=== PATIENT | female | born 1950 | race Caucasian/White ===

== ENCOUNTER → 2020-05-06 10:52 | Outpatient (BNVA) | payer MEDICARE, SELFPAY | PROVIDERS: PCP Physician Assistant; Visit Provider Anesthesiology | DX: G89.4 Chronic pain syndrome (principal); M10.00 Idiopathic gout, unspecified site; M51.36 Other intervertebral disc degeneration, lumbar region; M50.30 Other cervical disc degeneration, unspecified cervical region | CPT/HCPCS: 99212 ==

== ENCOUNTER → 2020-10-07 16:12 | Outpatient (BNVA) | payer MEDICARE, SELFPAY | PROVIDERS: PCP Physician Assistant; Visit Provider Anesthesiology | DX: M10.00 Idiopathic gout, unspecified site (principal); G89.4 Chronic pain syndrome; M51.36 Other intervertebral disc degeneration, lumbar region; M50.30 Other cervical disc degeneration, unspecified cervical region | CPT/HCPCS: 99212 ==

== ENCOUNTER 2021-06-04 06:16 | Day surgery (SDC) | payer MEDICARE, SELFPAY ==
[2021-06-04] VITALS (23 sets, daily range): BP systolic 96–139; BP diastolic 43–79; PULSE 93–104; RESP 15–18; TEMP 36.5–37.1; O2SAT 89–98; BMI 39.4
--- NOTE | ~2021-06-04 | FL_ITS ---
EXAMINATION: XR FLUOROSCOPY WITH IMAGES CLINICAL INFORMATION: Intrathecal drug delivery replacement. COMPARISON: None. TECHNIQUE: Fluoroscopy performed by Dr. Edmond Kumar. Fluoroscopy time: 0 minutes DAP: 1.1 mGycm2 Images: 1 FINDINGS: Single image demonstrates catheter and device projecting over the left pelvis/sacrum. FL/FL guidance in OR IMPRESSION: Fluoroscopy guidance for pain management procedure.
--- NOTE | 2021-06-04 06:55 | HO.ANESPROP2 ---
HPI - Anesthesia Eval Consult details Narrative: 71 F for intrathecal drug delivery replacement CAD , PA 49 years ago . Asthma , RA , GERD PMFSH Active Problems Active Problems: All Active Problems (Updated 05/06/20 @ 11:28 by Edmond Kumar MD) Other cervical disc degeneration, unspecified cervical region (Acute) Other intervertebral disc degeneration, lumbar region (Acute) Idiopathic gout, unspecified site (Acute) Chronic pain syndrome (Acute) Past Medical History Medical History (Updated 05/06/20 @ 11:28 by Edmond Kumar MD) Chronic pain syndrome Idiopathic gout, unspecified site Other cervical disc degeneration, unspecified cervical region Other intervertebral disc degeneration, lumbar region Family History Family history of problems with anesthesia: No Surgical History Surgical History (Updated 05/28/21 @ 14:54 by Yeni Negron RN) History of surgery History of Problems with Anesthesia: No Social History Social History Patient Tobacco Use Status: Former Tobacco user Second Hand Smoke Exposure: No Use of substances other than those prescribed or required for medical reasons: No Are you DNR?: No Advance Directives: No Advance Directives Information Provided: Yes Advance Directives on File: No Meds Allergies Allergy/AdvReac Type Severity Reaction Status Date / Time adhesive tape Allergy Unknown Unknown Verified 05/28/21 14:52 levofloxacin [Levaquin] Allergy Unknown unknown Verified 10/07/20 16:24 nortriptyline Allergy Unknown unknown Verified 10/07/20 16:24 vancomycin Allergy Unknown unknown Verified 10/07/20 16:24 Home Medications Medication Instructions Recorded Confirmed Last Taken Type alendronate 70 mg tablet 70 mg PO QWEEK 05/06/20 Unknown History atenolol 50 mg tablet 50 mg PO DAILY 05/06/20 06/04/21 History desonide 0.05 % topical cream appl TOPICAL 05/06/20 Unknown History duloxetine 30 mg capsule,delayed 30 mg PO BID PRN 05/06/20 Unknown History release furosemide 40 mg tablet 60 mg PO DAILY 05/06/20 Unknown History hydromorphone 2 mg tablet 2 mg PO BID PRN 05/06/20 Unknown History modafinil 200 mg tablet 200 mg PO DAILY 05/06/20 Unknown History oxcarbazepine 150 mg tablet 300 mg PO BID 05/06/20 Unknown History prednisone 1 mg tablet 4 mg PO DAILY 05/06/20 Unknown History topiramate 100 mg tablet 0 mg PO 05/06/20 Unknown History Exam Exam Date and Time: June 04, 2021 0655 Height,Weight and Vital Signs: Height 4 ft 11 in Weight 88.451 kg Last Vital Signs Temp 98.8 F 06/04/21 06:19 Pulse 94 06/04/21 06:19 Resp 18 06/04/21 06:19 BP 138/73 06/04/21 06:19 Pulse Ox 98 06/04/21 06:19 Airway Mallampati Class: I Neck ROM: Full Denture: Upper and Lower Loose/Missing/Broken Teeth: Yes Heart: rrr Lungs: bl breath sounds Assessment and Plan Assessment Anesthesia Assessment: Anesthesia Plan Discussed Final Anesthetic Review Family History of Problems with Anesthesia: No History of Problems with Anesthesia: No NPO: Yes ASA Class: III Final Preanesthetic Review: Consent Obtained/Reviewed and Anes Risks/Benef Reviewed Patient Risk: Intermediate Procedure Risk: Intermediate Anesthetic Plan Anesthetic Plan: GA Disposition: Standard PACU
--- NOTE | 2021-06-04 09:43 | MHC.SHP ---
Pre-Procedural Eval Section A Date of Service: 06/04/21 Changes since office visit: Yes Patient answered all questions The History & Physical has been completed within 30 days and I have reviewed it.: No Section B Chief Complaint: pain syndrome Details of Present Illness: chronic pain syndrome Relevant Family History (Specify if Yes): No Relevant Social History: None Present Medications: see Short Stay Collaborative assessment Medical History: No relevant PMH History of Previous Operations: Relevant previous surgery/procedure and date(s) Allergies: Allergies Allergy/AdvReac Type Severity Reaction Status Date / Time adhesive tape Allergy Unknown Unknown Verified 05/28/21 14:52 levofloxacin [Levaquin] Allergy Unknown unknown Verified 10/07/20 16:24 nortriptyline Allergy Unknown unknown Verified 10/07/20 16:24 vancomycin Allergy Unknown unknown Verified 10/07/20 16:24 Review of Systems Sugical H&P ROS: Negative: Cardiovascular, Respiratory, Neurological, Psychiatric, Hem-Onc, Allergic/Immunologic, Gastrointestinal, Genitourinary, Musculoskeletal, Integumentary, Endocrine and Eyes/Ears/Nose/Throat and Yes, Specify: Constitution (morbid obesity) Exam Surgical H&P Exam: Normal: HEENT, Normal: Heart, Normal: Lungs, Normal: Extremities, Normal: Abdomen, Normal: Skin and Normal: Neurological Plan Diagnosis/Plan: Unchanged I have reviewed the history and physical and performed a pertinent physical examination on my patient. No changes have occurred unless specified.
--- NOTE | 2021-06-04 09:48 | P.BOP_ITS ---
Brief Operative Note Date of Service: 06/04/21 Pre-op diagnosis: Chronic pain syndrome end of life of ItDD system pain pump Post-op diagnosis: same Procedure: removal and replacement of the intrathecal drug delivery system pain pump Implants: SynchroMed 2 40 cc pain pump ( [employer]) Surgeon: Edmond Kumar MD Anesthesia: GETA Was an Profiling Machine Setup Operator used for this Procedure?: No Estimated blood loss (mL): 16 Condition: stable Disposition: PACU
--- NOTE | 2021-06-04 09:51 | P.OP_ITS ---
Operative Note Operative Note Date of Service: 06/04/21 Narrative: Grace is very pleasant 71 years old female who is suffering from chronic pain syndrome. For the treatment of this condition she was inserted with intrathecal drug delivery system pain pump SynchroMed 2 [employer]. It was 6-1/2 years ago. Now the pump with at the end of its life span. She came today to the operating room to perform removal of the SynchroMed 2 pain pump 20 cc and replacement of the pump with 40 cc SynchroMed 2. After explaining informed consent the patient was taking to the operating room where she was positioned supine on the operating table. [place] [employer] monitors were applied and patient was induced with general endotracheal anesthesia. Time-out was performed delineating name and date of of the patient, correct side and site of the surgery, risk of fire, needs of DVT prophylaxis, need for antibiotics. The patient received 2 g of cefazolin 2 intravenously 30 minutes before the onset of incision. Patient's abdomen was prepped with ChloraPrep and draped with sterile utility towels, after that full-body fenestrated drape was applied to the area of the operation on the abdominal left upper quadrant of the patient and the area Of surgery was covered with Ioban film. intrathecal pain pump was palpated through the skin and after that recently incision was planned approximately in mid body of the intrathecal pain pump under the skin. The line of the season was infiltrated with mixture of lidocaine 2% and bupivacaine 0.5% and after that 10 cm horizontal incision was made using 10 blade scalpel. The capsule of the pain pump was found in the wound and was incised with the Metzenbaum scissors. After that the pump was located in the wound and it was easily delivered on the surface of the skin. Despite the patient's insistence that the previous surgery on her pump replacement was done with anchoring sutures I was not able to locate any anchoring sutures holding pump down the wound. Thorough hemostasis on the wound was performed intrathecal catheter was located and freed up from the adhesions. The side port of the old pain pump was accessed with 27 gauge 1 and 1/2 inch noncoring needle and free flow of 1 cc of cerebrospinal fluid was demonstrated in the syringe. the central access port of the pump was accessed using 24 gauge 1 and 1/2 inch noncoring needle and 11 cc of patient's mixture of medications containing bupivacaine, clonidine, Dilaudid was aspirated from the pump. After that the old intrathecal pump was disconnected and delivered away from the operating area. The new batch of the intrathecal medication obtained from the compounding pharmacy 20 mL as well as 11 cc reclaimed from the old pump were injected into the new 40 cc SynchroMed 2 intrathecal pump. After that 40 cc SynchroMed 2 intrathecal pump was delivered to the operating area and it was connected to the existing intrathecal catheter. Noncoring 27 gauge needle was used again to aspirate the side port catheter of the new pump and scan flow of CSF was observed in the needle and syringe. After that the pump pocket on the left upper quadrant of the abdomen of the patient was slightly widen in the medial and inferior corners to accommodate new pump which is bigger in size. Thorough irrigation was performed and thorough hemostasis was obtained; irrigation was done with solution containing normal saline with addition of cefazolin. 3 anchoring sutures Tycron 1-0 were applied in most superior medial corner of the wound' most inferior medial corner of the wound and most inferior lateral corner of the wound. the anchoring sutures were connected to break its own the pump. . After that the catheter was gathered behind the body of the pump and the pump was dislodged into the wound. Side port of the catheter was accessed again using 27 gauge noncoring needle. Again scan flow of CSF was obtained. After that anchoring sutures were tied. Irrigation of the wound was repeated and the wound was closed using 0 Polysorb suture. The skin edges were approximated by the 0-2 polisorb suture and after that luci were applied on the level of the skin. Bacitracin ointment was applied to the skin, sterile dressing with three 4x4 were applied. The patient was awaken, extubated and transfered stable to PACU. The new pump was programmed with exactly the same regimen the old pump was working.
[2021-06-04] MEDS: fentaNYL citrate/PF 100 MCG/2 ML VIAL 25 MCG IVPUSH ×3 (10:01→10:14)
[2021-06-04] MEDS: HYDROmorphone HCl 2 MG TABLET PO (10:33)
== END 2021-06-04 14:02 | disposition home or self-care (01) ==
PROVIDERS: PCP Physician Assistant; Visit Provider Anesthesiology
PROC: (CPT 62362; principal; 2021-06-04 07:30)
DX: G89.4 Chronic pain syndrome (principal); M54.50 Low back pain, unspecified; M51.36 Other intervertebral disc degeneration, lumbar region; M50.30 Other cervical disc degeneration, unspecified cervical region; M10.00 Idiopathic gout, unspecified site; Z88.1 Allergy status to other antibiotic agents; Z88.8 Allergy status to other drugs, medicaments and biological substances; Z79.899 Other long term (current) drug therapy
CPT/HCPCS: 62362; C1772; J0131; J0690; J1100; J2250; J2370; J2405; J3010

== ENCOUNTER → 2021-06-10 10:31 | Outpatient (BNVA) | payer MEDICARE, SELFPAY | PROVIDERS: PCP Physician Assistant; Visit Provider Anesthesiology | DX: Z48.89 Encounter for other specified surgical aftercare (principal); G89.4 Chronic pain syndrome; M10.00 Idiopathic gout, unspecified site; M51.36 Other intervertebral disc degeneration, lumbar region; M50.30 Other cervical disc degeneration, unspecified cervical region | CPT/HCPCS: 99212 ==

== ENCOUNTER → 2021-06-17 10:29 | Outpatient (BNVA) | payer MEDICARE, SELFPAY | PROVIDERS: PCP Physician Assistant; Visit Provider Anesthesiology | DX: M10.00 Idiopathic gout, unspecified site (principal); M51.36 Other intervertebral disc degeneration, lumbar region; M50.30 Other cervical disc degeneration, unspecified cervical region; G89.4 Chronic pain syndrome | CPT/HCPCS: 99212 ==

== ENCOUNTER → 2021-07-26 15:31 | Outpatient (BNVA) | payer MEDICARE, SELFPAY | PROVIDERS: PCP Physician Assistant; Visit Provider Anesthesiology | DX: M10.00 Idiopathic gout, unspecified site (principal); M51.36 Other intervertebral disc degeneration, lumbar region; M50.30 Other cervical disc degeneration, unspecified cervical region; G89.4 Chronic pain syndrome | CPT/HCPCS: 99212 ==

== ENCOUNTER 2024-08-05 15:53 | Emergency (ER) | payer MEDICARE, SELFPAY ==
[2024-08-05 15:59] VITALS: BP 146/74; PULSE 128; O2SAT 95
[2024-08-05 16:01] VITALS: BP 145/72; PULSE 88; RESP 20; TEMP 36.9; O2SAT 94; BMI 40.4
--- NOTE | 2024-08-05 17:08 | ED.BACK ---
HPI - Back Pain/Injury General Chief Complaint: Back Pain/Injury Stated Complaint: spinal implant for pain stopped working? Time Seen by Provider: 08/05/24 17:02 Source: patient Mode of arrival: EMS Limitations: no limitations History of Present Illness HPI Narrative: This is 74 years old patient with a history of chronic back pain followed by the pain clinic, baseline she is not ambulatory she is wheelchair-bound she has a spinal cord stimulator [employer], she is stating that the stimulator is no working. She denies any fever chills vomiting any systemic symptoms MD elicited complaint: back pain Pertinent past history: prior back pain Timing: constant Severity: moderate Quality: burning Location: lumbar spine Exacerbating factors: none Relieving factors: none Related Data Home Medications ?Medication ?Instructions ?Recorded ?Confirmed alendronate 70 mg tablet 70 mg PO QWEEK 05/06/20 atenolol 50 mg tablet 50 mg PO DAILY 05/06/20 desonide 0.05 % topical cream appl topical 05/06/20 duloxetine 30 mg capsule,delayed 30 mg PO BID PRN pain 05/06/20 release furosemide 40 mg tablet 60 mg PO DAILY 05/06/20 hydromorphone 2 mg tablet 2 mg PO BID PRN 05/06/20 modafinil 200 mg tablet 200 mg PO DAILY 05/06/20 oxcarbazepine 150 mg tablet 300 mg PO BID 05/06/20 prednisone 1 mg tablet 4 mg PO DAILY 05/06/20 topiramate 100 mg tablet 0 mg PO 05/06/20 Previous Rx's ?Medication ?Instructions ?Recorded cephalexin 500 mg tablet 500 mg PO Q8H 14 days #42 tabs 06/04/21 Allergies Allergy/AdvReac Type Severity Reaction Status Date / Time adhesive tape Allergy Unknown Unknown Verified 08/05/24 16:04 levofloxacin [Levaquin] Allergy Unknown unknown Verified 08/05/24 16:04 nortriptyline Allergy Unknown unknown Verified 08/05/24 16:04 vancomycin Allergy Unknown unknown Verified 08/05/24 16:04 Review of Systems Constitutional: Constitutional: Reports no additional constitutional complaints Cardiovascular: Cardiovascular: Reports no additional cardiovascular complaints PMFSH Past Medical History Attestation statement: The following information was validated with the patient. Medical History Osteoarthritis (arthritis due to wear and tear of joints) Other cervical disc degeneration, unspecified cervical region Other intervertebral disc degeneration, lumbar region Idiopathic gout, unspecified site Chronic pain syndrome Surgical History History of surgery Social History Social History Patient Tobacco Use Status: Former Tobacco user Second Hand Smoke Exposure: No Advance Directives: No Advance Directives Information Provided: No Do you have a plan to hurt others: No Plan Physical Exam Vital Signs: Vital Signs: Last Vital Signs Temp 98.5 F 08/05/24 16:01 Pulse 88 08/05/24 16:01 Resp 20 08/05/24 16:01 BP 145/72 H 08/05/24 16:01 Pulse Ox 94 08/05/24 16:01 O2 Del Method Room Air 08/05/24 16:01 BMI result Body Mass Index 40.4 No acute distress comfortable in the stretcher vital signs stable afebrile normotensive Const: General: cooperative Nutritional Appearance: obese Orientation/consciousness: patient oriented x3 HEENT: Head: Yes normal to inspection Ears: hearing grossly normal bilaterally Face and sinus: Yes normal facial exam Neck: Neck: Yes normal visual inspection Resp: Effort & Inspection: normal respiratory effort Auscultation: clear to auscultation bilaterally Cardio: Jugular venous distension: no JVD Rate: regular rate Rhythm: regular rhythm GI: Inspection: Yes normal to inspection Palpation (GI): Soft to palpation, not firm, nontender and no guarding Percussion: Yes normal to percussion Neuro: Other: At baseline cranial nerves are intact no deficit in strength upper or lower extremity General: patient oriented x3 Cognition (Neuro): normal cognition Medications Administered Discontinued Medications Generic Name Dose Route Start Last Admin Trade Name Freq PRN Reason Stop Dose Admin Diazepam 5 mg 08/05/24 17:08 08/05/24 17:15 Diazepam 5 Mg Tablet PO 08/05/24 17:09 5 mg ONCE ONE Administration Hydromorphone HCl 4 mg 08/05/24 17:08 08/05/24 17:15 Hydromorphone Hcl 2 Mg Tablet PO 08/05/24 17:09 4 mg ONCE ONE Administration Medical Decision Making Medical Decision Making MDM Narrative: Patient is here because of malfunctioning of the nerve stimulator I will contact the patient physician Differential Diagnosis Differential Diagnoses: The differential diagnosis associated with the presentation includes Malfunctioning of the back stimulator/chronic pain syndrome 17:18 I discussed the case with the pain management physician Edmond Christensen he will see the patient on Monday, we will increase for the next couple of days the Dilaudid 4 mg 3 times a day Admission/Observation Consideration of admission/observation: Escalation of care including admission/observation considered Consult Healthcare Provider Management of the patient was discussed with: Electrical Controls Assembler Edmond Kumar Discharge Plan Discharge Clinical Impression: Chronic back pain Patient Disposition: Home, Self-Care Instructions: Chronic Back Pain (DC) Additional Instructions: Your pain doctor we will see you on Monday we spoke with him we will send 2 days' worth of Dilaudid until you see him Prescriptions: No Action cephalexin 500 mg tablet 500 mg PO Q8H 14 Days Qty: 42 1RF Rx Instructions: take OTC probiotics 25 billion cultures in between the antibiotics doses. prednisone 1 mg tablet 4 mg PO DAILY topiramate 100 mg tablet 0 mg PO oxcarbazepine 150 mg tablet 300 mg PO BID duloxetine 30 mg capsule,delayed release(DR/EC) 30 mg PO BID PRN (Reason: pain) furosemide 40 mg tablet 60 mg PO DAILY atenolol 50 mg tablet 50 mg PO DAILY alendronate 70 mg tablet 70 mg PO QWEEK hydromorphone 2 mg tablet 2 mg PO BID PRN modafinil 200 mg tablet 200 mg PO DAILY desonide 0.05 % cream topical Referrals: Edmond Kumar MD [Physician] - 08/07/24 Print Language: Tanzanian
[2024-08-05] MEDS: HYDROmorphone HCl 2 MG TABLET 4 MG PO (17:15)
[2024-08-05] MEDS: diazePAM 5 MG TABLET PO (17:15)
--- NOTE | 2024-08-05 18:00 | PC.NURSE ---
Called patient's contact Rola to confirm patient's pharmacy and review plan of care, patient to be transported home via EMS, will call Rola when patient leaves so Rola can meet patient at her apt w/ keys. Rola aware of plan, waiting EMS ETA at this time.
--- NOTE | 2024-08-05 19:09 | PC.NURSE ---
Called pt's friend Rola to relay that patient should be picked up by EMS by 1999. Rola stated she got a message from [facility] stating that her OP Rx is not stocked there, asking for [facility] - Dr. Tabares will change Rx.
[2024-08-05 19:11] VITALS: BP 142/90; PULSE 94; RESP 16; TEMP 36.9; O2SAT 93
--- NOTE | 2024-08-05 20:23 | PC.NURSE ---
Spoke to Rola, informed her patient is on their way back home.
[2024-08-05 20:44] VITALS: BP 142/90; PULSE 94; RESP 16; TEMP 36.9; O2SAT 93
== END 2024-08-05 20:30 | disposition home or self-care (01) ==
PROVIDERS: Emergency Provider Emergency Medicine; PCP Nurse Practitioner Adult Health
DX: M54.50 Low back pain, unspecified (principal); Z79.899 Other long term (current) drug therapy
CPT/HCPCS: 99283; 99284

== ENCOUNTER 2024-08-07 10:46 | Outpatient (AMB) | payer MEDICARE, SELFPAY ==
[2024-08-07 10:52] VITALS: BP 190/100; O2SAT 97; BMI 38.4
--- NOTE | 2024-08-07 10:52 | MHC.OFFVIS ---
Vital Signs 08/07/24 10:52 Height 4 ft 11 in Weight 190 lb BMI 38.4 BP 190/100 H Blood Pressure Location Rt brachial Position Sitting Pulse Oximetry (%) 97 Oxygen Delivery Method Room Air Intake Visit Reasons: SCS Stopped Working Intake Note: Sahil from [employer] called appt made for a diagnostic 08/08 @ 11:00 in the Pain management office Floors Buffer Required: No Allergies adhesive tape Allergy (Unknown, Verified 08/07/24 11:09) Unknown levofloxacin [Levaquin] Allergy (Unknown, Verified 08/07/24 11:09) unknown nortriptyline Allergy (Unknown, Verified 08/07/24 11:09) unknown vancomycin Allergy (Unknown, Verified 08/07/24 11:09) unknown Medication List - Last Reconciled 08/07/24 by Richelle Corado, ARTIFICIAL BREEDING RANCH SUPERVISOR alendronate 70 mg PO QWEEK atenolol 50 mg PO DAILY cephalexin 500 mg PO Q8H 14 days desonide 0.05% appl topical duloxetine 30 mg PO BID PRN furosemide 60 mg PO DAILY hydromorphone (Dilaudid) 4 mg PO Q6H PRN hydromorphone 2 mg PO BID PRN modafinil 200 mg PO DAILY oxcarbazepine 300 mg PO BID prednisone 4 mg PO DAILY topiramate 0 mg PO HPI Comments Details: Grace is 74 years old female who presents in my office with complains of losing stimulation of spinal cord stimulator. Apparently this is [employer] laboratory spinal cord stimulator. Was implanted 10 years ago. She was told the device require replacement. She is also receiving for her chronic pain intrathecal pain pump treatment with hydromorphone delivered to the CSF. In 2019 she came to this office with a request to continue prescribing her intrathecal pain medications. I took over her prescription, she continued to receive pump ref[facility]. [facility] Medical History Osteoarthritis (arthritis due to wear and tear of joints) Other cervical disc degeneration, unspecified cervical region Other intervertebral disc degeneration, lumbar region Idiopathic gout, unspecified site Chronic pain syndrome Surgical History History of surgery Social History Patient Tobacco Use Status: Former Tobacco user Second Hand Smoke Exposure: No Review of Systems Const All systems reviewed & are unremarkable except as noted in HPI and below Physical Exam Vital Signs: Last Vital Signs BP 190/100 H 08/07/24 10:52 Pulse Ox 97 08/07/24 10:52 Oxygen Delivery Method Room Air 08/07/24 10:52 BMI result Body Mass Index 38.4 No acute distress comfortable in the stretcher vital signs stable afebrile normotensive Const General: cooperative Nutritional Appearance: obese Neck Neck: Yes normal visual inspection Resp Effort & Inspection: normal respiratory effort Cardio Jugular venous distension: no JVD GI Inspection: Yes normal to inspection Back/Spine/Pelvis Cervical Spine: normal cervical lordosis Assessment & Plan Assessment & Plan (1) Spinal cord stimulator dysfunction: Code(s): T85.192A - Other mechanical complication of implanted electronic neurostimulator of spinal cord electrode (lead), initial encounter Category: Medical Plan I will send this patient for evaluation of thoracic lumbar spine and pelvis to see the devices she has. She has some sort of a device implanted in her pelvis as well. After that we will get into contact with the [employer] advertising sales representative and we will schedule replacement of the battery. Orders: Orders XR thoracic spine 3V Today T85.192A - Other mechanical complication of implanted electronic neurostimulator of spinal cord electrode (lead), initial encounter XR lumbar spine 4V min Today T85.192A - Other mechanical complication of implanted electronic neurostimulator of spinal cord electrode (lead), initial encounter XR pelvis min 3V Today T85.192A - Other mechanical complication of implanted electronic neurostimulator of spinal cord electrode (lead), initial encounter Coding Level of Care Code Est Pt Level 3 (63065) Diagnoses Spinal cord stimulator dysfunction T85.192A
--- OUTSIDE RECORDS SUMMARY | 2024-08-07 12:53 | XMS_ITS ---
Author Organization [facility] Care Team Providers Care Senior Sas Developer Name Role Phone APOLINAR RIVERA Unavailable Unavailable Care Team Name Role Address Phone Organization Dates APOLINAR RIVERA PCP [address] [facility], [place], [address], [place] (Office): : [facility] 05/03/2015 - 05/13/2015 Mental Status Section Date Assessment Total Score Description 05/13/2015 BIMS 15 cognitively int act PHQ-9 03 minimal depress ion 05/08/2015 BIMS 15 cognitively int act PHQ-9 06 mild depression Problems Problem # Description Date of onset Resolved Date Code CodeSystem Concern Status 1 ESSENTIAL (PRIMARY) HYPERTENSION 05/02/[address] active 2 GASTRO-ESOPHAGEAL REFLUX DISEASE WITHOUT ESOPHAGITIS 05/02/[address] active 3 HYPERLIPIDEMIA, UNSPECIFIED 05/02/[address] active 4 MAJOR DEPRESSIVE DISORDER, SINGLE EPISODE, UNSPECIFIED 05/02/[address] active 5 NEUROMUSCULAR DYSFUNCTION OF BLADDER, UNSPECIFIED 05/02/[address] active 6 OTHER CHRONIC PAIN 05/02/[address] active 7 POLYNEUROPATHY, UNSPECIFIED 05/02/[address] active 8 RHABDOMYOLYSIS 05/02/[address] ac tive 9 UNSPECIFIED OSTEOARTHRITIS, UNSPECIFIED SITE 05/02/[address] active Reason for Referral No Reasons for Referral Entered Social History Social History Observation Description Start Date End Date Code Code System Current Smoking Status Tobacco smoking consumption unknown 282370692 SNOMED CT Sex Assigned At Female 1950 [address]-6 [facility]
--- OUTSIDE RECORDS SUMMARY | 2024-08-07 12:53 | XMS_ITS | Clinical Summary ---
Author Organization [facility] Facility Address [address] [place] [id number] Care Team Providers Care Family Assessment Worker Name Role Phone Nam Gordon PA-C Primary Care Provider [phone] Social History Tobacco Use Types Packs/Day Years Used Date Smoking Tobacco: Former Cigarettes Q uit: 04/05/1982 Comments:Smoking History Inf o:Every day Alcohol Use Standard Drinks/Week Comments No 0 (1 standard drink = 0.6 oz pur e alcohol) Comments Unknown Sex and Gender Information Value Date Recorded Sex Assigned at Not on file Legal Sex Female 4:33 PM EST Gender Identity Not on file Sexual Orientation Not on file Plan of Treatment Health Maintenance Due Date Last Done Comments Pneumococcal Vaccine: 65+ Ye ars (1 of 2 - PCV) 1956 Influenza Vaccine (#1) 2024 03/17/2017 Hepatitis B Vaccine Aged Out No longe r eligible based on patient's age to complete this topic Insurance MEDICARE [facility] Care Teams Family Assessment Worker Relationship Specialty Start Date End Date Nam Gordon PA-C [address] [place] [address] PCP - General 03/26/19
--- NOTE | 2024-08-08 11:13 | MHC.OFFVIS ---
Vital Signs 08/07/24 10:52 Height 4 ft 11 in Weight 190 lb BMI 38.4 BP 190/100 H Blood Pressure Location Rt brachial Position Sitting Pulse Oximetry (%) 97 Oxygen Delivery Method Room Air Intake Visit Reasons: SCS Stopped Working Allergies adhesive tape Allergy (Unknown, Verified 08/08/24 10:55) Unknown levofloxacin [Levaquin] Allergy (Unknown, Verified 08/08/24 10:55) unknown nortriptyline Allergy (Unknown, Verified 08/08/24 10:55) unknown vancomycin Allergy (Unknown, Verified 08/08/24 10:55) unknown Medication List - Last Reconciled 08/07/24 by Richelle Corado, [employer] alendronate 70 mg PO QWEEK atenolol 50 mg PO DAILY cephalexin 500 mg PO Q8H 14 days desonide 0.05% appl topical duloxetine 30 mg PO BID PRN furosemide 60 mg PO DAILY hydromorphone (Dilaudid) 4 mg PO Q6H PRN hydromorphone 2 mg PO BID PRN modafinil 200 mg PO DAILY oxcarbazepine 300 mg PO BID prednisone 4 mg PO DAILY topiramate 0 mg PO HPI Comments Details: Grace is back in my office to discuss the results of the x-rays. She has surgically implanted [employer] spinal cord stimulator which is not working at this time. She complains on severe pain radiating into bilateral lower extremities. Her blood pressure is elevated today because of her pain. I recommended her to go to the primary care physician to treat her blood pressure. We will on my side expedite the replacement of the battery so she will have appropriate pain relief again. She also has old wires in her sacral foraminae to treat incontinence they are not connected to any device. She stated that she wants to remove them. I told her that I will attempt to remove those wires to to possibly help her to go to MRI for investigation of the lumbar spine. Prior: c/o losing stimulation of spinal cord stimulator. Apparently this is [email or web address] spinal cord stimulator. Was implanted 10 years ago. She was told the device require replacement. She is also receiving for her chronic pain intrathecal pain pump treatment with hydromorphone delivered to the CSF. In 2019 she came to this office with a request to continue prescribing her intrathecal pain medications. I took over her prescription, she continued to receive pump refills with [facility] local nurse. PFSH Medical History Osteoarthritis (arthritis due to wear and tear of joints) Other cervical disc degeneration, unspecified cervical region Other intervertebral disc degeneration, lumbar region Idiopathic gout, unspecified site Chronic pain syndrome Surgical History History of surgery Social History Patient Tobacco Use Status: Former Tobacco user Second Hand Smoke Exposure: No Review of Systems Const All systems reviewed & are unremarkable except as noted in HPI and below Physical Exam Vital Signs: Last Vital Signs BP 190/100 H 08/07/24 10:52 Pulse Ox 97 08/07/24 10:52 Oxygen Delivery Method Room Air 08/07/24 10:52 BMI result Body Mass Index 38.4 No acute distress comfortable in the stretcher vital signs stable afebrile normotensive Const General: cooperative Nutritional Appearance: obese Neck Neck: Yes normal visual inspection Resp Effort & Inspection: normal respiratory effort Cardio Jugular venous distension: no JVD GI Inspection: Yes normal to inspection Back/Spine/Pelvis Cervical Spine: normal cervical lordosis Assessment & Plan Assessment & Plan (1) Spinal cord stimulator dysfunction: Code(s): T85.192A - Other mechanical complication of implanted electronic neurostimulator of spinal cord electrode (lead), initial encounter Category: Medical (2) S/P insertion of sacral nerve stimulator: Code(s): Z96.89 - Presence of other specified functional implants Category: Surgical Plan I will schedule removal and replacement of the [employer] battery of the spinal cord stimulator as soon as possible. I also will attempt on this procedure to remove the sacral stimulator wires from her back. Orders: Orders XR thoracic spine 3V 08/07/24 T85.192A - Other mechanical complication of implanted electronic neurostimulator of spinal cord electrode (lead), initial encounter XR lumbar spine 4V min 08/07/24 T85.192A - Other mechanical complication of implanted electronic neurostimulator of spinal cord electrode (lead), initial encounter XR pelvis min 3V 08/07/24 T85.192A - Other mechanical complication of implanted electronic neurostimulator of spinal cord electrode (lead), initial encounter Coding Level of Care Code Est Pt Level 3 (30427) Diagnoses Spinal cord stimulator dysfunction T85.192A S/P insertion of sacral nerve stimulator Z96.89
== END 2024-08-07 11:19 | disposition home or self-care (01) ==
LOC: HO.PMC 10:46
PROVIDERS: PCP Nurse Practitioner Adult Health; Visit Provider Anesthesiology
DX: T85.192A Other mechanical complication of implanted electronic neurostimulator of spinal cord electrode (lead), initial encounter (principal)
CPT/HCPCS: 99213

== ENCOUNTER 2024-08-07 10:46 | Outpatient (REF) | payer MEDICARE, SELFPAY ==
--- NOTE | ~2024-08-07 | XR_ITS ---
CLINICAL HISTORY: T85.192A - Other mechanical complication of implanted electronic neurost... 6 views lumbar spine Comparison: None Findings: There is scoliotic curvature No acute fractures or dislocation. Multiple level degenerative disc and facet change. IMPRESSION: No acute findings. This document has been electronically signed by: Abhijit Love MD on 08/09/2024 07:57:45
--- NOTE | ~2024-08-07 | XR_ITS ---
CLINICAL HISTORY: T85.192A - Other mechanical complication of implanted electronic neurost... 3 views thoracic spine Comparison: None Findings: Scoliotic curvature. No acute fractures or dislocation. Multiple level degenerative disc change. IMPRESSION: No acute findings. This document has been electronically signed by: Abhijit Love MD on 08/09/2024 07:55:52
--- NOTE | ~2024-08-07 | XR_ITS ---
CLINICAL HISTORY: T85.192A - Other mechanical complication of implanted electronic neurost... Pelvis, two views FINDINGS: Bony structures are intact with alignment maintained. Implanted leads are noted in the posterior soft tissues. There are no other opaque foreign bodies. IMPRESSION: No acute findings This document has been electronically signed by: Abhijit Love MD on 08/09/2024 07:24:49
== END 2024-08-07 10:47 | disposition home or self-care (01) ==
LOC: HO.XRAY 10:46
PROVIDERS: PCP Nurse Practitioner Adult Health; Visit Provider Anesthesiology
DX: T85.192A Other mechanical complication of implanted electronic neurostimulator of spinal cord electrode (lead), initial encounter (principal)
CPT/HCPCS: 72072; 72110; 72190; 99212

== ENCOUNTER → 2024-08-07 11:32 | Outpatient (BNV) | payer MEDICARE, SELFPAY | PROVIDERS: PCP Nurse Practitioner Adult Health; Visit Provider Specialist | DX: T85.192A Other mechanical complication of implanted electronic neurostimulator of spinal cord electrode (lead), initial encounter (principal) | CPT/HCPCS: 72072; 72110; 72190 ==

== ENCOUNTER 2024-09-06 05:46 | Day surgery (SDC) | payer MEDICARE, SELFPAY ==
--- OUTSIDE RECORDS SUMMARY | 2024-08-28 14:26 | XMS_ITS | Data Portability ---
Author Organization [facility], FOR[facility]LY [facility] Address [address] [place] [address] Care Team Providers Care Spinner Hand Name Role Phone SRIKANTH, BRANDY Referring Provider [phone] JAN MASON OTHER JACKIE AARON OTHER [facility] Production Supervisor SON PALACIOS OTHER [facility] Assurance Specialist TIFFANIE STARKS Primary Care Provider [facility] Joy Operator [facility] Sports Medicine [facility] Pain Management [phone] Assessment Encounter Date Assessment Date Assessment LastModified by Organization Details LastModified Time 08/22/2023 08/22/2023 After a discussi on of treatment options, which included consideration of best practices and patient preferences, the following treatment plan and objectives were adopted: My total time spent today documenting and providing coordinated care for this patient is 40 ___. I have reviewed, collected, and updated relevant history and performed a physical exam. I have coordinated care with: the patient's family. I have reviewed: labs, x-rays, specialty notes, and discharge summaries as appropriate. Below is my assessment and plan for this patient? s care today. [email or web address] Not available 08/22/2023 14:43:51 12/28/2023 12/28/2023 We completed you r Medicare Wellness exam today. This was an opportunity to assess your overall well being including your ability to care for yourself, your mobility, memory, mental health, as well as your safety. With advancing age, it is important to assign someone in your life as your Health Care Proxy (HCP). This person should know what is important to you and what your wishes are for medical procedures if you cannot communicate your wishes yourself (severe illness, unconsciousness). We discussed having a completed Health Care Proxy form today. In addition, today we started a conversation about your End of Life wishes. These conversations will continue over the years. Please consider reading the book, Being Mortal by Abel Ybarra to help frame future conversations. We discussed the purpose of a MOLST form (Medical Orders for Life Sustaining Treatment) and completed this form if appropriate per your wishes. Vision and Hearing are senses that are critically important as we age. When impaired, they can contribute to memory loss, falls, and make it harder to drive, talk to family and friends, and engage in the world. Please get your vision checked yearly and your hearing checked when you start to notice hearing loss. We discussed approaches to lowering your risk of heart disease and stroke . Your blood pressure is at goal. Your cholesterol is at goal. We discussed cancer screening you may need as well as vaccines to prevent infections. Colon Cancer : Your risk of colon cancer is . Due for colorectal screening:not needed due to age. If you are not planning to have a colonoscopy please screen with stool cards yearly. Breast Cancer : Breast Cancer Screening (mammography). Next mammogram due: not needed. Cervical Cancer Screening (pap test). Next pap due: not needed. . Influenza Vaccine : Flu shot yearly. Tetanus Vaccine : Every 10 years. Due: 2025. The following vaccines are available from your pharmacy: Pneumonia Vaccine : PCV20: once after age 65. Shingles Vaccine : 2 shots after age 50. Covid Vaccine : Make sure you have received the most up to date covid vaccine. Your personal health goal for the year is: pkeough Not available 12/28/2023 21:17:40 07/09/2024 07/09/2024 After a discussi on of treatment options, which included consideration of best practices and patient preferences, the following treatment plan and objectives were adopted: My total time spent today documenting and providing coordinated care for this patient is 30 ___. I have reviewed, collected, and updated relevant history and performed a physical exam. We reviewed your chronic medical conditions and updated your plan for management. Please review instructions below. We have discussed your personal goals and discussed how to reach your goals. Please reach out to us via the Portal or phone if you have questions about your chronic conditions or if you or your caregivers require assistance in meeting your goals. Please visit our website [employer] for more patient resources. As part of your care plan, we will help coordinate your ongoing medical needs, arrange for durable medical equipment, renew prescriptions and necessary prior authorizations, facilitate getting referrals and collaborating with specialist, referrals for VNA services. pkeough Not available 07/09/2024 12:04:12 07/19/2024 07/19/2024 We reviewed your chronic medical conditions and updated your plan for management. Please review instructions below. We have discussed your personal goals and discussed how to reach your goals. Please reach out to us via the Portal or phone if you have questions about your chronic conditions or if you or your caregivers require assistance in meeting your goals. Please visit our website [employer] for more patient resources. As part of your care plan, we will help coordinate your ongoing medical needs, arrange for durable medical equipment, renew prescriptions and necessary prior authorizations, facilitate getting referrals and collaborating with specialist, referrals for VNA services. [email or web address] Not available 07/19/2024 15:43:52 08/12/2024 08/12/2024 Unable to access video- no access to internet Patient agreed to this visit via a secure telehealth platform. Patient understands this is a scheduled visit and the usual procedures with regard to billing and confidentiality apply. Patient was notified that the provider location is [facility] Patient location: home During the visit the patient? s medical history and medical record were reviewed. The patient was notified to call our office for worsening or urgent symptoms. We reviewed your chronic medical conditions and updated your plan for management. Please review instructions below. We have discussed your personal goals and discussed how to reach your goals. Please reach out to us via the Portal or phone if you have questions about your chronic conditions or if you or your caregivers require assistance in meeting your goals. Please visit our website [employer] for more patient resources. As part of your care plan, we will help coordinate your ongoing medical needs, arrange for durable medical equipment, renew prescriptions and necessary prior authorizations, facilitate getting referrals and collaborating with specialist, referrals for VNA services. [email or web address] Not available 08/13/2024 10:25:03 Plan of Treatment Reminders Order Date Submit Date Provider Last Modified By Organization Details Last Modified Time Details Appointments Wellness Visit 30 2024 04:00P M Tiffanie Starks NP Not available Not available Not available Lab drug screen, saliva - HYDROmor phone 2 mg tablet 2023 024 [facility], [address], [place], [address], 01/04/2024 16:16:41 culture, urine 2023 024 [facility], [address] [facility], [place], [address], 08/25/2023 11:22:37 urinalys is, dipstick 2023 024 [facility], [address] [place], [address], 08/23/2023 18:57:13 Referral visiting nurse referral - request OT ability to manage bathroom , house is declinin g d/t worsenin g strength , pain. Has limited ROM could benefit with VNA OT to help improve safety, security in her home, doing ADLs. 2023 024 [email or web address] Not available 02/09/2024 15:56:57 Procedures None recorded . Surgeries None recorded . Imaging MAMMO, screenin g, tomosynt hesis, bilatera l - 2nd Look Consult/ Diag Mammo/US Breast/G uided Asp/Parma st Bx/Clip Placemen t, as clinical ly indicate d. 2023 024 [facility] (Imaging), [address], [place], [address], 08/22/2023 16:27:18 Medication Orders hydromor phone 2 mg tablet 2024 025 [facility], [address] [facility] [address], [place], [address], 08/12/2024 16:07:10 Hibiclen s 4 % topical liquid 2024 025 [id number], [address] [place], [address], 07/19/2024 17:10:21 mupiroci n calcium 2 % topical cream 2024 025 [email or web address] [id number], [address] [place], [address], 07/24/2024 13:01:12 Bactrim DS 800 mg-160 mg tablet 2023 024 [email or web address] [id number], [address] [place], [address], 08/22/2023 14:59:13 Patient TargetsNo targets recorded. Patient Instructions Encounter Date Encounter Id Patient Instructions Last Modified By Organization Details Last Modified Time 08/22/2023 [id number] high blood pressure: care instructions [email or web address] Not available 08/22/2023 14:59:13 learning about high blood pressure pkeough Not available 08/22/2023 14:59:13 My Health To Do List Specific Analgesia Plan: {{Continue present regimen* Adjust dose of present analgesic Switch analgesics Add/Ad just concomitant therapy Discontin ue/taper off opioid therapy}} Specific Goals for next visit {{increase exercise* start stress management improv e sleeping start Yoga start TaiChi see therapist}}The patient is currently {{at* not at}} their goal of safe, stable use of narcotic pain medication to improve their functioning in life. Since the last visit there has been {{activity of concern no activity of concern*}}:{{# ov eruse of meds request for an early refill abuse of staff noncomplian ce with UDS or pill count requests abnormal UDS}} Patient today is {{at high risk at moderate risk at low risk*}} for {{abuse of meds* misuse of meds}}. Monitoring will include {{pill counts repeat UDS* closer follow-up with shorter scripts}}. Patients current goals of {{better sleep more activity* return to work return to school improved ADL's improved self care improved function in roles}} were discussed with patient, unlikelihood of 100% reduction in pain made clear. Patient has read narcotics contract and understands the properties of narcotic medication. [email or web address] Not available 08/22/2023 13:37:26 12/28/2023 [id number] My Health To Do List Specific Analgesia Plan: {{Continue present regimen* Adjust dose of present analgesic Switch analgesics Add/Ad just concomitant therapy Discontin ue/taper off opioid therapy}} Specific Goals for next visit {{increase exercise* start stress management improv e sleeping start Yoga start TaiChi see therapist}}The patient is currently {{at* not at}} their goal of safe, stable use of narcotic pain medication to improve their functioning in life. Since the last visit there has been {{activity of concern no activity of concern*}}:{{# ov eruse of meds request for an early refill abuse of staff noncomplian ce with UDS or pill count requests abnormal UDS}} Patient today is {{at high risk at moderate risk at low risk*}} for {{abuse of meds* misuse of meds}}. Monitoring will include {{pill counts repeat UDS* closer follow-up with shorter scripts}}. Patients current goals of {{better sleep more activity* return to work return to school improved ADL's improved self care improved function in roles}} were discussed with patient, unlikelihood of 100% reduction in pain made clear. Patient has read narcotics contract and understands the properties of narcotic medication. [email or web address] Not available 12/28/2023 10:03:17 07/09/2024 [id number] high blood pressure: care instructions pkeough Not available 07/09/2024 12:07:21 learning about high blood pressure pkeough Not available 07/09/2024 12:07:21 Reason for Referral Visiting Nurse Referral for Lumbar spondylosis request OT ability to manage bathroom, house is declining d/t worsening strength, pain. Has limited ROM could benefit with VNA OT to help improve safety, security in her home, doing ADLs. Referring Physician: Tiffanie Starks, Family Medicine, Encounter Date: 12/28/2023 Results Created Date Observation Date Name Description Value Unit Range Abnormal Flag Note LastModifiedBy Organization Detail LastModifiedTime 08/23/19 24 08/23/2023 URINA LYSIS color YELLOW yellow Not Available [facility] [address] [place], [address], 08/23/2023 18:57:13 08/23/19 24 08/23/2023 URINA LYSIS clarity CLEAR Not Available [facility] [address] [place], [address], 08/23/2023 18:57:13 08/23/19 24 08/23/2023 URINA LYSIS glucose NEGATI VE negati ve Not Available [facility] [address] [place], [address], 08/23/2023 18:57:13 08/23/19 24 08/23/2023 URINA LYSIS bili NEGATI VE negati ve Not Available [facility] [address] [place], [address], 08/23/2023 18:57:13 08/23/19 24 08/23/2023 URINA LYSIS ketones NEGATI VE negati ve Not Available [facility] [address] [place], [address], 08/23/2023 18:57:13 08/23/19 24 08/23/2023 URINA LYSIS specific gravity 1.020 1.005- 1.030 Not Available [facility] [address] [place], [address], 08/23/2023 18:57:13 08/23/19 24 08/23/2023 URINA LYSIS blood NEGATI VE negati ve Not Available [facility] ([facility]) [address] [place], [address], 08/23/2023 18:57:13 08/23/19 24 08/23/2023 URINA LYSIS pH 6.0 5.0-8. 0 Not Available [facility] [address] [place], [address], 08/23/2023 18:57:13 08/23/19 24 08/23/2023 URINA LYSIS protein NEGATI VE negati ve Not Available [facility] [address] [place], [address], 08/23/2023 18:57:13 08/23/19 24 08/23/2023 URINA LYSIS nitrite NEGATI VE negati ve Not Available [facility] [address] [place], [address], 08/23/2023 18:57:13 08/23/19 24 08/23/2023 URINA LYSIS leukocyte esterase, ur 1+ negati ve abnormal Not Available [facility] [address] [place], [address], 08/23/2023 18:57:13 08/23/19 24 08/23/2023 URINE SEDIM ENT WBC 11-20 /hpf none seen abnormal Not Available [facility] [address] [place], [address], 08/23/2023 19:07:23 08/23/19 24 08/23/2023 URINE SEDIM ENT RBC 0-2 /hpf none seen abnormal Not Available [facility] [address] [place], [address], 08/23/2023 19:07:23 08/23/19 24 08/23/2023 URINE SEDIM ENT urine epithelial 5-10 none seen abnormal Not Available [facility] [address] [place], [address], 08/23/2023 19:07:23 08/23/19 24 08/23/2023 URINE SEDIM ENT mucus TRACE /hpf none seen abnormal Not Available [facility] [address] [place], [address], 08/23/2023 19:07:23 08/23/19 24 08/23/2023 URINE SEDIM ENT bacteria 1+ /hpf none seen abnormal Not Available [facility] [address] [place], [address], 08/23/2023 19:07:23 08/23/19 24 08/23/2023 URINE CULTU RE special requests NONE Not Available [facility] [address] [place], [address], 08/25/2023 11:22:37 08/23/19 24 08/25/2023 URINE CULTU RE urine culture abnormal >100, 000 colon y formi ng units per mL MIXED AIME (3 OR MORE COLON Y TYPES ) Cultu re indic ates conta minat ion. Pleas e resub shoaib if neces alexia. Not Available [facility] ([facility] [address] [place], [address], 08/25/2023 11:22:37 12/28/19 24 01/04/2024 DRUG TOX AMPHE TAMIN ES, W/CON F, ORAL FLUID amphetamines NEGATI VE NG/mL <10 See Note 1 See Note 2 Not Available [facility] [address], [address], 01/04/2024 13:53:41 12/28/19 24 01/04/2024 DRUG TOX AMPHE TAMIN ES, W/CON F, ORAL FLUID barbiturates NEGATI VE NG/mL <10 See Note 1 See Note 2 Not Available [facility] [place] [facility] [address], [place], [address], 01/04/2024 13:53:41 12/28/19 24 01/04/2024 DRUG TOX AMPHE TAMIN ES, W/CON F, ORAL FLUID benzodiazepi elmira NEGATI VE NG/mL <0.50 See Note 1 See Note 2 Not Available [facility] [address], [place], [address], 01/04/2024 13:53:41 12/28/19 24 01/04/2024 DRUG TOX AMPHE TAMIN ES, W/CON F, ORAL FLUID cocaine NEGATI VE NG/mL <5.0 See Note 1 See Note 2 Not Available [facility] [place] [facility] [address], [place], [address], 01/04/2024 13:53:41 12/28/19 24 01/04/2024 DRUG TOX AMPHE TAMIN ES, W/CON F, ORAL FLUID methadone NEGATI VE NG/mL <5.0 See Note 1 See Note 2 Not Available [facility] [place] [facility] [address], [place], [address], 01/04/2024 13:53:41 12/28/19 24 01/04/2024 DRUG TOX AMPHE TAMIN ES, W/CON F, ORAL FLUID buprenorphin e NEGATI VE NG/mL <0.10 See Note 1 See Note 2 Not Available [facility] [place] [facility] [address], [place], [address], 01/04/2024 13:53:41 12/28/19 24 01/04/2024 DRUG TOX AMPHE TAMIN ES, W/CON F, ORAL FLUID fentanyl NEGATI VE NG/mL <0.10 See Note 1 See Note 2 Not Available [facility] [place] [facility] [address], [place], [address], 01/04/2024 13:53:41 12/28/19 24 01/04/2024 DRUG TOX AMPHE TAMIN ES, W/CON F, ORAL FLUID heroin metabolite NEGATI VE NG/mL <1.0 See Note 1 See Note 2 Not Available [facility] [place] [facility] [address], [place], [address], 01/04/2024 13:53:41 12/28/19 24 01/04/2024 DRUG TOX AMPHE TAMIN ES, W/CON F, ORAL FLUID opiates POSITI VE NG/mL <2.5 abnormal See Note 1 Not Available [facility] [place] [facility] [address], [place], [address], 01/04/2024 13:53:41 12/28/19 24 01/04/2024 DRUG TOX AMPHE TAMIN ES, W/CON F, ORAL FLUID codeine NEGATI VE NG/mL <2.5 See Note 1 Not Available [facility] [place] [facility] [address], [place], [address], 01/04/2024 13:53:41 12/28/19 24 01/04/2024 DRUG TOX AMPHE TAMIN ES, W/CON F, ORAL FLUID dihydrocodei ne NEGATI VE NG/mL <2.5 See Note 1 Not Available [facility] [place] [facility] [address], [place], [address], 01/04/2024 13:53:41 12/28/19 24 01/04/2024 DRUG TOX AMPHE TAMIN ES, W/CON F, ORAL FLUID hydrocodone NEGATI VE NG/mL <2.5 See Note 1 Not Available [facility] [place] [facility] [address], [place], [address], 01/04/2024 13:53:41 12/28/19 24 01/04/2024 DRUG TOX AMPHE TAMIN ES, W/CON F, ORAL FLUID hydromorphon e NEGATI VE NG/mL <2.5 See Note 1 Not Available [facility] [address], [place], [address], 01/04/2024 13:53:41 12/28/19 24 01/04/2024 DRUG TOX AMPHE TAMIN ES, W/CON F, ORAL FLUID morphine NEGATI VE NG/mL <2.5 See Note 1 Not Available [facility] [place] [facility] [address], [place], [address], 01/04/2024 13:53:41 12/28/19 24 01/04/2024 DRUG TOX AMPHE TAMIN ES, W/CON F, ORAL FLUID norhydrocodo ne NEGATI VE NG/mL <2.5 See Note 1 Not Available [facility] [place] [facility] [address], [place], [address], 01/04/2024 13:53:41 12/28/19 24 01/04/2024 DRUG TOX AMPHE TAMIN ES, W/CON F, ORAL FLUID noroxycodone 15.0 NG/mL <2.5 high Norox ycodo ne is a metab olite of oxyco done. See Note 1 Not Available [facility] [place] [facility] [address], [place], [address], 01/04/2024 13:53:41 12/28/19 24 01/04/2024 DRUG TOX AMPHE TAMIN ES, W/CON F, ORAL FLUID oxycodone 47.4 NG/mL <2.5 high See Note 1 Not Available [facility] [place] [facility] [address], [place], [address], 01/04/2024 13:53:41 12/28/19 24 01/04/2024 DRUG TOX AMPHE TAMIN ES, W/CON F, ORAL FLUID oxymorphone NEGATI VE NG/mL <2.5 See Note 1 See Note 2 Not Available [facility] [place] [facility] [address], [place], [address], 01/04/2024 13:53:41 12/28/19 24 01/04/2024 DRUG TOX AMPHE TAMIN ES, W/CON F, ORAL FLUID tapentadol NEGATI VE NG/mL <5.0 See Note 1 See Note 2 Not Available [facility] [place] [facility] [address], [place], [address], 01/04/2024 13:53:41 12/28/19 24 01/04/2024 DRUG TOX AMPHSandor ALBRECHT ES, W/CON F, ORAL FLUID tramadol NEGATI VE NG/mL <5.0 See Note 1 See Note 2 Note 1 This test was devlucina wood and its irene tical perfo rmanc e flex cteri stics have been deter mined by [facility]. It has not been clear ed or appro chely by the FDA. This assay has been valid ated pursu ant to the CLIA regul ation s and is used for clini devorah purpo ses. Note 2 For addit ional infor guillermo tai e refer to: http: //[facility] stdia gnost ics.c om/fa q/FAQ 186 (This link is being provi ded for infor stacy nal/ educa renita l purpo ses only. ) This drug testi ng is for medic al treat ment only. Irene sis was perfo rmed as non-f orens ic testi ng and these resul ts shoul d be used only by healt hcare provi ders to rende r diagn osis or treat ment, or to monit or progr ess of medic al condi tions . For giles tance with inter preti ng these drug resul ts, guillermo e conta ct a [facility] Toxic ology Speci alist : 1-877 -40-R X TOX ([phone] ), M-F, 8am-6 pm EST. Not Available [facility] [place] [facility] [address], [place], [address], 01/04/2024 13:53:41 08/22/19 24 08/22/2023 MAMMO , scree laura, tomos ynthe sis, bilat eral MAMMO, SCREEN , WILL, BILAT: 08/22/19 24. BI-RAD S: 1 CLINIC AL: 73-yea r old Female for Bilate ral Screen ing Mammog karel. No person al or first- degree family histor y of breast cancer . The patien t report s pain (1 to 7 days) in the left breast . PRIOR EXAMS: Review ed previo us images from 2018. MAMMOG EDUARDO TECHNI QUE: 3D mammog eduardo (tomos ynthes is) and 2D mammog eduardo (C-vie w) images are genera claudia. Images review ed with a CAD system . DENSIT Y A. Almost entire ly fatty. MAMMOG EDUARDO FINDIN GS Bilate ral: No suspic ious mass, asymme try, microc alcifi cation , or other abnorm ality seen. CONCLU CAL * No eviden ce of malign tamara. RECOMM ENDATI ONS Bilate ral * Annual screen ing mammog eduardo. ADMINI STRATI VE: A lay summar y was mailed to your patien t indica ting the result s and recomm endati ons for follow -up. OVERAL L ASSESS MENT CATEGO RY BI-RAD S-1: Negati ve. The [employer] recomm ends annual screen ing mammog eduardo beginn ing at age 40 for women with averag e risk of breast cancer . ELECTR ONICAL LY SIGNED : David Jain M.D. on 2023 at 04:26: 32 PM Shaye gridern: David Jain [email or web address] [facility] (Imaging) [address], [place], [address], 08/22/2023 16:30:46 12/29/19 24 12/05/2023 CT, cervi devorah spine , w/ contr ast No observ ation record ed. BARCODE Not Available 2023 10:52:53 12/29/19 24 09/19/2023 XR, shoul nita, 2 or more view No observ ation record ed. BARCODE Not Available 2023 10:52:53 08/10/19 25 08/07/2024 XR, pelvi s No observ ation record ed. [address], [place], [address], 08/12/2024 16:02:52 08/10/19 25 08/07/2024 XR, thora cic spine No observ ation record ed. sanjuana [facility] [address] [place], [address], 08/12/2024 16:02:51 08/10/19 25 08/07/2024 XR, lumba r spine No observ ation record ed. felicitas [facility] [address] [place], [address], 08/09/2024 10:21:45 Result Notes None recorded. Problems Name Problem SNOMED Code Status Onset Date Resolution Date Notes Provider Name and Address Organization Details Recorded Time Morbid obesity 981735120 Active Not Available [facility] 3 18:14:09 Epilepsy 42018454 Completed 12/04/2017 Frances Ayala . [address] [place] [address], [phone] , [facility] 2 15:22:59 Amputate d toe 529069854 Active Not Available [facility] 3 18:14:09 Heart failure 18544167 Active Not Available [facility] 3 18:14:10 Single major depressi ve episode Completed 07/23/2014 Nam Gordon PA-C [address] [place] [address], [phone] , [facility] 5 12:22:01 Constipa tion 95023428 Completed 06/12/2017 Nam Gordon PA-C [address] [place] [address], [phone] , [facility] 8 11:28:14 Pulp and periapic al tissue disease [id number] Completed 11/16/2015 Nam Gordon PA-C [address] [place] [address], [phone] , [facility] 6 14:05:23 Anemia [id number] Completed 06/12/2017 Nam Gordon PA-C [address] [place] [address], [phone] , [facility] 8 11:29:28 Disorder of brain 35358219 Completed 06/12/2017 Nam Gordon PA-C [address] [place] [address], [phone] , [facility] 8 11:29:59 Major depressi ve disorder 520624884 Active 2015 F32.9 = no AUSTIN Score. Please code severity or remissio n level for a AUSTIN Score. Not Available [facility] 3 18:14:09 Benign essentia l hyperten cal 2171339 Active 2016 Not Available [facility] 3 18:14:09 Giant cell arteriti s Completed 201606/12/2017 Nam Gordon PA-C [address] [place] [address], [phone] , [facility] 8 11:10:07 Giant cell arteriti s Active 2017 presumpt ively tx, 06/08 though unclear if this is the true dx. May be migraine s instead. Not Available [facility] 3 18:14:09 Chronic kidney disease stage 3 [id number] Active 2017 was followed by Karli. 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 Not Available [facility] 3 18:14:09 Rectal pain 51008254 Active 2019 Not Available [facility] 3 18:14:10 Complex regional pain syndrome 371734581 Active 2019 Not Available [facility] 3 18:14:09 Lumbar spondylo sis 864908667 Active 2019 Not Available [facility] 3 18:14:09 Rheumato id arthriti s 04226573 Active 2019 Not Available [facility] 3 18:14:09 Osteopor osis 44510906 Active 2020 Not Available [facility] 3 18:14:09 Cyst of kidney 885998431 Active 2021 Not Available [facility] 3 18:14:10 Chronic kidney disease stage 3A 248208535 Active 2021 Not Available [facility] 3 18:14:10 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 68952438 Active 2014 Not Available [facility] 3 18:14:09 Hyperten sive disorder 99891320 Active Not Available [facility] 3 18:14:09 Low back pain 386214904 Active Not Available [facility] 3 18:14:09 Seizure 86289733 Active Not Available [facility] 3 18:14:10 Ulnar deviatio n of hand 082365902 Active 2022 Tiffanie Starks NP [address] [place] [address], [phone] , [facility] 3 13:37:24 Mixed hyperlip idemia 550142885 Active Not Available [facility] 3 18:14:09 Spinal cord disease 67928313 Active 2002 Not Available [facility] 3 18:14:09 Bunion 617742580 Completed 200112/03/2013 Lauren Torres RN [facility], [facility] 4 06:29:31 Anal pain 46769140 Completed 200307/23/2014 Nam Gordon PA-C [address] [place] [address], [phone] , [facility] 5 12:22:01 Gastroes ophageal reflux disease 677077588 Active 2001 Not Available [facility] 3 18:14:09 Essentia l hyperten cal 61454873 Completed 200306/06/2016 Nam Gordon PA-C [address] [place] [address], [phone] , [facility] 7 13:57:15 Nausea and vomiting 20396621 Completed 200604/10/2013 Not Available [facility] 3 02:03:05 Urinary tract infectio us disease 56196267 Completed 200304/06/2009 Not Available [facility] 3 03:10:20 Acute cystitis 60752555 Completed 200404/10/2013 Not Available [facility] 3 02:02:32 Open angle with borderli ne findings Completed 200207/23/2014 Nam Gordon PA-C [address] [place] [address], [phone] , [facility] 5 12:22:01 Allergic rhinitis 84830388 Completed 200004/06/2009 Not Available [facility] 3 03:10:20 Other Completed 04/10/2013 Not Available [facility] 3 02:04:01 Hammer toe 687596013 Completed 200112/03/2013 Lauren Torres RN null, [facility] 4 06:29:31 Neurogen ic urinary bladder 160457511 Active 2000 Not Available [facility] 3 18:14:09 Disorder of trunk 052153870 Completed 200004/10/2013 Not Available [facility] 3 02:03:41 Spinal cord injury without spinal bone injury 46616003 Completed 200107/23/2014 Nam Gordon PA-C [address] [place] [address], [phone] , [facility] 5 12:22:01 Metaboli c disease 27219854 Completed 07/23/2014 Nam Gordon PA-C [address] [place] [address], [phone] , [facility] 5 12:22:01 Degenera tion of interver tebral disc 50680940 Completed 200312/03/2013 HALEIGH Cagle, [facility] 4 06:29:31 Major depressi on, melancho lic type 524600143 Completed 11/21/2016 Nam Gordon PA-C [address] [place] [address], [phone] , [facility] 7 11:30:08 Cauda equina syndrome with neurogen ic urinary bladder 94610032 Completed 200207/23/2014 Nam Gordon PA-C [address] [place] [address], [phone] , [facility] 5 12:22:01 Posterio r subcapsu lar polar senile cataract 7820897 Completed 200207/23/2014 Nam Gordon PA-C [address] [place] [address], [phone] , [facility] 5 12:22:01 Joint pain 04813518 Completed 200612/03/2013 Lauren Torres RN null, [facility] 4 06:29:31 Complex regional pain syndrome , type I Completed 200607/23/2014 Nam Gordon PA-C [address] [place] [address], [phone] , [facility] 5 12:22:01 Hyperosm olality and or hypernat remia 642402837 Completed 200807/23/2014 Nam Gordon PA-C [address] [place] [address], [address] , [facility] 5 12:22:01 Seborrhe ic dermatit is 83182250 Completed 200612/03/2013 Lauren Torres RN null, [facility] 4 06:29:31 Urge incontin ence of urine 64768951 Active 2004 Not Available [facility] 3 18:14:10 Contact dermatit is 77171285 Completed 04/10/2013 Not Available [facility] 3 02:02:37 Lumbosac ral radiculo darien 3963274 Completed 200307/23/2014 Nam Gordon PA-C [address] [place] [address], [address] , [facility] 5 12:22:01 Swelling of limb 47960978 Completed 200404/10/2013 Not Available [facility] 3 02:03:51 Nonvenom ous insect bite of multiple sites with infectio n 195380080 Completed 200004/06/2009 Not Available [facility] 3 03:10:20 Vitamin D deficien cy 69172029 Completed 07/23/2014 Nam Gordon PA-C [address] [place] [address], [address] , [facility] 5 12:22:01 Hypo-osm olality and or hyponatr emia 809571974 Completed 07/23/2014 Nam Gordon PA-C [address] [place] [address], [phone] , [facility] 5 12:22:01 Disorder of lumbar disc 097674326 Completed 200207/23/2014 Nam Gordon PA-C [address] [place] [address], [address] , [facility] 5 12:22:01 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, implant AND/OR graft 87343839 Completed 200007/23/2014 Nam Gordon PA-C [address] [place] [address], [address] , [facility] 5 12:22:01 Medial epicondy litis 62780761 Completed 200204/10/2013 Not Available [facility] 3 02:04:00 Acute sinusiti s 68868896 Completed 199904/06/2009 Not Available [facility] 3 03:10:20 Edema of extremit y 082312573 Completed 200004/06/2009 Not Available [facility] 3 03:10:20 On examinat ion - a rash Completed 200604/10/2013 Not Available [facility] 3 02:00:47 Idiopath ic peripher al neuropat hy 83146637 Completed 200107/23/2014 Nam Gordon PA-C [address] [place] [address], [address] , [facility] 5 12:22:01 Disorder of endocrin e ovary 91539082 Completed 200807/23/2014 Nam Gordon PA-C [address] [place] [address], [address] , [facility] 5 12:22:01 Chronic pain 40796103 Active Not Available [facility] 3 18:14:10 Dysuria 35206110 Completed 200304/06/2009 Not Available [facility] 3 03:10:20 Degenera tion of interver tebral disc 61064939 Completed 200107/23/2014 Nam Gordon PA-C [address] [place] [address], [address] , [facility] 5 12:22:01 Low back pain 025847246 Completed 200104/06/2009 Not Available [facility] 3 03:10:20 Abrasion and/or friction burn of multiple sites 152700515 Completed 200104/10/2013 Not Available [facility] 3 02:04:08 Mononeur itis 31025144 Completed 200107/23/2014 Nam Gordon PA-C [address] [place] [address], [address] , [facility] 5 12:22:01 Disorder of lower limb 479972537 Completed 200004/06/2009 Not Available [facility] 3 03:10:20 Pain in limb 62250571 Completed 200504/10/2013 Not Available [facility] 3 02:00:54 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 24424940 Completed 200607/23/2014 Nam Gordon PA-C [address] [place] [address], [address] , [facility] 5 12:22:01 Menopaus al and postmeno pausal disorder s 920085313 Completed 199904/06/2009 Not Available [facility] 3 03:10:20 Degenera tive joint disease of hand 42768912 Completed 200607/23/2014 Nam Gordon PA-C [address] [place] [address], [phone] , [facility] 5 12:22:01 Cataract 393599467 Completed 200212/03/2013 Lauren Torres RN [facility], [facility] 4 06:29:31 Problem Notes None recorded. Procedures Surgical History Date Name Laterality Status Provider Name and Address Organization Details Recorded Time 08/13/19 25 COPD Screening Questions completed Efrem Bailey MA [facility] 08/12/2024 15:14:15 12/28/19 24 Medicare Wellness Visit completed Grace Rodgers [facility] 12/28/2023 08:46:43 12/28/19 24 COPD Screening Questions completed Nelly Maza [facility] 12/28/2023 10:04:58 12/28/19 24 Asthma Control Test (12 + years old) completed Nelly Maza Kell [facility] 12/28/2023 10:06:59 08/22/19 24 COPD Screening Questions completed Nelly Maza [facility] 08/22/2023 13:49:29 04/26/20 23 COPD Screening Questions completed Nelly Maza Kell [facility] 04/26/2023 10:46:18 11/10/19 23 COPD Screening Questions completed Kody Huffman MA [facility] 11/09/2022 13:51:10 08/05/19 23 Medicare Wellness Visit completed Karlene Christian MA [facility] 08/04/2022 13:43:00 08/05/19 23 COPD Screening Questions completed Karlene Christian MA [facility] 08/04/2022 14:03:21 03/23/20 20 Post hospital/SNF follow-up/Transi tional Care completed Ana Sapp PA-C [address] [place] [address], [phone], [facility] 03/26/2020 13:47:48 03/23/20 20 Telephonic Visit completed Nell Quispe MA [facility] 03/23/2020 09:05:12 06/18/19 19 Medicare Wellness Visit completed Lauren Govea MA [facility] 06/18/2018 09:43:58 09/20/19 18 Post hospital/SNF follow-up/Transi tional Care completed Nell Quispe MA [facility] 09/19/2017 10:31:18 06/12/19 18 Medicare Wellness Visit completed Nell Quispe MA [facility] 06/12/2017 11:10:52 06/12/19 18 Medicare Risk for Falls Screen completed Nell Quispe MA [facility] 06/12/2017 11:21:11 06/06/19 17 Medicare Wellness Visit completed Nell Quispe MA [facility] 06/06/2016 13:42:43 07/20/19 16 CCM - Medication Review completed Jacquelyn Ricks RN [facility] 07/20/2015 11:57:19 06/25/19 16 CCM - Coordination of Services completed Jacquelyn Ricks RN [facility] 06/25/2015 15:05:03 06/02/19 16 CCM - Coordination of Services completed Jacquelyn Ricks RN [facility] 06/02/2015 17:06:33 04/29/20 15 CCM - Coordination of Services completed Jacquelyn Ricks RN [facility] 04/29/2015 11:19:43 04/27/20 15 CCM - Coordination of Services completed Jacquelyn Ricks RN [facility] 04/27/2015 16:21:09 02/26/20 15 CCM - Health Assessment and Education completed Jacquelyn Ricks RN [facility] 02/25/2015 16:17:42 02/03/20 15 CCM - Coordination of Services completed Jacquelyn Ricks RN [facility] 02/02/2015 10:41:48 11/12/19 15 CCM - Coordination of Services completed Jacquelyn Ricks RN [facility] 11/11/2014 16:11:30 11/12/19 15 CCM - Medication Review completed Jacquelyn Ricks RN [facility] 11/11/2014 16:11:30 Colonoscopy completed Not Available [facility] 04/07/2011 06:05:52 Other (specify) completed Not Available [facility] 04/07/2011 06:05:52 Appendectomy completed Not Available [facility] 04/07/2011 06:05:52 Imaging Results Imaging Date Name Status LastModified by Organiz ation Details LastModified Time 08/22/2023 MAMMO, screening, tomosynthesis, bilateral completed [id number] [facility] (Imaging) [address], [place], [address], 08/22/2023 16:30:46 12/05/2023 CT, cervical spine, w/ contrast completed [facility] Information not available 12/29/2023 10:52:53 09/19/2023 XR, shoulder, 2 or more view completed [facility] Information not available 12/29/2023 10:52:53 08/07/2024 XR, pelvis completed [address], [address], 08/12/2024 16:02:52 08/07/2024 XR, thoracic spine completed [address], [address], 08/12/2024 16:02:51 08/07/2024 XR, lumbar spine completed [address], [address], 08/09/2024 10:21:45 Procedure Notes None recorded. Medical Equipment None Reported. Allergies Allergen ID Allergen Name Allergen Category Reaction Reaction Severity Criticality Documentation Date Start Date Code Code System Note Provider Name and Address Organization Details Recorded Time adhesive tape environme nt,medica tion Not available Not available Not available 11/21/2016 73890 UNK REBECCA Farfan, [facility] 7 11:04:27 06385 vancomyci n medicatio n Not available Not available Not available 03/03/2010 35084 RxNorm Not Available [facility] 1 06:05:41 9857 nortripty line medicatio n Not available Not available Not available 09/17/2008 7531 RxNorm palpa tatio ns Not Available [facility] 1 06:05:20 9858 Levaquin medicatio n Not available Not available Not available 09/17/2008 50003 2 RxNorm nause a, vomit ting Not Available [facility] 1 06:05:20 Medications Name Sig Start Date Stop Date Status Note LastModified by Organization Details LastModified Time first-sc[facility] thwash blm suspensio n SWISH AND SPIT 10 ML 4 (FOUR) TIMES A DAY NEEDED. active Not Available Not Available No t Available [facility] blm samantha 07/09 completed Not Available Not Available Not Available Prescript ion - Prior Authoriza tion Request active Not Available Not Available Not Available Miralax 17 gram oral powder packet Take 1 packet twice a day by oral route. active Not Available Not Available No t Available amoxicill in 500 mg capsule Take 1 capsule every 8 hours by oral route for 5 days. 04/26 completed Not Available Not Available Not Available furosemid e 40 mg tablet TAKE 1/2 TO 1 TABLET BY MOUTH DAILY. .25 mg some day noted by pt. 4-2-24 active Not Available Not Available No t Available clotrimaz ole 10 mg renetta USE 1 RENETTA DISSOLVE D IN THE MOUTH FIVE TIMES DAILY active Not Available Not Available No t Available desonide 0.05 % topical cream APPLY SPARINGL Y AND RUB GENTLY INTO THE AFFECTED AREA TWICE A DAY active Not Available Not Available No t Available oxcarbaze pine 150 mg tablet TAKE 2 TABLETS BY MOUTH TWICE A DAY 06/12 completed Not Available Not Available Not Available nystatin 100,000 unit/mL oral suspensio n Take 5 mL 4 TIMES A DAY swish and swallow. 11/09 completed Not Available Not Available Not Available prednison e 10 mg tablet 11/10/20 taking 5mg QD active Not Available Not Available No t Available nitrofura ntoin macrocrys mckinley 50 mg capsule TAKE ONE CAPSULE EVERY DAY active Not Available Not Available No t Available ketoconaz ole 2 % shampoo APPLY TOPICALL Y DIRECTED active Not Available Not Available No t Available sulfasala zine 500 mg tablet TAKE 2 TABLETS BY MOUTH TWICE A DAY active Not Available Not Available No t Available methotrex ate sodium 10 mg tablet Take 1 tablet every week by oral route. 12/08 completed Not Available Not Available Not Available tizanidin e 2 mg tablet active Not Available Not Available Not Available cefpodoxi me 200 mg tablet Take 1 tablet every day by oral route for 7 days. 03/23 completed Not Available Not Available Not Available tizanidin e 4 mg tablet TAKE 1 TO 2 TABLETS BY MOUTH 3 TIMES A DAY NEEDED FOR SPASM active Not Available Not Available No t Available atenolol 100 mg tablet TAKE 1 TABLET BY MOUTH EVERY DAY 09/19 completed patient state that she is currentl y taking 50 mg daily. will need a new RX 02/09/17 DR Not Available Not Available Not Available valacyclo vir 1 gram tablet Take 1 tablet 3 times a day by oral route for 7 days. 02/09 completed Not Available Not Available Not Available senna 8.6 mg tablet Take 1 tablet every day by oral route. active Not Available Not Available No t Available ondansetr on HCl 8 mg tablet 02/13 completed Take 1.00 tabs 4 times a day Not Available Not Available Not Available methadone 10 mg tablet TAKE 1 TABLET BY MOUTH 3 TIMES A DAY FOR PAIN FOR 2 WEEKS THEN TAKE 1 TAB TWICE A DAY FOR 2 WEEKS active Patient is getting these medicati on from [facility] Not Available Not Available Not Available fluconazo le 200 mg tablet TAKE TWO TABS AND REPEAT IN ONE WEEK 03/22 completed Not Available Not Available Not Available meloxicam 15 mg tablet Take 1/2 tablet(s ) every day by oral route. 11/21 completed Pt Not Available Not Available Not Available FreeStyle Lancets 28 gauge USE TO TEST BLOOD SUGAR ONCE DAILY active Not Available Not Available No t Available ondansetr on HCl 4 mg tablet 12/27 completed Not Available Not Available Not Available prednison e 20 mg tablet TAKE 3 TABS BY MOUTH FOR 2 DAYS THEN 2 TABS FOR 2 DAYS THEN 1 TAB FOR 2 DAYS THEN 1/2 TAB FOR 2 DAYS 09/19 completed Not Available Not Available Not Available alendrona te 70 mg tablet PLEASE SEE ATTACHED FOR DETAILED DIRECTIO NS 06/12 completed L femur fracture Not Available Not Available Not Available simvastat in 10 mg tablet TAKE 1 TABLET BY MOUTH EVERYDAY AT BEDTIME active Not Available Not Available No t Available prednison e 5 mg tablet TAKE 1 TABLET (5 MG TOTAL) BY MOUTH DAILY. active 4-2-24 Per Rheum 10mg [id number] - then 7.5mg QD Not Available Not Available Not Available atenolol 25 mg tablet TAKE 1 TABLET BY MOUTH EVERY DAY active Not Available Not Available No t Available nystatin 500,000 unit tablet Take 1 tablet 3 times a day by oral route for 10 days. 2013 active Not Available Not Available Not Avai lable tiagabine 4 mg tablet TAKE 1 TABLETS EVERY MORNING AND 1 TABLETS AT BEDTIME 10/14 completed Not Available Not Available Not Available leflunomi de 10 mg tablet TAKE 1 TABLET BY MOUTH EVERY DAY 07/18 completed Not Available Not Available Not Available lidocaine HCl 2 % mucosal jelly APPLY TO AFFECTED AREA EVERY 4 HOURS active Not Available Not Available No t Available ciproflox acin 250 mg tablet Take 1 tablet every 12 hours by oral route for 5 days. 04/13 completed Not Available Not Available Not Available Vitamin C 500 mg chewable tablet active Not Available Not Available Not Available Detrol LA 4 mg capsule,e xtended release 02/13 completed Take 1.00 caps every day before noon Not Available Not Available Not Available prochlorp erazine maleate 10 mg tablet 11/21 completed Not Available Not Available Not Available sulfameth oxazole 800 mg-trimet hoprim 160 mg tablet TAKE 1 TABLET BY MOUTH EVERY 12 HOURS FOR UTI FOR 3 DAYS active Not Available Not Available No t Available omeprazol e 40 mg capsule,d elayed release Take 1 capsule every day by oral route. active Not Available Not Available No t Available aspirin 81 mg tablet,de layed release Take 1 tablet every day by oral route. 2012 active started at [facility] Not Available Not Available Not Available triamcino lone acetonide 0.1 % topical cream APPLY TO AFFECTED AREAS OF RASH TWICE DAILY FOR TWO WEEKS. DO NOT USE ON FACE active Not Available Not Available No t Available leucovori n calcium 15 mg tablet active Not Available Not Available Not Available oxycodone -acetamin ophen 5 mg-325 mg tablet TAKE 1 TABLET TWICE A DAY BY ORAL ROUTE NEEDED FOR 28 DAYS (12/03/23 ) 12/18 completed Not Available Not Available Not Available hydromorp ora 2 mg tablet TAKE 1 TABLET BY MOUTH THREE A DAY NEEDED FOR BREAK THROUGH PAIN 2024 active CSRP; Fill Date 09/10/24 pa approved 02/06/25, Not Available Not Available Not Available Vitamin D3 10 mcg (400 unit) tablet 03/03 completed 1 daily Not Available Not Available Not Available magnesium oxide 400 mg (241.3 mg magnesium ) tablet TAKE 1 TABLET BY MOUTH EVERY DAY 10/04 completed Not Available Not Available Not Available modafinil 200 mg tablet TAKE 1 TABLET BY MOUTH EVERY DAY for 90 days active pa approved thru 04/21/25 Not Available Not Available Not Available lorazepam 0.5 mg tablet 06/18 completed Not Available Not Available Not Available Dolobid 500 mg tablet 02/13 completed Take 1.00 tabs every day Not Available Not Available Not Available methotrex ate sodium 2.5 mg tablet TAKE 8 TABLETS BY MOUTH EVERY 7 DAYS. 12/16 completed Not Available Not Available Not Available prednison e 1 mg tablet TAKE 3 TABLETS BY MOUTH EVERY MORNING TAKE 2 TABLETS IN THE AFTERNOO N 12/23 completed note taking 1 mg tabs per rheum note 12/23/21 Not Available Not Available Not Available Josefina-Hex 4 % topical liquid APPLY TO BODY WHEN SHOWERIN G, MAY LEAVE ON active Not Available Not Available No t Available baclofen 10 mg tablet active 1-2 prn Not Available Not Available Not Available benzonata te 100 mg capsule Take 1 capsule twice a day by oral route. active Not Available Not Available No t Available prednison e 2.5 mg tablet PLEASE SEE ATTACHED FOR DETAILED DIRECTIO NS active Not Available Not Available No t Available cephalexi n 500 mg capsule TAKE 1 CAPSULE BY MOUTH EVERY 12 HOURS FOR 5 DAYS active Not Available Not Available No t Available pantopraz ole 40 mg tablet,de layed release take 1 tablet by mouth daily 06/12 completed Not Available Not Available Not Available nystatin 100,000 unit/gram topical cream APPLY TOPICALL Y 2 (TWO) TIMES A DAY to affected area active Not Available Not Available No t Available lidocaine 5 % topical patch APPLY 1 PATCH TO AFFECTED AREA ONCE A DAY (12 HOURS ON 12 HOURS OFF) active Not Available Not Available No t Available mupirocin calcium 2 % topical cream APPLY A SMALL AMOUNT TO THE AFFECTED AREA BY TOPICAL ROUTE 2 TIMES PER DAY FOR 10 DAYS 2024 active Not Available Not Available Not Avai lable docusate sodium 100 mg capsule TAKE 1 CAPSULE BY MOUTH TWICE A DAY active Not Available Not Available No t Available gabapenti n 300 mg capsule TAKE ONE CAPSULE IN THE MORNING TAKE ONE CAPSULE MIDDAY AND TAKE 2 CAPSULES AT BEDTIME active Not Available Not Available No t Available cephalexi n 500 mg tablet Take 1 tablet every 8 hours by oral route for 5 days. 2024 active Not Available Not Available Not Avai lable ketoprofe n (bulk) powder 02/13 completed Take 1.00 applics as directed Not Available Not Available Not Available folic acid 1 mg tablet TAKE 1 TABLET BY MOUTH EVERY DAY active Not Available Not Available No t Available hydrocort isone 2.5 % topical cream APPLY TO AFFECTED AREA ONCE DAIY DIRECTED active Not Available Not Available No t Available amoxicill in 250 mg capsule TAKE ONE CAPSULE BY MOUTH 3 TIMES A DAY UNTIL FINISHED active Not Available Not Available No t Available Culturell e 10 billion cell capsule Take 1 capsule twice a day by oral route for 7 days. 2015 active Not Available Not Available Not Avai lable bisacodyl 5 mg tablet,de layed release TAKE 4 TABLETS WITH 8OZ OF WATER DAY BEFORE PROCEDUR E 02/09 completed Not Available Not Available Not Available hydrochlo rothiazid e 25 mg tablet Take 1 tablet every day by oral route for 30 days. 02/13 completed Not Available Not Available Not Available mupirocin 2 % topical ointment APPLY A SMALL AMOUNT TO THE AFFECTED AREA BY TOPICAL ROUTE 2 TIMES PER DAY FOR 10 DAYS active Not Available Not Available No t Available Xalatan 0.005 % eye drops 09/17 completed 1 drop in each eye hs Not Available Not Available Not Available diclofena c sodium 50 mg tablet,de layed release 2006 active Take 1.00 tabs twice daily as needed Not Available Not Available Not Available furosemid e 20 mg tablet active Not Available Not Available Not Available nystatin 100,000 unit/gram topical powder APPLY TO AFFECTED AREA TWICE A DAY active Not Available Not Available No t Available fluocinol one 0.01 % topical solution APPLY BY AFFECTED AREA TO SCALP active Not Available Not Available No t Available lidocaine 3 %-hydroco rtisone 0.5 % topical cream active Not Available Not Available Not Available hydroxych loroquine 200 mg tablet TAKE 2 TABLETS BY MOUTH EVERY DAY active Not Available Not Available No t Available methylpre dnisolone 4 mg tablets in a dose pack active Not Available Not Available Not Available albuterol sulfate HFA 90 mcg/actua tion aerosol inhaler INHALE 1 PUFF BY MOUTH EVERY 6 HOURS active Not Available Not Available No t Available ketoconaz ole 2 % topical cream APPLY TO AFFECTED AREA TWICE A DAY active Not Available Not Available No t Available hydromorp ora 4 mg tablet TAKE 1/2 TABLET (2 MG) BY MOUTH) TWICE A DAY FOR BREAKTHR OUGH PAIN. 08/30 completed Only use this order if 2mg tablet are out of stock. Not Available Not Available Not Available methadone 5 mg tablet TAKE 1 TABLET TWICE A DAY 01/08 completed Not Available Not Available Not Available topiramat e 100 mg tablet TAKE 1 TABLET BY MOUTH TWICE A DAY AND TAKE 2 TABLETS AT BEDTIME active Not Available Not Available No t Available betametha sone dipropion ate 0.05 % lotion PLEASE SEE ATTACHED FOR DETAILED DIRECTIO NS active Not Available Not Available No t Available sertralin e 50 mg tablet TAKE 1 TABLET BY MOUTH EVERY DAY 2013 active Not Available Not Available Not Avai lable lisinopri l 2.5 mg tablet TAKE 1 TABLET BY MOUTH DAILY. 09/14 completed Dc'd at [facility] Not Available Not Available Not Available atenolol 50 mg tablet TAKE 1 TABLET BY MOUTH EVERY DAY 10/04 completed Not Available Not Available Not Available metoclopr amide 10 mg tablet TAKE 1 TABLET TWICE A DAY BY ORAL ROUTE NEEDED. active Not Available Not Available No t Available amoxicill in 875 mg-potass ium clavulana te 125 mg tablet TAKE 1 TABLET BY MOUTH TWICE A DAY FOR 10 DAYS active Not Available Not Available No t Available oxycodone 5 mg tablet 1 tablet PO every 4-6 hours for acute pain 10/14 completed Not Available Not Available Not Available enoxapari n 40 mg/0.4 mL subcutane ous syringe INJECT 0.4 ML SUBCUTAN EOUSLY DAILY X 8 DAYS 10/14 completed Not Available Not Available Not Available lidocaine 3 %-hydroco rtisone 0.5 % rectal cream Apply twice daily to rectal area as needed. Do not use for more than 1 week at a time. 2023 active Not Available Not Available Not Avai lable Systane (propylen e glycol) 0.4 %-0.3 % eye drops 1 drop in each eye twice a day. active Not Available Not Available No t Available clobetaso l 0.05 % shampoo APPLY TO AFFECTED AREA EVERY DAY active Not Available Not Available No t Available nitrofura ntoin monohydra te/macroc rystals 100 mg capsule TAKE 1 CAPSULE( S) EVERY 12 HOURS BY MOUTH DIRECTED FOR 10 DAYS. 06/18 completed Not Available Not Available Not Available duloxetin e 30 mg capsule,d elayed release TAKE 1 CAPSULE BY MOUTH TWICE A DAY NEEDED FOR PAIN active Not Available Not Available No t Available lactulose 10 gram/15 mL oral solution TAKE 15 ML BY MOUTH ONCE DAILY DIRECTED active Not Available Not Available No t Available Xylocaine xylocain e jelly 10/14 completed Not Available Not Available Not Available aspirin 81 MG 1 DAILY active Not Available Not Available No t Available clonidine 210 mcg/ml by pump active Dr. Kumar manages Not Available Not Available Not Available hydromorp ora 2mg/ml by pump 07/[address] Kumar manages Not Available Not Available Not Available ketamine 50 [id number] active Not Available Not Available No t Available bupivacai ne HCl 10/14 completed B1 1% cream Dr Koenig Not Available Not Available Not Available sodium chloride .9% Implant pump active Not Available Not Available No t Available Centrum 08/02 completed 1 daily Not Available Not Available Not Available Enbrel 50mg subq weekly 04/20 completed per rheum note 12/23/21 Not Available Not Available Not Available Gaviscon active prn Not Available Not Avai lable Not Available Senna Laxative 2 TABLETS NEEDED active Not Available Not Available No t Available bupivacai ne (PF) 30 mg/ml by pump active Dr. Kumar manages Not Available Not Available Not Available Amitiza 24 mcg capsule TAKE ONE CAPSULE BY MOUTH TWICE A DAY NEEDED active Not Available Not Available No t Available levetirac etam 1,000 mg tablet TAKE 1 TABLET BY MOUTH TWICE DAILY 05/02 completed pt states stopped a long time ago Not Available Not Available Not Available Opana 10 mg tablet 02/13 completed Take 2.00 tabs as needed Not Available Not Available Not Available Enbrel SureClick 50 mg/mL (1 mL) subcutane ous pen injector 04/20 completed Not Available Not Available Not Available FreeStyle Lite Strips USE TO TEST BLOOD SUGAR ONCE DAILY active Not Available Not Available No t Available Azmacort 75 mcg/actua tion aerosol inhaler 09/17 completed Take 4.00 puffs every other day Not Available Not Available Not Available FreeStyle [place] Lite kit USE DIRECTED active Not Available Not Available No t Available pantopraz ole DR 40 mg granules delayed-r elease for susp in packet active 1 daily Not Available Not Available No t Available Vitamin D3 50 mcg (2,000 unit) tablet Take 1 tablet every day by oral route. active Not Available Not Available No t Available Savella 50 mg tablet active Takes BID Not Available Not Available Not Available GaviLyte- G 236 gram-22.7 4 gram-6.74 gram-5.86 gram oral solution 11/21 completed Not Available Not Available Not Available Vitamin D3 25 mcg (1,000 unit) chewable tablet 06/12 completed 2 daily Not Available Not Available Not Available diclofena c 1.5 % topical drops APPLY 30 DROPS TO FOOT THREE TIMES A DAY 10/04 completed Not Available Not Available Not Available Prolia 60 mg/mL subcutane ous syringe Inject 1 mL by subcutan eous route. active Dr. Maribeth albert (rheum) Not Available Not Available Not Available lactulose 10 gram/15 mL (15 mL) oral solution Take 15 ML EVERY DAY by oral route. one to three times daily as needed for constipa tion 11/15 completed LAST OV 05/20/15 Not Available Not Available Not Available Eliquis 5 mg tablet TAKE 1 TABLET BY MOUTH TWICE A DAY active Not Available Not Available No t Available Biotene Dry Mouth Oral Rinse once daily active Not Available Not Available No t Available Orencia ClickJect 125 mg/mL subcutane ous auto-inje ctor 06/24 completed Not Available Not Available Not Available Eliquis DVT-PE Treatment 30-Day Starter 5 mg (74 tablets) in dose pack 10/14 completed Not Available Not Available Not Available Paxlovid 150 mg-100 mg tablets in a dose pack (Renal Dose) TAKE 2 TABLETS TWICE A DAY BY ORAL ROUTE FOR 5 DAYS. 05/01 completed Not Available Not Available Not Available Vitals Date Recorded Body height Body mass index (BMI) Body weight Oxygen saturation Oxygen saturation in Arterial blood by Pulse oximetry Heart rate Systolic blood pressure Diastolic blood pressure Provider Name and Address Organization Details Last Updated DateTime 4 149.86 cm 34.5 kg/m2 58293.3 g 95 % 95 % 101 /min 132 mm[Hg] 71 mm[Hg] Nelly Maza [facility] 4 13:48:02 Date Recorded Body height Oxygen saturation Oxygen saturation in Arterial blood by Pulse oximetry Heart rate Body mass index (BMI) Body weight Systolic blood pressure Diastolic blood pressure Provider Name and Address Organization Details Last Updated DateTime 4 149.86 cm 95 % 95 % 98 /min 34.5 kg/m2 18237.3 g 106 mm[Hg] 72 mm[Hg] Nelly Maza [facility] 4 10:09:52 Date Recorded Body height Body mass index (BMI) Body weight Provider Name and Address Organization Details Last Updated DateTime 07/09/2024 149.86 cm 34.3 kg/m2 68234.7 g Shaquille Chaves [facility] 07/09/2024 10:40:24 Date Recorded Body height Heart rate Oxygen saturation Oxygen saturation in Arterial blood by Pulse oximetry Systolic blood pressure Diastolic blood pressure Provider Name and Address Organization Details Last Updated DateTime 5 149.86 cm 95 /min 98 % 98 % 100 mm[Hg] 70 mm[Hg] Ilda Hairston [facility] 5 16:47:34 Date Recorded Body height Body mass index (BMI) Body weight Heart rate Systolic blood pressure Diastolic blood pressure Provider Name and Address Organization Details Last Updated DateTime 5 149.86 cm 36 kg/m2 61393.4 4 g 59 /min 170 mm[Hg] 80 mm[Hg] Efrem skelton MA [facility] 5 15:09:49 Social History Question Answer Notes LastModified by Organizat ion Details LastModified Time Tobacco Smoking Status Former Smoker 07/19/24 AW 08/12/24 [facility] 15:12:11 Do You Have An Advance Directive? Yes Will Bring A Copy In 04/06/2009 [email or web address] Information not available 04/06/2009 What Is Your Level Of Alcohol Consumption? None Information not available 07/09/2024 Do You Wear A Helmet When Biking? No Information not available 09/24/2014 What Is Your Level Of Caffeine Consumption? None Information not available 2015 How Much Tobacco Do You Chew? None Information not available 11/11/2014 What Type Of Diet Are You Following? REGULAR Information not available 2015 Which Illicit Or Recreational Drugs Have You Used? None Information not available 07/09/2024 Do You Or Have You Ever Used E-cigarettes Or Vape? 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 16+yearssince [email or web address] Information not available 06/06/2016 How Many Days In The Past Year Have You Had A Heavy Drinking Consumption (4+ Female, 5+ Male)? 0 [email or web address] Information not available 08/12/2013 Are There Any Guns Present In Your Home? No Information not available 09/24/2014 Live Alone Or With Others? Alone Lives In Garage Made Into Apartment In Sister's Home [email or web address] Information not available 04/06/2009 Patient Has Health Care Proxy Signed And In Chart No [email or web address] Information not available 02/28/2018 CCM Consent Discussion 04/26/2023 [email or web address] Information not available 05/19/2023 Marital Status Single Information not available 04/07/2011 Mosquito Repellent Used Routinely No Information not available 02/03/2015 What Was The Date Of Your Most Recent Tobacco Screening? 08/12/2024 08/12/24 LUIS [email or web address] Information not available 08/12/2024 How Many Children Do You Have? 0 Information not available 04/07/2011 What Is Your Current Pack Years? 20-29packyear s Information not available 06/06/2016 Seat Belts Used Routinely Yes Information not available 09/24/2014 Are You Sexually Active? No Information not available 06/06/2016 Smoke Alarm In Home Yes Information not available 09/24/2014 At What Age Did You Start Smoking Tobacco? 18 Information not available 07/09/2024 Do You Or Have You Ever Used Smokeless Tobacco? Never Used Smokeless Tobacco [email or web address] Information not available 03/22/2022 How Much Tobacco Do You Smoke? No [email or web address] Information not available 08/19/2020 General Stress Level High Due To Pain In Lower Half Of Body [email or web address] Information not available 04/06/2009 Do You Use Any Illicit Or Recreational Drugs? No Information not available 07/09/2024 Do You Use Sunscreen Routinely? No Information not available 02/03/2015 How Many Years Have You Smoked Tobacco? 30 [email or web address] Information not available 12/28/2023 Sex: Female Functional Status None recorded. Mental Status None recorded. Family History Nothing Reported Notes:MOM: d30s: liver dz ?c ause DAD: d30s: kidney dz after trauma to 1 kidney SIS: 1: CVA/kidney problems BRO: 0 KIDS: 0 Medical History No medical history recorded. Gynecological HistoryNo gynecological history recorded. Obstetrics History GPAL:G 0 P 0 0 0 0 Immunizations Vaccine Type Date Status Note Provider Rc shankar and Address Organization Details Recorded Time influenza, unspecified formulation 1 completed Елена Gladu, [employer] null, [facility] 02/27/2023 10:22:44 influenza, unspecified formulation 4 completed Елена Gladu, [employer] null, [facility] 02/27/2023 10:22:44 influenza, unspecified formulation 3 completed Елена Gladu, [employer] [facility] 10:22:44 Influenza, split virus, trivalent, preservative 9 completed Not Available [facility] 06/08/2019 02:25:07 Influenza, split virus, trivalent, preservative 1 completed Not Available [facility] 06/08/2019 02:38:46 Td(adult) unspecified formulation 6 completed Елена Gladu, [employer] [facility] 02/27/2023 10:22:45 influenza, unspecified formulation 6 completed Елена Gladu, [employer] null, [facility] 02/27/2023 10:22:45 influenza, unspecified formulation 7 completed Елена Gladu, [employer] null, [facility] 02/27/2023 10:22:44 influenza, unspecified formulation 8 completed Елена Gladu, [employer] null, [facility] 02/27/2023 10:22:45 Influenza, high-dose, trivalent, PF 4 completed Not Available [facility] 06/08/2019 02:19:19 Pneumococcal conjugate PCV 13 5 completed Not Available [facility] 06/08/2019 02:19:26 Influenza, split virus, trivalent, preservative 2 completed Елена Gladu, [employer] null, [facility] 02/27/2023 10:22:45 Td (adult), 5 Lf tetanus toxoid, preservative free, adsorbed 6 completed Not Available [facility] 06/08/2019 02:37:19 Influenza, high-dose, trivalent, PF 6 completed Not Available [facility] 06/08/2019 02:33:42 Influenza, high-dose, trivalent, PF 7 completed Not Available [facility] 06/08/2019 02:33:35 Influenza, high-dose, trivalent, PF 9 completed Not Available [facility] 06/08/2019 02:33:02 Influenza, high-dose, trivalent, PF 8 completed Елена Gladu, [employer] null, [facility] 02/27/2023 10:22:45 COVID-19, mRNA, LNP-S, PF, 100 mcg/0.5mL dose or 50 mcg/0.25mL dose 1 completed Tara Jamil MA null, [facility] 07/14/2020 14:19:04 Influenza, high-dose, quadrivalent, PF 0 completed Елена Gladu, [employer] [facility]23 10:22:44 Influenza, high-dose, quadrivalent, PF 2 completed MICHELE HARRELL PA-C [address] [place] [address], [id number] 02/11/2022 08:01:21 Influenza, split virus, trivalent, preservative 0 completed Not Available [facility] 06/08/2019 02:17:47 COVID-19, mRNA, LNP-S, PF, 100 mcg/0.5mL dose or 50 mcg/0.25mL dose 1 completed Елена Gladu, [employer] null, [facility] 02/27/2023 10:22:44 Influenza, split virus, quadrivalent, preservative 1 completed Елена Gladu, [employer] null, [facility] 02/27/2023 10:22:44 zoster recombinant 1 completed Елена Gladu, [employer] null, [facility] 02/27/2023 10:22:44 COVID-19, mRNA, LNP-S, PF, 100 mcg/0.5mL dose or 50 mcg/0.25mL dose 1 completed Елена Gladu, [employer] null, [facility] 02/27/2023 10:22:44 COVID-19, mRNA, LNP-S, PF, 100 mcg/0.5mL dose or 50 mcg/0.25mL dose 2 completed Елена Gladu, [employer] [facility] 02/27/[facility]23 10:22:44 pneumococcal polysaccharide PPV23 3 completed Елена Gladu, [employer] [facility] 02/27/2023 10:22:44 Influenza, split virus, trivalent, preservative 5 completed Елена Gladu, [employer] [facility] 02/27/2023 10:22:45 zoster, unspecified formulation 1 completed Елена Gladu, [employer] [facility] 02/27/2023 10:22:44 COVID-19 mRNA, bivalent, original/Omicron BA.1, Non-US Vaccine (Spikevax Bivalent), Moderna 3 completed Елена Farooqdu, [employer] [facility] 02/27/2023 10:22:44 Influenza, high-dose, quadrivalent, PF 3 completed Елена Gladu, [employer] [facility] 02/27/2023 10:22:44 COVID-19 mRNA, bivalent, original/Omicron BA.1, Non-US Vaccine (Spikevax Bivalent), Moderna 3 completed Celestina Pathak [facility] 03/13/2023 16:40:55 Influenza, adjuvanted, trivalent, PF 4 completed Efrem Bailey [facility] 08/12/2024 14:29:52 influenza, unspecified formulation 0 completed Елена Glaeleno, [employer] [facility] 02/27/2023 10:22:44 Past Encounters Encounter ID Performer Location Encounter Start Date Encounter Closed Date Diagnosis/Indication Diagnosis SNOMED-CT Code Diagnosis ICD10 Code Diagnosis Note [id number] [facility] [place] [address] [place] [address] 05/01/2000 08:10:00 06/11/2008 02:02:29 [id number] [facility] OFFICE [address] [place] [address] 04/03/2000 12:15:00 06/11/2008 02:02:29 [id number] FP, [facility] OFFICE [address] [place] [address] 05/29/2000 15:30:00 06/11/2008 02:02:29 [id number] Radiology , [facility] [address] [place] [address] 05/31/2000 14:30:00 06/11/2008 02:02:29 [id number] FP, [facility] OFFICE [address] [place] [address] 10/20/2000 12:00:00 06/11/2008 02:02:29 [id number] Radiology , [facility] [address] [place] [address] 11/21/2000 11:30:00 06/11/2008 02:02:29 [id number] FP, [facility] OFFICE [address] [place] [address] 03/28/2001 10:15:00 06/11/2008 02:02:29 [id number] FP, [facility] OFFICE [address] [place] [address] 1 03/30/2001 10:00:00 06/11/2008 02:02:29 [id number] FP, [facility], OFFICE [address] [place] [address] 1 04/05/2001 09:00:00 06/11/2008 02:02:29 [id number] FP, [facility], OFFICE [address] [place] [address] 04/17/2001 09:00:00 06/11/2008 02:02:29 [id number] FP, [facility], OFFICE [address] [place] [address] 1 04/30/2001 10:35:00 06/11/2008 02:02:29 [id number] FP, [facility], OFFICE [address] [place] [address] 2001 11:15:00 06/11/2008 02:02:29 [id number] [facility] - [facility] [address] [place] [address] 07/10/2001 11:15:00 06/11/2008 02:02:29 [id number] FP, [facility], OFFICE [address] [place] [address] 07/10/2001 09:45:00 06/11/2008 02:02:29 [id number] [facility] OFFICE [address] [place] [address] 08/17/2001 16:30:00 06/11/2008 02:02:29 [id number] [facility], OFFICE [address] [place] [address] 10/25/2001 09:57:47 06/11/2008 02:02:29 [id number] [facility] OFFICE [address] [place] [address] 12/28/2001 10:30:25 06/11/2008 02:02:29 [id number] LAB - [facility] [address] [place] [address] 04/10/2002 09:37:59 06/11/2008 02:02:29 [id number] [facility] OFFICE [address] [place] [address] 1 04/10/2002 08:54:01 06/11/2008 02:02:29 [id number] LAB - [facility] [address] [place] [address] 06/25/2002 11:02:05 06/11/2008 02:02:29 [id number] [facility] OFFICE [address] [place] [address] 06/25/2002 09:48:04 06/11/2008 02:02:29 [id number] Radiology , [facility] [address] [place] [address] 08/15/2002 10:04:10 06/11/2008 02:02:29 [id number] Eye Care, [facility] [address] [place] [address] 11/12/2002 11:04:11 06/11/2008 02:02:29 [id number] LAB - [facility] [address] [place] [address] 1 02/26/2003 12:20:10 02/26/2003 12:51:35 [id number] Radiology , [facility] [address] [place] [address] 1 02/28/2003 14:11:36 02/28/2003 15:29:50 [id number] [facility], OFFICE [address] [place] [address] 02/26/2003 11:09:41 02/28/2003 18:11:05 [id number] [facility] OFFICE [address] [place] [address] [id number] Eye Care, [facility] [address] [place] [address] 08/08/2003 09:59:31 08/08/2003 10:26:45 [id number] [facility] OFFICE [address] [place] [address] 08/28/2003 11:18:46 08/28/2003 17:35:36 [id number] LAB - [facility] [address] [place] [address] 08/29/2003 07:30:29 08/29/2003 10:04:09 [id number] Radiology , [facility] [address] [place] [address] 08/28/2003 10:34:43 08/28/2003 14:11:17 [id number] Radiology , [facility] [address] [place] [address] 09/01/2003 09:48:12 09/01/2003 11:41:03 [id number] LAB - [facility] [address] [place] [address] 01/08/2004 11:10:17 01/08/2004 11:10:34 [id number] [facility] OFFICE [address] [place] [address] 01/08/2004 10:10:01 01/08/2004 16:24:03 [id number] [facility] OFFICE [address] [place] [address] 03/05/2004 16:18:17 03/09/2004 17:39:47 [id number] [facility], OFFICE [address] [place] [address] 03/24/2004 13:39:00 03/25/2004 10:47:42 [id number] [facility] OFFICE [address] [place] [address] 06/07/2004 11:27:36 06/11/2004 08:29:51 [id number] [facility] OFFICE [address] [place] [address] 09/16/2004 13:05:59 09/16/2004 17:54:12 [id number] LAB - [facility] [address] [place] [address] 1 09/16/2004 14:18:11 09/16/2004 14:18:29 [id number] [facility] OFFICE [address] [place] [address] 02/21/2005 14:09:56 02/22/2005 08:51:53 [id number] LAB - [address] [place] [address] 02/21/2005 15:18:37 02/21/2005 15:19:10 [id number] FP, [facility] [address] [facility] [place] [address] 03/02/2005 00:00:00 06/11/2008 02:02:29 [id number] FP, [facility] [address] [facility] [place] [address] 03/03/2005 00:00:00 06/11/2008 02:02:29 [id number] [facility] [address] [facility] [place] [address] 03/05/2005 00:00:00 06/11/2008 02:02:29 [id number] [facility] OFFICE [address] [place] [address] 03/22/2005 11:38:15 06/11/2008 02:02:29 [id number] LAB - [address] [place] [address] 04/07/2005 11:17:42 04/07/2005 11:18:12 [id number] [facility], OFFICE [address] [place] [address] 04/07/2005 10:16:57 05/05/2005 13:48:22 [id number] Radiology , [address] [place] [address] 05/05/2005 14:31:23 05/06/2005 07:16:06 [id number] [facility], OFFICE [address] [place] [address] 05/04/2005 15:53:38 05/05/2005 13:43:48 [id number] Radiology , [address] [place] [address] 07/29/2005 14:29:39 08/01/2005 08:24:32 [id number] FP [facility] [place] [address] [place] [address] 1 02/14/2006 10:01:47 02/15/2006 08:44:10 [id number] PEDRO [facility] OFFICE [address] [place] [address] 1 03/01/2006 11:11:47 03/01/2006 14:00:11 [id number] LAB - [facility] [address] [place] [address] 03/01/2006 11:00:39 03/01/2006 11:00:44 [id number] [facility] OFFICE [address] [place] [address] 1 03/02/2006 14:51:32 03/03/2006 08:51:20 [id number] Radiology , [facility] [address] [place] [address] 2006 12:06:04 2006 14:22:09 [id number] [facility] OFFICE [address] [place] [address] 1 05/08/2006 09:00:00 06/11/2008 02:02:29 [id number] Radiology , [address] [place] [address] 1 09/28/2006 15:33:14 09/28/2006 16:20:37 [id number] Rheumatol ogy, [facility] [address] [place]achez [address] 1 09/28/2006 14:18:59 09/29/2006 10:15:07 [id number] LAB - [address] [place] [address] 1 09/28/2006 15:19:02 09/28/2006 15:29:56 [id number] LAB - [address] [place] [address] 1 11/02/2006 12:36:23 11/02/2006 12:36:31 [id number] PEDRO [facility] OFFICE [address] [place] [address] 1 11/02/2006 11:16:37 11/02/2006 14:29:20 [id number] [facility] [address] [place] [address] 1 11/21/2006 11:50:12 11/23/2006 15:36:26 [id number] [facility] OFFICE [address] [place] [address] 1 03/27/2007 09:06:10 04/03/2007 08:50:37 [id number] Radiology , [facility] [address] [place] [address] 1 04/04/2007 09:27:27 04/04/2007 09:54:41 [id number] [facility] OFFICE [address] [place] [address] 1 04/09/2007 09:08:29 06/11/2008 02:02:29 [id number] Radiology , [facility] [address] [place] [address] 1 06/07/2007 13:53:38 06/07/2007 14:08:47 [id number] [facility] OFFICE [address] [place] [address] 1 05/13/2008 10:37:44 06/11/2008 02:02:29 [id number] Radiology , [facility] [address] [place] [address] 1 09/17/2008 09:23:21 09/18/2008 14:11:27 [id number] [facility] OFFICE [address] [place] [address] 1 09/17/2008 09:56:01 09/18/2008 08:40:17 [id number] [facility], OFFICE [address] [place] [address] 09/20/2008 15:13:23 09/25/2008 12:43:15 [id number] Radiology , [facility] [address] [place] [address] 09/22/2008 12:42:09 09/25/2008 14:21:06 [id number] [facility] OFFICE [address] [place] [address] 1 10/06/2008 09:49:50 10/07/2008 09:30:39 [id number] [facility] OFFICE [address] [place] [address] 1 02/13/2009 15:17:05 02/16/2009 11:54:39 [id number] LAB - [facility] [address] [place] [address] 1 09/17/2008 11:25:38 09/17/2008 11:25:48 [id number] LAB - [facility] [address] [place] [address] 09/18/2008 08:59:38 09/18/2008 08:59:44 [id number] LAB - [facility] [address] [place] [address] 09/22/2008 12:33:05 09/22/2008 12:33:14 [id number] [facility] [address] [place] [address] 11/14/2008 11:15:51 11/14/2008 11:15:58 [id number] [facility] [address] [place] [address] 1 12/17/2008 09:38:48 12/17/2008 09:38:53 [id number] [facility], OFFICE [address] [place] [address] [place] [address] 1 04/06/2009 10:55:37 04/07/2009 09:02:56 [id number] Grace Barrera LPN , [facility], OFFICE [address] [place] [address] [place] [address] 1 11/16/2009 14:24:40 11/18/2009 10:31:40 [id number] [facility] , [address] [place] [address] 12/16/2009 11:28:58 12/17/2009 13:26:[id number] [place] [address] 1 03/03/2010 13:42:20 03/03/2010 14:57:40 [id number] [facility] , [address] [place] [address] 12/24/2010 09:02:54 12/24/2010 15:11:17 [id number] , [address] [place] [address] 1 04/11/2011 12:32:42 04/11/2011 13:56:54 [id number] Jacquelyn Ricks RN [address] [place] [address] 1 06/01/2012 13:59:59 06/04/2012 08:16:46 [id number] CHIP Ngo, [address] [place] [address] 1 07/23/2012 09:11:06 07/23/2012 09:56:51 [id number] Lennie VASQUEZ, [address] [place] [address] 1 12/28/2012 13:24:39 12/31/2012 10:26:58 [id number] Lennie VASQUEZ, [address] [place] [address] 1 08/12/2013 14:42:13 08/13/2013 08:58:26 Foot pain [id number] EKG performed and faxed. No pre operative clearance requested. Electrocar diogram abnormal 584028739 When compared 01/01 has new Q, but this is the same as 08/01, which led to an denosine stress test. Comparison s d/w Kirkhoffer - No restrictio ns based on EKG [id number] Tata VASQUEZ, [facility], OFFICE [address] [place] [address] 1 10/28/2013 11:23:30 10/28/2013 12:17:09 Postmenopausal state 42473465 Screening for malignant neoplasm of colon 469503261 Open wound 522921802 poc ket from prior instrument locus has not healed and is draining serous fluid- a seroma will culture and allow trial of healing on own, but i impressed upon her that it would likely require surgical revision. keep dressed, daily changes and follow. seen with caregiver culture sent [id number] Nell Quispe MA , [facility], OFFICE [address] [place] [address] 1 12/03/2013 13:23:58 12/04/2013 08:19:18 Congestive heart failure 58329574 overall better after substantia l diuresis. Check BMP today. Again, if gains 2# in a day, call and we can increase Lasix as needed. Coughing still- has pulm appt Chronic pain 64734488 on pain meds- awaiting discussion for new spinal stimulator . 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 Candidiasis of mouth 40666163 looks and sounds like thrush- not sure if this might also be related to her cough. try nystatin [id number] Janine Herr , [facility], OFFICE [address] [place] [address] 02/11/2014 16:03:08 02/11/2014 17:11:37 Contact dermatitis 52540510 refill Seizure disorder 505048741 11:40 Monday to see Franco's office. Is on topamax and gabatril to help clarify what she needs to do with keppra. >50% 45 min coordinati ng care Congestive heart failure 54034457 overall better. Check BMP today. Again, if gains 2# in a day, call and we can increase Lasix as needed. Chronic pain 24792845 on pain meds- awaiting discussion for new spinal stimulator . 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 Instructed 1/2 tabs for 1 wk then 1/2 tab for 1 week. Amputated toe 996404468 needs PT for when gets foot prosthetic . [id number] Laxmi Woo RN , [facility], OFFICE [address] [place] [address] 03/17/2014 15:22:54 03/17/2014 15:58:17 Influenza vaccine needed [id number] 106 Cellulitis of foot 299381881 right forefoot tenderness noted past 3 days -which was problemati c a her prosthesis fitting earlier today. systemical ly well w/o complaint. appears indeed to have mild inflammati on in this numb foot despite lack of entry wound being seen. will treat as cellulitis in this patient rto for non response, progressiv e redness warmth or increased pain of onset weakness, FSC Candidiasis of mouth 22697951 wishes convenienc e change to tablet form [id number] Janine Herr , [facility], OFFICE [address] [place] [address] 1 04/07/2014 09:20:33 04/07/2014 10:06:03 Seizure disorder 742490031 Seems stable back on Keppra, though causing confusion. Will discuss more at appt with em rose (Herbie) to see him 05/04/14. Essential hypertension 51507641 Is on atenolol 50 now 2' decreased BP. Says VNA has had high redings. If continues, contact me to discuss re-increas ing atenolol back to 100/day Amputated toe 690949328 needs PT for foot prosthetic . [id number] Nell Quispe MA , [facility], OFFICE [address] [place] [address] 05/27/2014 10:28:08 05/27/2014 11:28:11 Spinal cord disease 02085648 Pt has numerous comorbidit ies complicati ng her case. Labs ordered as requested. Clearance is pending clinical improvemen t of her dental infection. I will extend her augmentin another 2 weeks (til surgery date). Augmentin has been causing tics/tremo r (based on onset after beginning PO augmentin and stopping after d/c yesterday of augmentin) . Discussed possibilit y of clindamyci n as an agent for oral aime, but this is a less-known item for her. She's willing to put up with the twitching for 2 wks to clear this up. However, if not clinically improving after 1 wek, pt to call me and I'll change her to clindamyci n for this infection. Otherwise cleared on cardiovasc ular standpoint . Mechanical complication of nervous system device, implant AND/OR graft 80104064 See above Morbid obesity 738132914 Difficult to address with other comorbidit ies Epilepsy 02136854 Follow ed by neuro- ubclear exact etiology Amputated toe 350375511 stable Heart failure 78543481 S o far stable w/ meds since latest hospitaliz ation Single ronda or depressive episode 286107900 stable on meds [id number] Janine Herr , [facility], OFFICE [address] [place] [address] 07/01/2014 10:19:11 07/01/2014 11:17:33 Contact dermatitis 51781097 refill Altered mental status 929410152 Very complicate d case. AMS likely multifacto ral: meds, hypoglycem ia, ?bradycard ia. Has appt w/ neuro but in a month. Will try to get case mgmt to get in sooner with this continuati on of her confusion. Also to cardiology to eval w/holter fro bradycardi a. Will continue checking sugars, though they have always been ok as far as I can see. Very complicate d case, made somewhat more difficult by her recent increased confusion. Bradycardia 77414964 Not d bradycardi a during hosp. Though not so now. will refer to cardiology (Perr- moved to new practice) for holter [id number] Nam Gordon PA-C , [facility], OFFICE [address] [place] [address] 07/23/2014 13:24:26 07/23/2014 14:30:02 Disorder of brain 83185537 PT is alternatel y lucid and confused, repeatedly asking what's meloxicam and I do it all [refer ring to who fills her pill boxes] I will get case mgmt. to help us coordinate meds list and notes from specialist s. During her last procedure on her back 06/25/14 she had a seizure vs pseudoseiz ure. She had an inpatient workup at that time, deemed inconclusi ve. A neuro consult rec'ds that, if npo in future, she should halve her pain meds. Pt told me that she was told that, if she's NPO she would need admission for IV fluids and glucose, though I have no recommenda tion to that effect on paper. Once we get a better sense of what meds she's on and which she should hold, and how to deal with NPO status (needed for this dental procedure) I would do a note without needing to see her. Pulp and p eriapical tissue disease 006619830 [id number] Tata Weber , [facility], OFFICE [address] [place] [address] 09/24/2014 11:17:35 09/24/2014 11:56:50 Pre-surgery evaluation 797863880 Ms. Mckeon is scheduled for an intratheca l pump placement on 10/09/14. Labs were ordered as requested and are copied to you. She is a high risk for anesthesia complicati ons, especially in light of her recent complicati ons when NPO for a dental extraction in June of this year. After extensive workup, the event she experience d was deemed non-neurol ogic. It is presumed that her seizure-li ke activity and altered mental status was due to a combinatio n of polypharma cy, hypoglycem ia or hypotensio n/bradycar libby. For her to have general anesthesia , I would recommend this happen only if she is admitted for observatio n the night before so her vital signs and blood glucose can be observed once she is NPO. I? d further recommend that her methadone and dilaudid doses be halved from her usual doses and then her pain being managed prn as the houseEmilystaf f feels appropriat e. Essential hypertension 72455725 stable now. Would like home BP cuff Active or passive immunization [id number] Anabel Soliz , [facility], OFFICE [address] [place] [address] 10/15/2014 08:18:40 10/15/2014 09:06:27 Chronic pain 21380115 Doing overall well s/p surg for pump placement and blood patch s/p spinal MCCORD. IT sounds like they did not admit her the night before surg as I'd sugggested , but that she did well without any AMS ass has happened before. Complicate d visit with coalating records and arranging, through Case Mgmt. Continue watching for s/sx infection and with fu visits w/ surgery next wk and Arya in 2 wks [id number] REBECCA Farfan, [facility], OFFICE [address] [place] [address] 11/11/2014 10:23:44 11/11/2014 11:35:11 Benign essential hypertension 4469263 Blood pressure at goal Seborrheic dermatitis 10743939 Chronic pain 53947331 Fo llowing up with Arya, titratin g bipivucain e pump Surgical site seems like granulatio n, tenderness . Will oberve. Inform Arya if worsening. Foot pain 11152308 Uncle ar what this is. Skin appears nl, though. Doubt osteomyeli tis. Will observe for now, try going back to DM socks and avoid contact as possible. If worsening, consider XR [id number] James Peterson Case Managemen t [address] [facility] [place] [address] 11/11/2014 15:46:31 03/11/2015 16:05:41 Chronic pain 82938574 Following up with Arya, titratin g bipivucain e pump Surgical site seems like granulatio n, tenderness . Will oberve. Inform Arya if worsening. Spinal cord disease 74213352 Benign ess ential hypertension 1197019 Blood pressure at goal Seborrheic dermatitis 41657239 Foot pain 15804049 Uncle ar what this is. Skin appears nl, though. Doubt osteomyeli tis. Will observe for now, try going back to DM socks and avoid contact as possible. If worsening, consider XR [id number] James Peterson Case [facility]ag[facility] t [address] [facility] [place] [address] 02/02/2015 10:31:05 03/11/2015 16:05:06 Morbid obesity 202728436 Chronic pain 78999829 [id number] HALEIGH Amanda, [facility], OFFICE [address] [place] [address] 02/03/2015 09:31:24 02/03/2015 10:41:40 Lifestyle 807906453 Chest wall pain 323433643 XR not working- luigi get done at [facility] , suspect just numerous contusions . MEdicating is difficult w/ comorbidit ies and meds. Tomrrow picking up dilaudid from [facility] Pain in le ft lower limb 803821658 above Influenza vaccine needed [id number] James Peterson Case [facility] t [address] [place], [place] [address] [address] 02/25/2015 15:43:11 03/31/2015 15:21:33 Spinal cord disease 08689199 G95.9 Chronic pain 78573885 G8 9.29 Following up with Arya, titratin g bipivucain e pump Surgical site seems like granulatio n, tenderness . Will oberve. Inform Arya if worsening. [id number] Lisseth VASQUEZ, [facility], OFFICE [address] [place] [address] 2015 11:29:43 2015 16:10:38 Sciatica 07724673 M54.31 Severe pain and pt already nonverbal from combinatio n of pain and pain meds. Is on prednisone 30 daily already from rheum for psoriasis and pain progressin g. Due to degree of her compromise and pain and polypharma cy, will send to [facility] for hopeful admission for pain control. [id number] James Peterson Case [facility]ag[facility] t [address] [place], [place] [address] [address] 04/27/2015 15:33:57 06/16/2015 12:25:20 Chronic pain 49498689 G89.29 Following up with Arya, titratin g bipivucain e pump Surgical site seems like granulatio n, tenderness . Will oberve. Inform Arya if worsening. Urge incon tinence of urine 15585789 N39.41 [id number] James Peterson Case [facility] t [address] [place] [address] [place] [address] 1 04/29/2015 09:54:05 06/16/2015 12:24:05 Chronic pain 26711357 G89.29 Following up with Arya, titratin g bipivucain e pump Surgical site seems like granulatio n, tenderness . Will oberve. Inform Arya if worsening. Urge incon tinence of urine 31285364 N39.41 Spinal cord disease 4852 2002 G95.9 [id number] Rhianna VASQUEZ, [facility], OFFICE [address] [place] [address] 05/20/2015 09:34:31 05/20/2015 10:39:47 Chronic pain 69235775 G89.29 Very complicate d case. No memory of her fall or why exactly she fell. Polypharma cy eeems to be an issue. I'll devorah Jose C and see if he has thoughts about this. Will work on getting her meds refilled such that she can get blister packs. Rxs to L&[facility]. Coordinato r: Mary Guajardo (soham .c om) >50% 35 min coordinati ng care. Rhabdomyolysis 506311580 M62.82 Improved now since admission [id number] James Peterson Case Managemen t [address] [facility] [place] [address] 06/02/2015 16:49:58 06/24/2015 13:21:01 Urge incontinence of urine 86034918 N39.41 Neurogenic urinary bladder 496878002 N31.9 [id number] James Peterson Case Managemen t [address] [facility] [place] [address] 06/25/2015 14:53:07 08/10/2015 09:59:11 Disorder of brain 20733647 G93.9 PT is alternatel y lucid and confused, repeatedly asking what's meloxicam and I do it all [refer ring to who fills her pill boxes] I will get case mgmt. to help us coordinate meds list and notes from specialist s. During her last procedure on her back 06/25/14 she had a seizure vs pseudoseiz ure. She had an inpatient workup at that time, deemed inconclusi ve. A neuro consult rec'ds that, if npo in future, she should halve her pain meds. Pt told me that she was told that, if she's NPO she would need admission for IV fluids and glucose, though I have no recommenda tion to that effect on paper. Once we get a better sense of what meds she's on and which she should hold, and how to deal with NPO status (needed for this dental procedure) I would do a note without needing to see her. Chronic pain 81546519 G8 9.29 Very complicate d case. No memory of her fall or why exactly she fell. Polypharma cy eeems to be an issue. I'll devorah Woodall and see if he has thoughts about this. Will work on getting her meds refilled such that she can get blister packs. Rxs to L&C. Coordinato r: Mary Bermudezro (medibubbl .c om) >50% 35 min coordinati ng care. Spinal cord disease 4852 2002 G95.9 [id number] James Peterson Case Managemen t [address] [facility] [place] [address] 07/20/2015 11:32:21 08/10/2015 09:58:44 Epilepsy 90815101 G40.909 Followed by neuro- ubclear exact etiology Chronic pain 78587940 G8 9.29 Very complicate d case. No memory of her fall or why exactly she fell. Polypharma cy eeems to be an issue. I'll devorah Woodall and see if he has thoughts about this. Will work on getting her meds refilled such that she can get blister packs. Rxs to L&C. Coordinato r: Mary Bermudezro (medibubbl .c ) >50% 35 min coordinati ng care. [id number] Darnell Mishra , [facility], OFFICE [address] [place] [address] 1 08/17/2015 13:02:55 08/18/2015 10:57:44 Urinary tract infectious disease 24311829 N39.0 Push fluids f/u if no improvemen t in 72 hours or for fever or back pain. [id number] Grace Alanis , [facility], OFFICE [address] [place] [address] 08/31/2015 13:28:15 08/31/2015 14:52:11 Chronic urinary tract infection 479392427 N39.0 Numerous UTIs in past 4 mos including one causing sepsis and rhabdo, Dip today +. Culture ~2 wks ago sensitive to all. Will tx today w/ bactrim. Will start prophylaxi s macrobid after finishes this course. Also, if has sx, I'm ok having her drop off urine for UA/culture without appt as she knows her sx pretty well Active or passive immunization 022693377 Z23 Administra tion of diphtheria and tetanus vaccine 30558360 Z23 [id number] Nam Gordon PA-C , [facility], OFFICE [address] [place] [address] 11/16/2015 13:27:37 11/16/2015 14:44:47 Benign essential hypertension 1196915 I10 Blood pressure at goal Mixed hyperlipidemia 267 423701 E78.2 Cholestero l is at goal Screening for disorder 554121695 Z11.59 Amputated toe 367994522 Z89.429 stable-- followed by Arya Epilepsy 51811903 G40.90 9 Was started on keppra in hospital 05/05 when was septic, but never officially dx w/ sz d/o. Take 1 daily for 1 week then stop. Chronic pain 16222444 G8 9.29 Followed by Arya Chronic ur inary tract infection 677966983 N39.0 by sx, seems to have worsening of baseline colonizati on. Will stop macrobid while taking cipro for 5 days, then back to daily macrobid. Had nausea on levaquin. If occurs with cipro, call and I'd increase macrobid dose Major depr essive disorder 842953132 F32.9 stable on meds Morbid obesity 087690373 E66.01 complicate s care Cervical myelopathy 6 59740 G95.9 has pain pump [id number] Елена Skaggs LPN , [facility], OFFICE [address] [place] [address] 03/08/2016 11:04:44 03/08/2016 12:04:45 Active or passive immunization 465053872 Z23 [id number] Nell Quispe MA , [facility], OFFICE [address] [place] [address] 06/06/2016 13:41:59 06/06/2016 14:42:22 Adult health examination 061977575 Z00.00 Exam done Counseling 005814107 Z71 .9 Benign ess ential hypertension 5816523 I10 Blood pressure at goal Mixed hyperlipidemia 267 289111 E78.2 Cholestero l is at goal Amputated toe 785120190 Z89.429 stable Neurogenic urinary bladder 565355416 N31.9 self caths with frequent UTIs. On daily nitrofuran toin Spinal cord disease 4852 2002 G95.9 with implanted intratheca l pump Serum crea tinine above reference range 019031787 R79.89 repeat Epilepsy 04132800 G40.90 9 Deemed pain related seizure ?pseudosei zure. Chronic pain 86341477 G8 9.29 Followed by Arya Major depr ession, melancholic type 087964297 F32.9 On cymbalta, but for pain. Stable Morbid obesity 474121997 E66.01 complicate s care Screening for malignant neoplasm of colon 074370364 Z12.11 Otto is too complicate d. Will check IFOB [id number] Nam Gordon PA-C , [facility], OFFICE [address] [place] [address] 11/21/2016 11:00:53 11/21/2016 11:38:48 Mixed hyperlipidemia 103708307 E78.2 at goal on meds Benign ess ential hypertension 4052596 I10 Blood pressure at goal Followed by nephrology Screening mammography 24 424065 Z12.31 Giant cell arteritis 414 910024 M31.6 presumptiv dorita t, though unclear if this is the true dx. MAy be migraines instead. Major depr essive disorder 422059917 F32.9 stable on meds Chronic pain 24816043 G8 9.29 Followed by Arya [id number] Nam Gordon PA-C , [facility], OFFICE [address] [place] [address] 01/31/2017 09:41:07 01/31/2017 10:21:54 Active or passive immunization 890589927 Z23 Herpes zoster 1736735 B0 2.9 Looks like zoster, not indurated like cellulitis . Will tx for shingles. 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 Doesn't seem like CVA. Will try prednisone to see if this helps he palsy Benign ess ential hypertension 8055644 I10 refill [id number] CHIP Ngo, [facility] [facility] [place] [address] [place] [address] 05/29/2017 09:34:33 05/29/2017 10:10:51 Long-term drug therapy 672273138 Z79.899 QT/VMn=811 /409. No noted QT prolongati on. Eruption 453961548 R21 [id number] CHIP Ngo, [facility] [place] OFFICE [address] [place] [address] 06/12/2017 11:08:28 06/12/2017 12:01:40 Adult health examination 670905626 Z00.00 Exam done Counseling 531638497 Z71 .9 Benign ess ential hypertension 4589030 I10 Blood pressure at goal. Continue meds Mixed hyperlipidemia 267 258681 E78.2 at goal on meds Morbid obesity 138974714 E66.01 complicate s care Gastroesop hageal reflux disease 886102253 K21.9 stable on PPI Amputated toe 344970176 Z89.429 stable Major depr essive disorder 319039067 F32.9 stable on meds Neurogenic urinary bladder 233860863 N31.9 self caths with frequent UTIs. On daily nitrofuran toin Spinal cord disease 4852 2002 G95.9 with implanted intratheca l pump Chronic pain 85237418 G8 9.29 Followed by [facility] Epilepsy 73888106 G40.90 9 Deemed pain related seizure ?pseudosei zure. Urge incon tinence of urine 81350228 N39.41 Uses pad Heart failure 99162733 I 50.9 Stable after '14 admission for same. Followed by cardiology Giant cell arteritis 414 231979 M31.6 presumptiv dorita tx, though unclear if this is the true dx. May be migraines instead. Cough 98655133 R05 exp wheeze. Doubt infectious or SYLVIA cough. Try prednisone Intertrigo 68521539 L30. 4 rx below. Stop steroid crm for now [id number] CHIP Ngo, [facility], OFFICE [address] [place] [address] 09/19/2017 10:29:12 09/19/2017 11:05:07 Syncope 672174953 R55 nl w/u in [place]. Deemed vaso-vagal . 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 HArd for her to get to renal appts. Hemorrhoids 32249685 K64 .9 bleeding a lot. Will refer to surg. Noted on colo, but not indicated whether int or ext. [id number] Nam Gordon PA-C , [facility], OFFICE [address] [place] [address] 12/04/2017 10:53:32 12/04/2017 11:32:19 Benign essential hypertension 9672634 I10 Blood pressure at goal. Continue meds Mixed hyperlipidemia 267 568179 E78.2 at goal on meds Chronic ki dney disease stage 3 431599422 N18.3 Labs stable. Previosuly followed by nephrology , we do CBC/BMP q6mos Giant cell arteritis 414 446697 M31.6 presumptiv dorita tx, 06/08 though unclear if this is the true dx. May be migraines instead. Spinal cord disease 4852 2002 G95.9 with implanted intratheca l pump, followed by [facility] Chronic pain 71557269 G8 9.29 Followed by Arya Neurogenic urinary bladder 171696506 N31.9 self caths with frequent UTIs. On daily nitrofuran toin Major depr essive disorder 172746709 F32.9 stable on meds Amputated toe 954000177 Z89.429 stable Gastroesop hageal reflux disease 792383474 K21.9 stable on PPI Morbid obesity 616756161 E66.01 complicate s care Heart failure 93866587 I 50.9 Stable- saw cardiology last month Urge incon tinence of urine 80682056 N39.41 Uses pad [id number] CHIP Jensen, [facility], OFFICE [address] [place] [address] 04/16/2018 09:16:57 04/16/2018 10:19:28 Mixed hyperlipidemia 726145439 E78.2 On simvastati n 10 mg. Will be due for f/u labs. Benign ess ential hypertension 9012157 I10 Blood pressure at goal. Continue current regimen. labs today. Chronic pain 01625427 R5 [address] Koenig. Next f/u May 17. Opioid dependence 789443 00 F11.20 Foot pain 74690668 M79.6 71 New right foot pain. Hasn't improved with pump adjustment s by Dr. Koenig. Will send to podiatry- she also needs new orthotics. Amputated toe 399426501 Z89.429 All toes on right foot amputated. Chronic ki dney disease stage 3 567686262 N18.3 Labs stable. Previosuly followed by nephrology , we do CBC/BMP q6mos. She will have f/u labs today. Giant cell arteritis 414 289691 M31.6 presumptiv dorita tx, 06/08 though unclear if this is the true dx. May be migraines instead. Spinal cord disease 4852 2002 G95.9 with implanted intratheca l pump, followed by [facility] Neurogenic urinary bladder 639420802 N31.9 self caths with frequent UTIs. On daily nitrofuran toin Major depr essive disorder 204763653 F32.9 stable on meds Gastroesop hageal reflux disease 432848399 K21.9 stable on PPI Morbid obesity 004826304 E66.01 complicate s care Heart failure 22079354 I 50.9 Stable- saw cardiology 10/2017. Will see them yearly. Urge incon tinence of urine 44819978 N39.41 Uses pad Neck pain 57834078 M54.2 MSK in nature- spasm/tend erness to traps bilaterall y. Discussed heat several times a day followed by stretching /ROM exercises. [id number] Efrem Mcfarlane DPM Podiatry, [facility] [address] [place] [address] 05/11/2018 10:16:21 05/14/2018 08:11:24 Amputated foot 742632990 Z89.996 [id number] CHIP Jensen, [facility], OFFICE [address] [place] [address] 06/11/2018 10:47:25 06/11/2018 16:16:18 Long-term drug therapy 490522336 Z79.899 EKG stable from 05/2017. QT/QTc: 360/396. Will forward to Dr. Koenig. [id number] CHIP Jensen, [facility], OFFICE [address] [place] [address] 06/18/2018 09:41:18 06/18/2018 10:35:53 Adult health examination 882977366 Z00.00 Stable health. Mult medical issues. Counseling 039398835 Z71 .9 Depression screening 171 056219 Z13.89 0. mood stable. depression screening tool administer ed, entered into emr, scored and discussed, time greater than 7.5 minutes Mixed hyperlipidemia 267 036848 E78.2 Cholestero l is at goal Continue to work on diet and exercise as discussed Benign ess ential hypertension 3785517 I10 Blood pressure at goal. Continue current regimen. Chronic pain 45882576 R5 [address] Koenig. Next f/u in a month Opioid dependence 431344 00 F11.20 Foot pain 25093242 M79.6 71 Seeing podiatry for new orthotics. May need surgery. Amputated toe 362881886 Z89.429 All toes on right foot amputated. Chronic ki dney disease stage 3 628828079 N18.3 Labs stable. previously followed by nephrology . Creatinine up slightly on recent labs. Check in 1 month. Giant cell arteritis 414 001341 M31.6 presumptiv droita tx, 06/08 though unclear if this is the true dx. May be migraines instead. Spinal cord disease 4852 2002 G95.9 with implanted intratheca l pump, followed by [facility] Neurogenic urinary bladder 900619647 N31.9 self caths with frequent UTIs. On daily nitrofuran toin Major depr essive disorder 354920467 F32.9 stable on meds Gastroesop hageal reflux disease 609399119 K21.9 stable on PPI- has to get OTC, no longer covered by insurance. Morbid obesity 474723004 E66.01 complicate s care Heart failure 67557217 I 50.9 Stable- saw cardiology 10/2017. Will see them yearly. Urge incon tinence of urine 77660174 N39.41 Uses pad Epilepsy 67260844 G40.90 9 ? hx of pseudoseiz ure. Eruption 072754063 R21 under breasts, no real improvemen t with Nystatin. Trial of cortisone, which she has at home. She will let me know if no improvemen t in 1-2 weeks. [id number] CHIP Jensen, [facility], OFFICE [address] [place] [address] 12/17/2018 10:32:19 12/17/2018 11:20:39 Mixed hyperlipidemia 759771208 E78.2 Cholestero l is at goal Continue to work on diet. Exercise is very limited Opioid dependence 439921 [address] Koenig. Chronic pain 87056798 R5 [address] Koenig. Next f/u in a month. Recent epidural injection not helpful. Seborrheic dermatitis 50 261286 L21.9 Renewed Rx. Morbid obesity 935652597 E66.01 complicate s care. Limited ambulation . Benign ess ential hypertension 6029074 I10 Blood pressure at goal. Continue current regimen. Amputated toe 402038035 Z89.429 All toes on right foot amputated. Chronic ki dney disease stage 3 818027042 N18.3 Labs stable. previously followed by nephrology . Creatinine 1.2 on recent labs (11/2018) Spinal cord disease 4852 2002 G95.9 with implanted intratheca l pump, followed by [facility] Neurogenic urinary bladder 289940958 N31.9 self caths with frequent UTIs. On daily nitrofuran toin Heart failure 80039703 I 50.9 Stable- saw cardiology 10/2018. Will see them yearly. On furosemide and atenolol. [id number] DAHLIA Patel, [facility], OFFICE [address] [place] [address] 04/15/2019 15:25:28 04/16/2019 15:43:24 Active or passive immunization 649539460 Z23 [id number] CHIP Jensen, [facility], OFFICE [address] [place] [address] 01/09/2020 11:22:54 01/10/2020 10:21:37 Opioid dependence 50192184 F11.[address] Koenig. Will need new pain specialist as above. Spinal cord disease 4852002 G95.9 with implanted intratheca l pump, followed by [facility], however Dr. Dyer will be retiring. She has complex pain with rectal/nori pain that has been very difficult to controll. We have discussed her pain management at length. I am not comfortabl e being her pain management provider. I have agreed if there is a short lapse between pain specialist s that I will continue her Rx as is in the interim, however this will not be indefinite . She will continue to work with Dr. Dyer to find an appropriat e pain specialist to take over her care. Lumbar post-laminectomy syndrome 275734856 M96.1 as above Rectal pain 99535418 K62 .89 as above Complex re gional pain syndrome 796118924 M89.00 as above Lumbar spondylosis 66738 0009 M47.896 as above. Neck pain 16080899 M54.2 chronic Morbid obesity 431809943 E66.01 complicate s care. Limited ambulation . Rheumatoid arthritis 698 [address] Guajardo . Amputated toe 895544827 Z89.429 All toes on right foot amputated. [id number] Ana Sapp PA-C , [facility], OFFICE [address] [place], [place] [address] 03/23/2020 09:07:04 03/27/2020 16:44:50 Chronic kidney disease stage 3 911938447 N18.30 As above, recheck labs. Complex re gional pain syndrome 548908587 M89.00 Has been prescribed by Dr. Dyer in the past. Has a new pain specialist at [facility]- Dr. Mason Palacios- [phone], however, he only plans to manage pump. Currently on 1 tab in the am and 2 in the PM, will decrease to 1 tab BID. We will request records from Dr. 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 Epilepsy 07125255 G40.90 9 ? hx of pseudoseiz ure. Reports as pain seizure. Acute inju ry of kidney 5678534973 9749080 N17.9 Needs f/u labs. Altered mental status 41 0069191 R41.82 Hospitaliz ation due to altered mental status. Urine cx was negative, although treated for presumptiv e UTI. She is back to baseline and reports similar episodes as a reaction to the tiagabine if she hasn't slept. Will decrease dose as above. Amputated foot 557698307 Z89.737 [id number] CHIP Jensen, [facility], OFFICE [address] [place] [address] 05/12/2020 10:46:55 05/13/2020 11:09:03 Complex regional pain syndrome 860519485 M89.00 Recent f/u with pain management . She will need pump replaced 2020. Benign ess ential hypertension 5010577 I10 Blood pressure at goal. Continue current regimen. Rheumatoid arthritis 698 23127 M06.9 Followed by Rheum. Increase in symptoms. Prednisone was just increased to 10 mg daily. She has f/u in 3 weeks, plan to repeat labs at that point. Constipation 30997126 K5 9.00 Ongoing issue. Discussed bowel regimen. Continue hydration. Discussed fiber supplement as well Heart failure 78143384 I 50.9 Stable. On furosemide and atenolol. Renewed meds. Major depr essive disorder 149147091 F32.0 Mood is stable on meds. On duloxetine for pain management . [id number] Frances Ayala . MD VASQUEZ, [facility], OFFICE [address] [place] [address] 05/08/2020 10:13:15 05/08/2020 15:51:55 Urinary tract infectious disease 01529355 N39.0 will empiricall y treat with bactrim for 3 days as she does not want to come in to give a urine today. Patient instructed to push fluids, to follow up for persistent or worsening symptoms or fever or back pain. if sx persist will need urine culture. [id number] Fidelina Garcia er, [employer], [facility], OFFICE [address] [place] [address] 06/12/2020 13:20:44 06/15/2020 14:02:54 Benign essential hypertension 2512946 I10 Lasix discontinu ed during recent hospital admission BP today 98/61, pulse 80 per [facility]NA -- decrease atenolol to 12.5 mg daily, [facility] to recheck BP on Monday. 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 -- [facility]NA to check bmp twice weekly, starting Monday Pressure i njury of buttock 829891460 L89.309 VNA reports stage 1 pressure ulcer on R buttock -- use foam dressing as below -- advised patient to shift weight with pillows -- PT to house tomorrow Epilepsy 18346832 G40.90 9 Pt reports hx of 1 seizure due to pain Oxcarbazep ine and tiagabine discontinu ed during hospitaliz ation Fracture of femur 779450 00 S72.92XD S/p fall 05/19/2020 , ORIF medial condyle frx left femur 05/22/20, hospitaliz ed [facility] 05/19/20 -05/29/20, [facility] 05/29/20- 06/10/20. She lives alone, staying in bed, able to transfer to bedside comode on own. A friend comes in the morning, makes breakfast, and leaves her a sandwich for later in the day. Is not transferin g to wheelchair . Pain stable per patient Spoke with [facility], reviewed med list, she reports incision healing well. -- Continue lovenox for DVT prophylaxi s -- [facility]NA arrived today, PT to arrive to home tomorrow -- messaged case making machine operator Jacquelyn Ricks regarding increased home health aid options as patient could benefit from additional assistance -- Follow up with surgeon mid Jun -- Follow up with PCP Constipation 96185470 K5 9.00 Controlled Continue docusate 100 mg bid, senna 8.6 mg daily. Lactulose 15mL PRN [id number] Ana Sapp PA-C , [facility] [place], OFFICE [address] [place] [address] 06/24/2020 13:29:01 06/26/2020 09:18:33 Morbid obesity 303259874 E66.01 complicate s care. Limited ambulation . Fracture of femur 578076 00 S72.92XD S/p fall 05/19/2020 , ORIF medial condyle frx left femur 05/22/20, hospitaliz ed [facility] 05/19/20 -05/29/20, [facility] 05/29/20- 06/10/20. She lives alone, staying in bed, able to transfer to bedside comode on own. A friend comes in the morning, makes breakfast, and leaves her a sandwich for later in the day. Is not transferin g to wheelchair . Pain stable per patient Has home VNA. F/u with surgeon in the next week for repeat imaging. Benign ess ential hypertension 4782546 I10 Lasix discontinu ed during recent hospital admission -- atenolol decreased to 12.5 mg daily at last visit. BP has remained well controlled (120/70) Call office if tachycardi c, palpitatio ns, or if BP >130/80 Heart failure 29308247 I 50.9 Lasix discontinu ed during [facility] hospitaliz ation ECHO 09/13/17 normal systolic function, EF 55% denies edema, sob Hold on restarting diuretic at this time. Rheumatoid arthritis 698 [address] Chester os Prednisone tapered down to 5 mg daily per 06/02/20 visit continue plaquenil 200 BID Osteoporosis 03122294 M8 1.0 Steroid induced osteoporos is. D/C alendronat e, L femur ORIF fracture To start Prolia with rheumatolo gist next visit continue calcium and vitamin D supplement s Syndrome o f inappropriate vasopressin secretion 33715150 E22.2 SIADH during recent hospitaliz ation, thought to be due to oxcarbazep ine, which was discontinu ed. -- VNA to check bmp weekly, starting Monday Pressure i njury of buttock 252087626 L89.309 VNA reported stage 1 pressure ulcer on R buttock Patient reports healing well. Epilepsy 41074339 G40.90 9 Pt reports hx of 1 seizure due to pain Oxcarbazep ine and tiagabine discontinu ed during hospitaliz ation Will remain off. [id number] CHIP Jensen, [facility], OFFICE [address] [place] [address] 07/27/2020 13:13:39 07/29/2020 15:03:23 Deep venous thrombosis of lower extremity 835543452 I82.409 Left LLE DVT 07/03/20 in the setting of recent femur frx. On eliquis x 3 months. Rx renewed. No signs of infection at recent ED visit and f/u US showed improvemen t. Benign ess ential hypertension 4902343 I10 BP has remained 130/80 or higher on home readings. Will go back to full tablet of atenolol 25 mg daily. Major depr essive disorder 526124679 F32.0 Mood is stable on meds. On duloxetine for pain management . Opioid dependence 993600 00 F11.20 Amputated foot 627274701 Z89.439 Spinal cord disease 4852 2003 G95.9 with implanted intratheca l pump. She has complex pain with rectal/nori pain that has been very difficult to controll. [id number] CHIP Jensen, [facility], OFFICE [address] [place], [place] [address] 08/19/2020 14:23:57 08/20/2020 11:48:22 Fracture of femur 62896784 S72.92XD S/p fall 05/19/2020 , ORIF medial condyle frx left femur 05/22/20, hospitaliz ed [facility] 05/19/20 -05/29/20, [facility] 05/29/20- 06/10/20. Continues with pain. Requesting refill of oxycodone- taking 5 mg once daily. Prior to hospitaliz ation was on hydromorph one 2 mg BID. Has f/u with Dr. Dee Monday. Will discuss further with him. I have also discussed with her to discuss pain regimen with her pain specialist further. My preference continues to be that they manage her pain medication regimen and not just her pump. F/u after she has discussed further with them. [id number] CHIP Jensen, [facility], OFFICE [address] [place] [address] 10/14/2020 14:01:07 10/14/2020 15:08:12 Chronic pain 25533178 R52 Ongoing chronic pain with worsening symptoms following fall and femur frx. [place] [facility] [place] and plans to have it replaced this yr. Previously on hydromorph one 2 mg BID. Was off when transition ed to oxycodone after her fall. I have agreed to small Rx for break thru pain. Reviewed R/B/A of meds. F/u 1 month to check in. Complex re gional pain syndrome 113445478 M89.00 Recent f/u with pain management . She will need pump replaced this yr. Lumbar post-laminectomy syndrome 019802138 M96.1 as above Opioid dependence 193106 00 F11.20 as above. Rheumatoid arthritis 698 67437 M06.9 Increased symptoms currently. Followed by Dr Chester os Prednisone increased to 20 mg. continue plaquenil 200 BID Chronic ki dney disease stage 3 276234131 N18.30 Recent labs reviewed creatinine 1.1, GFR 50 [id number] CHIP Jensen, [facility], OFFICE [address] [place] [address] 11/10/2020 10:13:41 11/11/2020 13:57:48 Rheumatoid arthritis 24891384 M06.9 Severe RA with worsening symptoms. Followed by Dr Chester os. Tapering off prednisone . Will be starting methotrexa te. Osteoporosis 01684845 M8 1.0 Steroid induced osteoporos is. Previously on alendronat e, L femur ORIF fracture. Now on Prolia with rheumatolo gist- thinks she is due in December for next injection. Would like to do updated DEXA. will order. continue calcium and vitamin D supplement s Insufficie ncy fracture 815058618 M84.30XA Insufficie ncy fractures noted on recent CT ordered by Dr. Chester os- upper left sacral wing and possible upper right S1 body. On prolia. Tapering off prednisone . Unable to exercise.I ncreased pain. [id number] CHIP Jensen, [facility], OFFICE [address] [place] [address] 12/08/2020 07:47:00 12/09/2020 11:53:40 Rheumatoid arthritis 70984537 M06.9 Severe RA with worsening symptoms. Followed by Dr Chester os. Tapering off prednisone . Will be starting methotrexa te. Osteoporosis 03448366 M8 1.0 Steroid induced osteoporos is. Previously on alendronat e, L femur ORIF fracture. Now on Prolia with rheum. Insufficie ncy fracture 359584376 M84.30XA Insufficie ncy fractures noted on recent CT ordered by Dr. Chester os- upper left sacral wing and possible upper right S1 body. On prolia. Tapering off prednisone . Unable to exercise.I ncreased pain. Chronic pain 96618420 R5 2 Ongoing chronic pain with worsening symptoms following fall and femur frx. [place] [facility] [place] [facility] [place] pump and plans to have it replaced this yr- Apr Previously on hydromorph one 2 mg BID. Was off when transition ed to oxycodone after her fall- now off. Back on hydromorph one 2 mg BID PRN break through pain. F/u 1 month to check in. Complex re gional pain syndrome 079992704 M89.00 Recent f/u with pain management . She will need pump replaced this yr. Lumbar post-laminectomy syndrome 187894644 M96.1 as above Opioid dependence 277637 00 F11.20 as above. [id number] CHIP Jensen, [facility], OFFICE [address] [place] [address] 08/02/2021 14:52:42 08/05/2021 15:02:05 Skin lesion 39578828 L98.9 Non healing raised lesion middle of back with slightly rolled edges and central excoriatio n. Will refer to derm. Concerning for skin cancer. Submammary intertrigo 24 3008174 L30.4 Renewed Rxs. Keep area clean and dry. Discussed signs/symp toms to monitor for. Complex re gional pain syndrome 473545731 M89.00 Pump replaced recently. Renewed Rx. Constipation 11740016 K5 9.00 Ongoing issue. Discussed bowel regimen. Continue hydration. Restart miralax daily. Benign ess ential hypertension 5859033 I10 BP well controlled on current regimen. Goal <130/80 Opioid dependence 936138 00 F11.20 as above. Cyst of kidney 118183333 N28.[address] last yr. Consider f/u imaging with US this year, will discuss with new provider at next visit, declines for now. Morbid obesity 700751711 E66.01 complicate s care. Limited ambulation . Rheumatoid arthritis 698 23822 M06.9 Severe RA with worsening symptoms. Followed by Rheum. On hydroxychl oroquine and methotrexa te. Spinal cord disease 4852002 G95.9 with implanted intratheca l pump. She has complex pain with rectal/nori pain that has been very difficult to controll. Pain pump recently replaced. [id number] Mirella Villatoro MD , [facility], OFFICE [address] [place], [place] [address] 09/28/2021 13:56:24 09/28/2021 20:14:27 Submammary intertrigo 589004653 L30.4 Nearly resolved. Saw Derm for this. Treated with high dose topical zinc oxide, salt soaks. No bras. Complex re gional pain syndrome 810996000 M89.00 F/b pain management . Recent increase in clonidine dose via pump (also gets hydromorph oxana and bupivicain e through pump) which seems to help. Constipation 40941908 K5 9.00 Ongoing issue, fairly under control on everything under the sun for bowels. Benign ess ential hypertension 7268273 I10 Controlled on current regimen. Goal <130/80 Opioid dependence 193942 00 F11.20 Hydromorph one through the pump. Cyst of kidney 271751696 N28.1 Simple bilateral cysts (2.4 and 1.8cm) noted on CT last yr. Morbid obesity 874400103 E66.01 complicate s care. Limited ambulation . Rheumatoid arthritis 698 54011 M06.9 Severe RA followed by Rheum. On hydroxychl oroquine and methotrexa te. Will be starting a stronger med, per patient, and stopping prednisone . Spinal cord disease 4851 2002 G95.9 with implanted intratheca l pump. She has complex pain with rectal/nori pain that has been very difficult to controll. Pain pump recently replaced. Retching [id number] R11.10 Intermitte nt dry heaving since her pump was replaced in May 2021 controlled with metoclopra mide 10mg 1 tab prn. Neurogenic urinary bladder 642965279 N31.9 Daily nitrofuran toin. Chronic ki dney disease stage 3 737235037 N18.30 GFR 43, f/b Dr Calvillo [id number] Frances Ayala . , [facility], [place]ICE [address] [place] [address] 12/23/2021 16:52:21 12/23/2021 17:53:46 Pressure injury of buttock 158859482 L89.309 phone visit, friend is caring for her. she states it is not deep, she is about to start Enbrel and should not have an infection, will try mupirocin with tegaderm with gauze covering it. call if not getting better. will need a face to face visit for VNA care. sleep on side, use lots of cushioning . [id number] MICHELE HARRELL PA-C , [facility], OFFICE [address] [place] [address] 02/10/2022 11:48:17 02/10/2022 13:29:34 Major depressive disorder 857048378 F32.0 Mood stable Heart failure 48486351 I 50.9 No signs of exacerbati on today Active or passive immunization 218571254 Z23 Recurrent urinary tract infection 037282662 N39.0 Agree to rx Bactrim regimen for first sign of UTI, pt states has already had 2 on Enbrel, if recurrent, will need to discuss with Rheum continuing enbrel, specimen cups for urine collection given to pt today to collect sample at home if this occurs, current plan based on difficulty pt expresses around getting to an apt for UTI eval and 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 Pt agrees will however contact office to advise if symptoms occur so orders can be placed to run urine and to follow symptoms Chronic pain 22516380 R5 2 Hydromorph one 2 mg BID, current Rx is for 30 however pt is now using BID every day, requests next Rx for 60 for the month Frances Ayala . MD VASQUEZ, [facility], OFFICE [address] [place] [address] 03/22/2022 14:55:55 03/28/2022 11:01:50 COVID-19 048947420 U07.1 A discussion regarding the use of Paxlovid treatment in the setting of COVID-19 infection was had with the patient.Th e patient qualifies for Paxlovid treatment. They are 12 years old or older and weight at least 40kg (88lbs). They have a positive COVID test (either PCR or antigen). Symptom onset was within 5 days. They do not have severe renal impairment (GFR >30). If the GFR is 30-60, the dose of the medication is reduced. eGFR >60: 300mg nirmatrelv ir (two 150mg tablets) with 100mg ritonavir (one tablet). All 3 tablets taken together twice daily for 5 days, with or without food. ? eGFR 30-60: 150mg nirmatrelv ir with 100mg ritonavir. Both tablets taken together twice daily for 5 days, with or without food. The patient was advised that the treatment is sent to a local pharmacy. We have checked availabili ty through this website: https://ww w.[employer].gov /info-deta ils/inform ation-for- providers- about-ther apeutic-tr eatments-f or-covid-1 9#covid-19 -therapeut ic-business systems analyst - This medication is authorized by the FDA for emergency use only. Data from clinical trials have shown that these treatments reduce the risk of ER visits, hospitaliz ation, and in patients with mild to moderate symptoms, and those at high risk of complicati ons. Side effects were discussed: 1. Allergic reactions are possible, notify the nurse with any concerning symptoms2. Liver problems ? notify your provider if you experience loss of appetite, yellowing of the skin or eyes, dark colored urine, or pale colored stools.3. Altered sense of taste4. Nausea5. High blood pressure6. Muscle aches7. This is medication is still being investigat ed so not all side effects are known at this time.8. Risks for or breastfeed ing women are currently unknown.9. This medication may interact with oral control options. Please use condoms or a barrier method while on this medication .Your provider has reviewed interactio ns with all of your medication s and the following need to be stopped or the dose reduced: xxxHow do I take PAXLOVID?P AXLOVID consists of 2 medicines: nirmatrelv ir and ritonavir. - Take 2 pink tablets of nirmatrelv ir with 1 white tablet of ritonavir by mouth 2 times each day (in the morning and in the evening) for 5 days. For each dose, take all 3 tablets at the same time.- If you have kidney disease, talk to your healthcare provider. You may need a different dose.- Swallow the tablets whole. Do not chew, break, or crush the tablets.- Take PAXLOVID with or without food.- Do not stop taking PAXLOVID without talking to your healthcare provider, even if you feel better.- If you miss a dose of PAXLOVID within 8 hours of the time it is usually taken, take it as soon as you remember. If you miss a dose by more than 8 hours, skip the missed dose and take the next dose at your regular time. Do not take 2 doses of PAXLOVID at the same time. Significan tly immunosupp ressed, on 4 meds that decrease immunity.G FR 53.Isolate and mask precaution s reviewed.R isk of rebound reviewed.T ylenol/flu ids/rest.M ed interactio n done, only med she needs to hold is simvastati n while on paxlovid.r each out with any concerns. Syndrome o f inappropriate vasopressin secretion 66773767 E22.2 managed by watching her diet and fluid intake. 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 Urinary tr act infectious disease 32546088 N39.0 has Bactrim at home, will take that, drop urine off at office soon before taking bactrim. [id number] MICHELE HARRELL PA-C , [facility], OFFICE [address] [place] [address] 08/04/2022 13:51:12 08/08/2022 08:04:43 Adult health examination 680179841 Z00.00 Declines colo or GI referral, is overdue, stool card given today for pt to consider, R/B discussedD eclines mammo, is overdue, R/B discussedB one density P at goal Depression screening 171 178976 Z13.31 depression screening tool administer ed, 0 Screening for alcohol abuse 749188302 Z13.39 Alcohol use screening tool administer ed, 0 Benign ess ential hypertension 7182201 I10 BP at goalC/t regimen Mixed hyperlipidemia 267 757348 E78.2 Simvastati n 10 mg Major depr essive disorder 965411820 F32.0 Mood stable Chronic ki dney disease stage 3 069586884 N18.30 GFR 43Declines nephro at this time Screening for malignant neoplasm of colon 548692723 Z12.11 Declines colo or GI referral, is overdue, stool card given today for pt to consider, R/B/A discussed Candidiasis of mouth 797 61107 B37.0 Will treat with Clotrimazo leF/u no improvemen t Complex re gional pain syndrome 034700334 G90.50 Hydromorph one 2 mg BIDon CSRP Rheumatoid arthritis 698 63523 M06.9 Now off Orencia, d/t major muscle spasm ADR after 3 dosesApt September 08 with new isabelle rhuem docOngoing ly symptomati c Recurrent urinary tract infection 876301543 N39.0 Agree to rx Bactrim for pt to have on hand for first sign of UTIPt has specimen cups for urine collection to return to lab prior to initiating abxCurrent plan based on difficulty pt expresses around getting to an apt for UTI eval and 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 Pt agrees will however contact office to advise if symptoms occur so orders can be placed to run urine and to follow symptomsOn prophy nitrofuran toin daily Morbid obesity 973784495 E66.01 BMI 35 Opioid dependence 770864 00 F11.20 Hydromorph one 2 mg BIDon CSRP [id number] CHIP SARABIA, [facility], OFFICE [address] [place] [address] 06/08/2022 10:54:22 06/16/2022 12:42:21 Chronic pain 54850111 R52 Hydromorph one 2 mg BIDCSRP contract signed today, scanned into chart, pt case sent to enroll, buccal obtained Long-term current use of opiate analgesic drug 1979371569 64108 Z79.891 BID sometimes, once/day sometimes Complex re gional pain syndrome 360035755 G90.50 Refill sent, next refill on CSRP [id number] CHIP SARABIA, [facility], OFFICE [address] [place] [address] 02/02/2023 10:39:00 02/03/2023 08:26:11 Adult health examination 296528048 Z00.00 EKG requested for med monitoring d/t abnormal EKG (? previous infarct) - staff called [facility] today to request f/u visit (scheduled 03/2023) for further eval - pt agrees with plan, no changes todaypt remains asymptomat ic Benign ess ential hypertension 3203431 I10 BP at goal office and homehasnt taken atenolol for a few monthsc/t monitor Intertrigo 70232040 L30. [address] Harris and using rx'ed topicals [id number] Fidelina Garcia er, [employer] OFFICER , [facility], OFFICE [address] [place] [address] 10/04/2022 14:13:49 10/04/2022 16:03:41 Urinary tract infectious disease 58858432 N39.0 Recurrent UTI, reports low BP at home, checked urine at home and + nitrites. urinalysis today with leuks. Pt typically takes nitrofuran toin daily for prophylaxi s, started bactrim today for treatment. -- will send in another bactrim prescripti on to have on hand-- culture ordered-- standing UA orderes in case symptoms in the future [id number] CHIP SARABIA, [facility], OFFICE [address] [place] [address] 11/09/2022 13:30:44 11/16/2022 09:16:43 Chronic pain 04414828 R52 Hydromorph one 2 mg BIDon CSRP Urinary tr act infectious disease 46986159 N39.0 s/s c/wwill treatcultu re pending Epilepsy 42322628 G40.90 9 Benign ess ential hypertension 0296253 I10 recent d/c atenolol d/t low BPswill watch BP at home, at goal today off BBc/t monitor [id number] Cora Merida CMA , [facility], OFFICE [address] [place] [address] 04/26/2023 10:26:42 04/26/2023 16:29:54 Neurogenic urinary bladder 048489857 N31.9 RF Chronic pain 67671303 R5 2 chronicfol lowed by pain management at for pump (bupivacai ne, hydromorph one, clonidine) sees RheumEmily Suarez manages dilaudid 2 mg 1 tab bid prnon csrp- previously with NMdrug screen today Long-term current use of opiate analgesic drug 4289176584 51092 Z79.891 chronicfol lowed by pain management at for pump (bupivacai ne, hydromorph one, clonidine) sees RheumEmily Suarez manages dilaudid 2 mg 1 tab bid prnon csrp- previously with NMdrug screen today Long-term drug therapy 821234897 Z79.899 chronicfol lowed by pain management at for pump (bupivacai ne, hydromorph one, clonidine) sees RheumEmily Suarez manages dilaudid 2 mg 1 tab bid prnon csrp- previously with NMdrug screen today Complex re gional pain syndrome 742855420 G90.50 chronicfol lowed by pain management at for pump (bupivacai ne, hydromorph one, clonidine) sees RheumEmily Suarez manages dilaudid 2 mg 1 tab bid prnon csrp- previously with NMdrug screen today Lumbar post-laminectomy syndrome 609578958 M96.1 chronicfol lowed by pain management at for pump (bupivacai ne, hydromorph one, clonidine) sees RheumEmily Suarez manages dilaudid 2 mg 1 tab bid prnon csrp- previously with NMdrug screen today Benign ess ential hypertension 9714974 I10 BP at goalc/w atenolol, lasix Spinal cord disease 4852 2002 G95.9 chronicfol lowed by pain management at for pump (bupivacai ne, hydromorph one, clonidine) sees Rheum- Dr Suarez manages dilaudid 2 mg 1 tab bid prnon csrp- previously with NMdrug screen today Rheumatoid arthritis 698 35148 M06.9 sero- negativesi gnificant ulnar deviation fingers R handmethot rexate with daily predjust started on leflunomid e but not tolerate (scalp pain)follo wed by Dr Pereira at [facility] Rheym Ulnar reymundo ation of hand 463299413 M21.839 R > Lfollowed by Rheum [id number] Tiffanie Starks NP , [facility], OFFICE [address] [place] [address] 08/22/2023 13:06:44 08/22/2023 14:54:21 Chronic pain 69679006 R52 chronicfol lowed by pain management at for pump (bupivacai ne, hydromorph one, clonidine) sees Rheum- Dr Suarez manages dilaudid 2 mg 1 tab bid prnon csrp- previously with NM Long-term current use of opiate analgesic drug 4117390762 58580 Z79.891 chronicfol lowed by pain management at for pump (bupivacai ne, hydromorph one, clonidine) sees Rheum- Dr Suarez manages dilaudid 2 mg 1 tab bid prnon csrp- previously with NM Urinary tr act infectious disease 07102023 N39.0 urinary frequency, urgency, incontinen ceunable to provide samplewill send order for UA/cx to local lab Long-term current use of drug therapy 085820137 Z79.899 Complex re gional pain syndrome 853384006 G90.50 chronicfol lowed by pain management at for pump (bupivacai ne, hydromorph one, clonidine) sees RheumEmily Suarez manages dilaudid 2 mg 1 tab bid prnon csrp- previously with NM Benign ess ential hypertension 6154437 I10 BP at goalc/w atenolol, lasix Lumbar post-laminectomy syndrome 616515675 M96.1 chronicfol lowed by pain management at for pump (bupivacai ne, hydromorph one, clonidine) sees Rheum- Dr Suarez manages dilaudid 2 mg 1 tab bid prnon csrp- previously withunable to do urine today Dysuria 92256609 R30.0 urinary frequency, urgency, incontinen ceunable to provide samplewill send order for UA/cx to local labdo not have someone to get meds for her quicklywil l send script if UA is + will be advised to start tx Screening mammography 24 155327 Z12.31 Continuous opioid dependence 693370746 F11.20 chronicfol lowed by pain management at for pump (bupivacai ne, hydromorph one, clonidine) sees Rheum- Dr Suarez manages dilaudid 2 mg 1 tab bid prnon csrp- previously withunable to do urine today Rheumatoid arthritis 698 84397 M06.9 sero- negativesi gnificant ulnar deviation fingers R handmethot rexate with daily predjust started on leflunomid e but not tolerate (scalp pain)follo wed by Dr Pereira at [facility] Rheym [id number] Tiffanie Starks NP FP, [facility], OFFICE [address] [place] [address] 12/28/2023 09:50:53 01/03/2024 08:33:45 Adult health examination 633170070 Z00.00 Depression screening 171 238308 Z13.31 depression screening tool administer edneg [id number] is good Screening for alcohol abuse 302571463 Z13.39 Alcohol use screening tool administer edneg audit Amputated toe 536632394 Z89.429 unchanged Chronic ki dney disease stage 3A 546036540 N18.31 stableavoi d nsaidsbp at goal Chronic pain 78817593 R5 2 chronicfol lowed by pain management at for pump (bupivacai ne, hydromorph one, clonidine) sees Rheum- Dr Suarez manages dilaudid 2 mg 1 tab bid prn - will be restarting on csrp- Complex re gional pain syndrome 155605022 G90.50 chronicfol lowed by pain management at for pump (bupivacai ne, hydromorph one, clonidine) sees Rheum- Dr Suarez manages dilaudid 2 mg 1 tab bid prn - will be restarting on csrp- 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 Has limited ROMcould benefit with VNA OT to help improve safety, security in her home, doing ADLs. Morbid obesity 875386659 E66.01 bmi 34.5 with chronic disease Neurogenic urinary bladder 446587338 N31.9 RF Opioid dependence 827570 00 F11.20 chronicfol lowed by pain management at for pump (bupivacai ne, hydromorph one, clonidine) sees [place]- Dr Suarez manages dilaudid 2 mg 1 tab bid prnon csrp-swab done today Rheumatoid arthritis 698 80031 M06.9 sero- negativesi gnificant ulnar deviation fingers R handmethot rexate with daily predjust started on leflunomid e but not tolerate (scalp pain)follo wed by Dr Pereira at [facility] Rhe Spinal cord disease 4852 2002 G95.9 chronicfol lowed by pain management at for pump (bupivacai ne, hydromorph one, clonidine) sees RheumEmily Suarez manages dilaudid 2 mg 1 tab bid prnon csrp- previously with NMdrug screen today Long-term current use of opiate analgesic drug 5753410616 05218 Z79.891 chronicfol lowed by pain management at for pump (bupivacai ne, hydromorph one, clonidine) sees Geoffrey Suarez manages dilaudid 2 mg 1 tab bid prnon csrp- previously with NM Long-term current use of drug therapy 310893465 Z79.899 [id number] Tiffanie tSarks NP , [facility], OFFICE [address] [place] [address] 07/09/2024 10:39:17 07/09/2024 13:41:09 Chronic pain 79789802 R52 chronicfol lowed by pain management at for pump (bupivacai ne, hydromorph one, clonidine) sees Geoffrey Suarez manages dilaudid 2 mg 1 tab bid prnon csrp- Long-term current use of opiate analgesic drug 1886748801 37823 Z79.891 chronicfol lowed by pain management at for pump (bupivacai ne, hydromorph one, clonidine) sees Geoffrey Suarez manages dilaudid 2 mg 1 tab bid prnon csrp- Complex re gional pain syndrome 415146659 G90.50 chronicfol lowed by pain management at for pump (bupivacai ne, hydromorph one, clonidine) sees Geoffrey Suarez manages dilaudid 2 mg 1 tab bid prnon csrp- Benign ess ential hypertension 3520348 I10 BP at goal at last visitc/w atenolol, lasixdue for labs Lumbar post-laminectomy syndrome 648399532 M96.1 chronicfol lowed by pain management at for pump (bupivacai ne, hydromorph one, clonidine) sees Geoffrey Suarez manages dilaudid 2 mg 1 tab bid prnon csrp- previously withunable to do urine today Continuous opioid dependence 342782760 F11.20 chronicfol lowed by pain management at for pump (bupivacai ne, hydromorph one, clonidine) seecassandra Suarez manages dilaudid 2 mg 1 tab bid prnon csrp- Rheumatoid arthritis 698 72331 M06.9 sero- negativesi gnificant ulnar deviation fingers R handmethot rexate with daily predjust started on leflunomid e but not tolerate (scalp pain)follo wed by Dr Pereira at [facility] Rheym Immunizati on education 772187629 Z71.85 Patient states she is UTD w/Flu Vaccine for [id number] Margarito King MD , [facility], [address]ICE [address] [place] [address] 07/19/2024 16:20:39 07/22/2024 10:14:38 Eruption 351851321 R21 4 shallow abscesses in various stages, placed laterally at each breastshe points out a lesion at its early stage- appears as pea size eczematous lesionthen pustule then superficia lly ulcerates and heals as pawan size lesions she never wears a bra and nothin gnew contacts these outer folds of each breastno sign of co-present submammary fungal change appear to be staph or strep eruptionsl ets perform total body cleanse with hibiclensI encouraged her to begin the cephalexin at TIDand i added topical mupirocin for her to treat each active lesion [id number] Tiffanie Starks NP , [facility], [address]ICE [address] [place] [address] 08/12/2024 15:07:43 08/15/2024 08:28:12 Complex regional pain syndrome 732395897 G90.50 chronicfol lowed by pain management at for pump (bupivacai ne, hydromorph one, clonidine) sees Rheum- Dr Suarez manages dilaudid 2 mg 1 tab bid prnon csrp-- spinal stimulator has failed 2nd to battery; in process of seeking approval for replacemen t. pain has worsened w/o benefit of stimluator . Still on pain pump managed by . Agree to increase hydromorph one 2 mg from bid to tid while awaiting stimulator . RF sent Lumbar post-laminectomy syndrome 347620343 M96.1 chronicfol lowed by pain management at for pump (bupivacai ne, hydromorph one, clonidine) sees Rheum- Dr Suarez manages dilaudid 2 mg 1 tab bid prnon csrp-- spinal stimulator has failed 2nd to battery; in process of seeking approval for replacemen t. pain has worsened w/o benefit of stimluator . Still on pain pump managed by HH. Agree to increase hydromorph one 2 mg from bid to tid while awaiting stimulator . RF sent Goals Section Goal Description Progress Status Start Date LastModified by Organization Details LastModified Time Quality of Life Maintain positive quality of life in both physical and mental health Progressing active 2020 Jacquelyn Ricks RN Information not available 06/13/2023 20:37:27 Eat Healthy Maintain a healthy diet by eating three meals a day, not skipping meals, and avoiding binge eating Progressing active 2020 Jacquelyn Ricks RN Information not available 06/13/2023 20:37:31 Active Range of Motion Demonstrates normal or improved active range of motion as defined by care team Ramana active 2021 Jacquelyn Ricks RN Information not available 12/22/2021 17:32:23 Passive Range of Motion Demonstrates normal or improved passive range of motion as defined by care team Ramana active 2021 Jacquelyn Ricks RN Information not available 12/22/2021 17:32:23 Activiti es of Daily Living Performs activities of daily living independently or with minimal assistance NoChange active 2021 Jacquelyn Ricks RN Information not available 12/22/2021 17:32:23 Diet Adherenc e Follows prescribed or recommended diet NoChange active 2021 Jacquelyn Ricks RN Information not available 12/22/2021 17:32:24 Joint Preserva tion Exhibits no signs of increasing joint damage or deformity NoChange active 2021 Jacquelyn Ricks RN Information not available 12/22/2021 17:32:24 Control Disease Progress ion Exhibits signs of improved disease progression or disease remission NoChange active 2021 Jacquelyn Ricks RN Information not available 12/22/2021 17:32:25 Health Concerns Section Related Observation LastModified by Organization [facility] LastModified Time Disability Not Available Not Available Not Available Concern Status LastModified by Organization Details LastModified Time rheumatoid arthritis Active [facility] PATCH Not Available 01/25/2023 09 :00:53 chronic pain syndrome Active [facility] PATCH Not Available 01/25/2023 09 :00:53 major depressive disorder Active [facility] PATCH Not Available 01/25/2023 09 :00:53 Advance Directives Directive Y: will bring a copy in 03/22 Payers Encounter Date Sequence Insurance Name Policy Number Policy [place] Covered Member ID [place] Member ID Guarantor Name 08/22/2023 2 [place] [id number] Grace Mckeon [id number] Grace Mclaughlinn 08/22/2023 1 [place] Grace Mckeon [id number] Grace Mclaughlinn 12/28/2023 2 [place] [id number] Grace Mckeon [id number] Grace Mclaughlinn 12/28/2023 1 [place] Grace Mckeon [id number] Grace Mclaughlinn 07/09/2024 2 [place] [id number] Grace Mckeon [id number] Grace Limaonan 07/09/2024 1 [place] Grace Mckeon [id number] Grace Limaonan 07/19/2024 2 [place] [id number] Grace Mckeon [id number] Grace Mclaughlinn 07/19/2024 1 [place] Grace Mckeon [id number] Grace Mclaughlinn 08/12/2024 2 [place] [id number] Grace Mckeon [id number] Grace Mclaughlinn 08/12/2024 1 [place] Grace Mckeon [id number] Grace Mckeon Notes Date Note Type Note Provider Name and Address Organization Details Recorded Time 4 text/html [facility]-Chronic Pain 2Reported bypatient.Duration:Chronic pain began >5years ago (1979); Pain is intermittent with periods of improvement and flaresof worsening pain Context:Pain is due to degenerative joint disease; Patient has chronic low back pain; Patient has chronic pain syndrome valerie Aggravating factors:activity Providers Involved in Patient CarePatient has previously seen ,, in managing pain brain in breast x few daysside of breast , hurts to touchno rash or skin changeslast mammo 2018 L lower leg painful to slight touchno discolorationno swellingdid hit leg on wheelchair a week ago urinary incontinence, increased frequency. failed back syndromesevere arthritison stimulatoron pump -managed by [facility] - Dr. Kumar sees Dr Pereira for Rheum Tiffanie Starks NP [address] [place], [address], [facility] 08/22/2023 14:45:16 4 text/html Physical Exam/FemaleReported bypatient.PHAPatient is here for a Wellness Visit. She describes her health status as fair. Patient's health is the same as last year.Risk Assessment and Lifestyle Change Counseling (Medicare)Reported bypatient.Safety Risk Assessment:Has grab bars in bathroom; Has rails on steps; No falls Functional Status:Patient does not have trouble hearing the television or radio when others do not.; Patient does not have to strain or struggle to hear/understand conversations;Patient needs help with preparing meals,transportation, shopping, taking medicines, managing finances, or other activities of daily living.; Patient does not have visual loss that interferes with daily activities;Lives alone;Patient was unsteady or takes longer than 30 seconds during the timed get up and go test.; Patient reports no falls in the past 6 months.; using a wheelchair 8-8-24 kb Diet:Counseled about eating a diet low in trans and saturated fats and high in fiber, fruits and vegetables Safety:An audit alcohol screening was performed and scored. Patient was asked about alcohol use. Advised about risks of alcohol. Personal risk was assessed. Patient agreed to plan and given information about available resources if needed. Discussion including screening and scoring greater than 7.5 minutes.. VMG HyperlipidemiaReported bypatient.Duration:chronic Control:well controlledVMG HypertensionReported bypatient.Control:Patient understands medications are to lower blood pressure Compliance:Compliant with medications worsening strength both upper and lowerdifficulty managing adls- does have some help but less strength makes managing bathroom, home more difficult Tiffanie Starks NP [address] [place], [address], [facility] 02/09/2024 14:35:16 5 text/html aVMG-Chronic Pain 2Reported bypatient.Duration:Chronic pain began >5years ago (1979); Pain is intermittent with periods of improvement and flaresof worsening pain Context:Pain is due to degenerative joint disease; Patient has chronic low back pain; Patient has chronic pain syndrome valerie Aggravating factors:activity Pain impacts on functionality:Patient is capable of the following activities pain free:nothing-has pain even lying still ,;Pain interferes with sleep;Pain interferes with physical activity Providers Involved in Patient CarePatient has previously seen ,, in managing pain failed back syndromesevere arthritison stimulator- problems with it - may need to be replaced- has upcoming appton pump -managed by [facility] - Dr. Hallman in legs, hands cervical pain, seen by [facility]- injection did not help sees Dr Pereira for Rheum asthma was acting up but is better nownebulizer helpsno fever Tiffanie Starks NP [address] [place], [address], [facility] 07/09/2024 12:07:24 5 text/html worsening pain- spinal cord stimulator lost battery and needs be replacedstill has pain pump[facility] - hypertensive d/t pain - given increased dose of hydromorphone to 4 mgnot taking any meds Tiffanie Starks NP [address] [place], [address], [facility] 08/13/2024 10:25:18 OBGyn Episode No OBEpisode recorded.
--- OUTSIDE RECORDS SUMMARY | 2024-08-28 14:26 | XMS_ITS | Clinical Summary ---
Author Organization [facility] Facility Address [address] [place] [address] Care Team Providers Care Front Office Attendant Name Role Phone Nam Gordon PA-C Primary Care Provider [phone] [phone] Social History Tobacco Use Types Packs/Day Years [...] of 2 - PCV) 1956 Influenza Vaccine (Season Ended) 2025 03/17/20 17 Hepatitis B Vaccine Aged Out No longe r eligible based on patient's age to complete this topic Insurance MEDICARE [facility] Care Teams Front Office Attendant Relationship Specialty Start Date End Date Nam Gordon PA-C [address] [place] [address] PCP - General 03/26/19
[2024-09-04 08:23] VITALS: BMI 38.4
--- NOTE | 2024-09-05 09:05 | HO.ANESPROP2 ---
Documented by User: Ricarda Carcamo NP 09/05/24 09:10 HPI - Anesthesia Eval Consult details Narrative: 74yo F for Removal and Replacement of Spinal Cord Stimulator, Possible Removal of Leads from Sacral Stimulator Prednisone 10mg daily Chronic opioids PMFSH Active Problems Active Problems: All Active Problems S/P insertion of sacral nerve stimulator (Acute) Spinal cord stimulator dysfunction (Acute) Osteoarthritis (arthritis due to wear and tear of joints) (Acute) Other cervical disc degeneration, unspecified cervical region (Acute) Other intervertebral disc degeneration, lumbar region (Acute) Idiopathic gout, unspecified site (Acute) Chronic pain syndrome (Acute) Past Medical History Medical History (Updated 09/04/24 @ 11:04 by Yeni Negron RN) Urge incontinence Osteoporosis Chronic renal insufficiency GERD (gastroesophageal reflux disease) HTN (hypertension) Depression Rheumatoid arthritis Osteoarthritis (arthritis due to wear and tear of joints) Other cervical disc degeneration, unspecified cervical region Other intervertebral disc degeneration, lumbar region Idiopathic gout, unspecified site Chronic pain syndrome Family History Family history of problems with anesthesia: No Surgical History Surgical History (Updated 09/04/24 @ 11:04 by Yeni Negron RN) History of bunionectomy H/O colonoscopy Hx of appendectomy History of amputation History of surgery History of surgery History of Problems with Anesthesia: No Social History Social History Patient Tobacco Use Status: Former Tobacco user Second Hand Smoke Exposure: No Are you DNR?: No Advance Directives: No Advance Directives Information Provided: Yes Meds Allergies Allergy/AdvReac Type Severity Reaction Status Date / Time adhesive tape Allergy Unknown Unknown Verified 08/08/24 10:55 levofloxacin [Levaquin] Allergy Unknown unknown Verified 08/08/24 10:55 nortriptyline Allergy Unknown unknown Verified 08/08/24 10:55 vancomycin Allergy Unknown unknown Verified 08/08/24 10:55 Home Medications ?Medication ?Instructions ?Recorded ?Confirmed ?Last Taken ?Type alendronate 70 mg tablet 70 mg PO QWEEK 05/06/20 09/04/24 Unknown History atenolol 50 mg tablet 50 mg PO DAILY 05/06/20 09/06/24 09/06/24 05:00 History desonide 0.05 % topical cream 1 appl topical DAILY 05/06/20 09/04/24 Unknown History duloxetine 30 mg capsule,delayed 30 mg PO BID PRN pain 05/06/20 09/04/24 Unknown History release furosemide 40 mg tablet 60 mg PO DAILY 05/06/20 09/04/24 Unknown History hydromorphone 2 mg tablet 2 mg PO BID PRN Pain 05/06/20 09/04/24 Unknown History modafinil 200 mg tablet 200 mg PO DAILY 05/06/20 09/04/24 Unknown History oxcarbazepine 150 mg tablet 300 mg PO BID 05/06/20 09/04/24 Unknown History topiramate 100 mg tablet 100 mg PO BID 05/06/20 09/04/24 Unknown History albuterol sulfate 90 mcg/actuation 2 puff inhalation Q4H PRN 08/08/24 09/06/24 Unknown History aerosol inhaler Shortness Of Breath Or Wheezing folic acid 1 mg tablet 1 mg PO DAILY 08/08/24 09/04/24 Unknown History hydroxychloroquine 200 mg tablet 200 mg PO BID 08/08/24 09/04/24 Unknown History mupirocin 2 % topical ointment 1 appl topical BID-TID 08/08/24 Unknown History nitrofurantoin macrocrystal 50 mg 50 mg PO DAILY 08/08/24 09/06/24 Unknown History capsule prednisone 10 mg tablet 10 mg PO DAILY 08/08/24 09/06/24 Unknown History simvastatin 10 mg tablet 10 mg PO BEDTIME 08/08/24 09/04/24 Unknown History sulfasalazine 500 mg tablet 1,000 mg PO BID 08/08/24 09/04/24 Unknown History topiramate 100 mg tablet 200 mg PO BEDTIME 09/04/24 09/04/24 Unknown History Exam Height,Weight and Vital Signs: Height 4 ft 11 in Weight 86.183 kg Assessment and Plan Assessment Anesthesia Assessment: Chart Reviewed Final Anesthetic Review Family History of Problems with Anesthesia: No History of Problems with Anesthesia: No Documented by User: Freddy Murillo MD 09/06/24 07:40 HPI - Anesthesia Eval Consult details Narrative: 74yo F for Removal and Replacement of Spinal Cord Stimulator (battery change). Prednisone 10mg daily Chronic opioids PMFSH Past Medical History Medical History (Updated 09/04/24 @ 11:04 by Yeni Negron RN) Urge incontinence Osteoporosis Chronic renal insufficiency GERD (gastroesophageal reflux disease) HTN (hypertension) Depression Rheumatoid arthritis Osteoarthritis (arthritis due to wear and tear of joints) Other cervical disc degeneration, unspecified cervical region Other intervertebral disc degeneration, lumbar region Idiopathic gout, unspecified site Chronic pain syndrome Surgical History Surgical History (Updated 09/04/24 @ 11:04 by Yeni Negron RN) History of bunionectomy H/O colonoscopy Hx of appendectomy History of amputation History of surgery History of surgery Social History Social History Patient Tobacco Use Status: Former Tobacco user Second Hand Smoke Exposure: No Are you DNR?: No Advance Directives: No Advance Directives Information Provided: Yes Meds Allergies Allergy/AdvReac Type Severity Reaction Status Date / Time adhesive tape Allergy Unknown Unknown Verified 08/08/24 10:55 levofloxacin [Levaquin] Allergy Unknown unknown Verified 08/08/24 10:55 nortriptyline Allergy Unknown unknown Verified 08/08/24 10:55 vancomycin Allergy Unknown unknown Verified 08/08/24 10:55 Home Medications ?Medication ?Instructions ?Recorded ?Confirmed ?Last Taken ?Type alendronate 70 mg tablet 70 mg PO QWEEK 05/06/20 09/04/24 Unknown History atenolol 50 mg tablet 50 mg PO DAILY 05/06/20 09/06/24 09/06/24 05:00 History desonide 0.05 % topical cream 1 appl topical DAILY 05/06/20 09/04/24 Unknown History duloxetine 30 mg capsule,delayed 30 mg PO BID PRN pain 05/06/20 09/04/24 Unknown History release furosemide 40 mg tablet 60 mg PO DAILY 05/06/20 09/04/24 Unknown History hydromorphone 2 mg tablet 2 mg PO BID PRN Pain 05/06/20 09/04/24 Unknown History modafinil 200 mg tablet 200 mg PO DAILY 05/06/20 09/04/24 Unknown History oxcarbazepine 150 mg tablet 300 mg PO BID 05/06/20 09/04/24 Unknown History topiramate 100 mg tablet 100 mg PO BID 05/06/20 09/04/24 Unknown History albuterol sulfate 90 mcg/actuation 2 puff inhalation Q4H PRN 08/08/24 09/06/24 Unknown History aerosol inhaler Shortness Of Breath Or Wheezing folic acid 1 mg tablet 1 mg PO DAILY 08/08/24 09/04/24 Unknown History hydroxychloroquine 200 mg tablet 200 mg PO BID 08/08/24 09/04/24 Unknown History mupirocin 2 % topical ointment 1 appl topical BID-TID 08/08/24 Unknown History nitrofurantoin macrocrystal 50 mg 50 mg PO DAILY 08/08/24 09/06/24 Unknown History capsule prednisone 10 mg tablet 10 mg PO DAILY 08/08/24 09/06/24 Unknown History simvastatin 10 mg tablet 10 mg PO BEDTIME 08/08/24 09/04/24 Unknown History sulfasalazine 500 mg tablet 1,000 mg PO BID 08/08/24 09/04/24 Unknown History topiramate 100 mg tablet 200 mg PO BEDTIME 09/04/24 09/04/24 Unknown History Exam Airway Mallampati Class: II TM Dist: <=3cm Neck ROM: Full Denture: Upper and Lower Heart: ok Lungs: ok Assessment and Plan Assessment Anesthesia Assessment: Anesthesia Plan Discussed Final Anesthetic Review NPO: Yes ASA Class: III and IV Final Preanesthetic Review: No Changes in Pt Med Stat, Meds/Allgs Chart Reviewed, Consent Obtained/Reviewed and Anes Risks/Benef Reviewed Patient Risk: High Procedure Risk: Intermediate Anesthetic Plan Anesthetic Plan: MAC: and TIVA Disposition: Standard PACU
[2024-09-06] VITALS (16 sets, daily range): BP systolic 113–173; BP diastolic 48–93; PULSE 82–113; RESP 16–18; TEMP 36.4–36.7; O2SAT 94–98
--- NOTE | ~2024-09-06 | FL_ITS ---
EXAMINATION: FLUOROSCOPY GUIDANCE FOR NEEDLE PLACEMENT CLINICAL INFORMATION: removal and replacement of spinal cord stimulator COMPARISON: June 04, 2021. TECHNIQUE: Static image obtained and the right lower hemisacrum for fluoroscopy guidance during a removal and replacement of spinal cord stimulator. Single image obtained. FINDINGS: Metallic reservoir in the periphery of the right gluteal region and electrodes overlapping the right iliac bone. There is a electrodes overlapping the right left S2 and S3 levels. FLUOROSCOPY TIME: 3.6 seconds. DOSE AREA PRODUCT: 0.4561 uGy-m2 (microgray-meter squared) FL/FL guidance in OR IMPRESSION: Fluoroscopy guidance for a removal and replacement of spinal cord stimulator. Please refer to the operating note. Electronically signed by: Javier Mai MD 09/06/2024 09:44 AM EDT
--- NOTE | 2024-09-06 07:22 | MHC.SHP ---
Pre-Procedural Eval Section A - 24 Hr Update-Section A only Date of Service: 09/06/24 The patient is an INPATIENT: No Changes since office visit: Yes Patient answered all questions The patient has been examined within 24 hours of the surgical procedure. The History & Physical has been completed within 30 days and I have reviewed it.: No Section B - Complete if H&P > 30 days Chief Complaint: Other mechanical complication of implanted stimula Details of Present Illness: chronic pain syndrome Relevant Family History (Specify if Yes): No Relevant Social History: None Present Medications: see Short Stay Collaborative assessment Medical History: No relevant PMH History of Previous Operations: Relevant previous surgery/procedure and date(s) Allergies: Allergies Allergy/AdvReac Type Severity Reaction Status Date / Time adhesive tape Allergy Unknown Unknown Verified 08/08/24 10:55 levofloxacin [Levaquin] Allergy Unknown unknown Verified 08/08/24 10:55 nortriptyline Allergy Unknown unknown Verified 08/08/24 10:55 vancomycin Allergy Unknown unknown Verified 08/08/24 10:55 Review of Systems Sugical H&P ROS: Negative: Cardiovascular, Respiratory, Neurological, Psychiatric, Hem-Onc, Allergic/Immunologic, Gastrointestinal, Genitourinary, Integumentary, Endocrine and Eyes/Ears/Nose/Throat and Yes, Specify: Constitution (morbid obesity) and Musculoskeletal (gout arthritis) Exam Surgical H&P Exam: Normal: HEENT, Normal: Heart, Normal: Lungs, Normal: Extremities, Normal: Abdomen, Normal: Skin and Normal: Neurological Plan Diagnosis/Plan: Unchanged I have reviewed the history and physical and performed a pertinent physical examination on my patient. No changes have occurred unless specified. Time Spent With Patient Time: Total time managing care of this patient today __5__ minutes.
--- NOTE | 2024-09-06 07:36 | PC.NURSE ---
Dr. Murillo made aware pt has ring on L ring finger, unable to physically take off. Waiver signed and placed on chart.
[2024-09-06] MEDS: ceFAZolin Sodium/Dextrose,Iso 2 GM/50 ML PIGGYBACK IV (07:51)
--- NOTE | 2024-09-06 09:03 | PM.OP ---
Brief Operative Note Date of Service: 09/06/24 Pre-op diagnosis: End of life of IPG of the spinal cord stimulator [facility] Post-op diagnosis: same Procedure: Removal and replacement of spinal cord stimulator IPG Implants: New IPG battery [facility] Surgeon: Edmond Kumar MD Anesthesia: GLMA Was an Wildlife Conservationist used for this Procedure?: No Estimated blood loss (mL): 8 Condition: stable Disposition: PACU
--- NOTE | 2024-09-06 09:05 | P.OP_ITS ---
Operative Note Operative Note Date of Service: 09/06/24 Narrative: Removal and replacement of IPG spinal cord stimulator system [facility]. Informed consent was thoroughly explained to the patient. Risks and benefits were explained. The patient expressed understanding. Previously the decision was made to remove and replace spinal cord stimulator and possibly attempts to remove the [employer] epidural leads from the patient's sacral position however today patient reported that her device was partially moved because of the infection. It is still possible that those leads have indolent infection on them. The decision was made not to touch the leads. The patient came to the operating room and positioned prone on the operating table [employer] monitors were applied and patient was induced with general anesthesia and LMA. Time-out was performed delineating name and date of of the patient , side and site of the procedure, need for antibiotic prophylaxis, patient received 2 g of cefazolin before the procedure. Also stated DVT prophylaxis need and risk of fire. The low back was prepped with ChloraPrep and draped with sterile full-body drape including Ioban film. The IPG battery was located under the patient's skin on the left upper buttock and the incision was made alongside the previous scar. Thorough hemostasis was obtained, the pocket of the battery was incised using Metzenbaum scissors and after that the old IPG battery was located in the wound and delivered to the level of the skin. It was disconnected from the leads, the leads were connected to the testing device and appeared to be intact. The new battery was obtained and leads were connected to the new battery. The screwdriver was used on the fixation screws until 3 clicks were heard. The wound was irrigated with normal saline, the anchoring sutures were applied on most superior medial and most superior lateral corners of the wound. The battery was connected to the anchoring sutures, it was dislodged into the subcutaneous pocket and after that the sutures were tied. Irrigation was repeated. After that 0-0 Polysorb was used to close the wound. 2-0 Polysorb was used to approximate the level of the skin and 6 luci were used to applied to the level of the skin sterile dressing was applied using 4 x 4 and Tegaderm. The patient tolerated procedure well.
[2024-09-06] MEDS: fentaNYL citrate/PF 100 MCG/2 ML VIAL 50 MCG IVPUSH ×4 (09:20→09:35)
== END 2024-09-06 10:53 | disposition home or self-care (01) ==
PROVIDERS: PCP Nurse Practitioner Adult Health; Visit Provider Anesthesiology
PROC: (CPT 63685; principal; 2024-09-06 07:30)
DX: T85.193A Other mechanical complication of implanted electronic neurostimulator, generator, initial encounter (principal); Y75.8 Miscellaneous neurological devices associated with adverse incidents, not elsewhere classified; G89.4 Chronic pain syndrome; M79.605 Pain in left leg; M79.604 Pain in right leg; Z79.52 Long term (current) use of systemic steroids; Z79.899 Other long term (current) drug therapy; Z88.1 Allergy status to other antibiotic agents; Z88.8 Allergy status to other drugs, medicaments and biological substances; L23.1 Allergic contact dermatitis due to adhesives; Z96.89 Presence of other specified functional implants
CPT/HCPCS: 63685; C1713; C1820; J0690; J0736; J1171; J2003; J2250; J2405; J2704; J2795; J3010; J3370

== ENCOUNTER → 2024-09-06 05:46 | Outpatient (BNV) | payer MEDICARE, SELFPAY | PROVIDERS: PCP Nurse Practitioner Adult Health; Visit Provider Anesthesiology | DX: T85.112A Breakdown (mechanical) of implanted electronic neurostimulator of spinal cord electrode (lead), initial encounter (principal) | CPT/HCPCS: 63685 ==

== ENCOUNTER 2024-09-12 11:22 | Outpatient (AMB) | payer MEDICARE, SELFPAY ==
[2024-09-12 11:39] VITALS: BP 162/85; PULSE 102; O2SAT 94; BMI 41.4
--- NOTE | 2024-09-12 11:39 | A.OFFVIS_ITS ---
Vital Signs 09/12/24 11:39 Height 4 ft 11 in Weight 205 lb BMI 41.4 BP 162/85 H Blood Pressure Location Rt brachial Position Sitting Pulse 102 H Pulse Source Pulse Oximeter Pulse Oximetry (%) 94 Oxygen Delivery Method Room Air Intake Visit Reasons: S/p [facility]CS Removal and Replacement 09/06/24 Shuttleless Loom Weaver Required: No Allergies adhesive tape Allergy (Unknown, Verified 09/12/24 11:41) Unknown levofloxacin [Levaquin] Allergy (Unknown, Verified 09/12/24 11:41) unknown nortriptyline Allergy (Unknown, Verified 09/12/24 11:41) unknown vancomycin Allergy (Unknown, Verified 09/12/24 11:41) unknown Medication List - Last Reconciled 09/12/24 by Richelle Corado, PEARL CUTTER albuterol sulfate 90 mcg/actuation 2 puffs inhalation Q4H PRN alendronate 70 mg PO QWEEK atenolol 50 mg PO DAILY cephalexin 500 mg PO Q8H 14 days desonide 0.05% 1 appl topical DAILY duloxetine 30 mg PO BID PRN folic acid 1 mg PO DAILY furosemide 60 mg PO DAILY hydromorphone (Dilaudid) 4 mg PO Q6H PRN hydromorphone 2 mg PO BID PRN hydromorphone 2 mg PO Q6H PRN 6 days MDD 4 pills hydroxychloroquine 200 mg PO BID modafinil 200 mg PO DAILY mupirocin 2% 1 appl topical BID-TID nitrofurantoin macrocrystal 50 mg PO DAILY oxcarbazepine 300 mg PO BID prednisone 10 mg PO DAILY simvastatin 10 mg PO BEDTIME sulfasalazine 1,000 mg PO BID topiramate 200 mg PO BEDTIME topiramate 100 mg PO BID HPI Comments Details: Grace is back in my office to discuss the results of the x-rays. She has had surgically implanted [email or web address] spinal cord stimulator which is not working at this time. She came to me with request to remove and replace spinal cord stimulator [email or web address] battery. The dressing was removed today. The site was washed with ChloraPrep. There is no redness, no local temperature increase, no swelling, no pathological discharge, no tenderness on palpation. Sterile dressing was applied. The patient recommended to come next week for staple removals. [email or web address] insurance service representative Adolph Andre was here today with the patient adjusting the stimulation. Prior: c/o losing stimulation of spinal cord stimulator. Apparently this is [facility] spinal cord stimulator. Was implanted 10 years ago. She was told the device require replacement. She is also receiving for her chronic pain intrathecal pain pump treatment with hydromorphone delivered to the CSF. In 2018 she came to this office with a request to continue prescribing her intrathecal pain medications. I took over her prescription, she continued to receive pump [facility]. ON LICENSE OF [facility] Medical History (Updated 09/04/24 @ 11:04 by Yeni Negron RN) Urge incontinence Osteoporosis Chronic renal insufficiency GERD (gastroesophageal reflux disease) HTN (hypertension) Depression Rheumatoid arthritis Osteoarthritis (arthritis due to wear and tear of joints) Other cervical disc degeneration, unspecified cervical region Other intervertebral disc degeneration, lumbar region Idiopathic gout, unspecified site Chronic pain syndrome Surgical History (Updated 09/04/24 @ 11:04 by Yeni Negron RN) History of bunionectomy H/O colonoscopy Hx of appendectomy History of amputation History of surgery History of surgery Social History Comment: counts correct Patient Tobacco Use Status: Former Tobacco user Second Hand Smoke Exposure: No Review of Systems Const All systems reviewed & are unremarkable except as noted in HPI and below Physical Exam Vital Signs: Last Vital Signs Pulse 102 H 09/12/24 11:39 BP 162/85 H 09/12/24 11:39 Pulse Ox 94 09/12/24 11:39 Oxygen Delivery Method Room Air 09/12/24 11:39 BMI result Body Mass Index 41.4 No acute distress comfortable in the stretcher vital signs stable afebrile normotensive Const General: cooperative Nutritional Appearance: obese Neck Neck: Yes normal visual inspection Resp Effort & Inspection: normal respiratory effort Cardio Jugular venous distension: no JVD GI Inspection: Yes normal to inspection Back/Spine/Pelvis Cervical Spine: normal cervical lordosis Assessment & Plan Assessment & Plan (1) Spinal cord stimulator dysfunction: Code(s): T85.192A - Other mechanical complication of implanted electronic neurostimulator of spinal cord electrode (lead), initial encounter Category: Medical (2) S/P insertion of sacral nerve stimulator: Code(s): Z96.89 - Presence of other specified functional implants Category: Surgical Plan The procedure of removal and replacement of the [email or web address] battery was performed. I decided not to remove the stimulator remnants of the sacral stimulation because patient reported that it was removed because of the infection. I did not want to compromise current battery implantation with potential indolent infection from the remnants of the sacral stimulator device. If patient would like to in the future I can remove those 2 remnant leads. Unfortunately this will not help the patient to go for the MRI because according to the patient in the past she had some fracture treated with hardware and since then she can not go to MRI because of that. Counseling was done on hygiene limitations, mobility and activities limitations, abdominal binder. Coding Level of Care Code Est Pt Level 3 (97969) Diagnoses Spinal cord stimulator dysfunction T85.192A S/P insertion of sacral nerve stimulator Z96.89
--- OUTSIDE RECORDS SUMMARY | 2024-09-12 13:37 | XMS_ITS | Clinical Summary ---
Author Organization [facility] Facility Address [address] [place] [id number] Care Team Providers Care Erco Machine Operator Name Role Phone Nam Gordon PA-C Primary Care Provider [phone] [phone] Social History Tobacco Use Types Packs/Day Years [...] Due Date Last Done Comments Pneumococcal Vaccine: 50+ Ye ars (1 of 2 - PCV) 1969 Influenza Vaccine (Season Ended) 2025 03/17/20 17 Hepatitis B Vaccine Aged Out No longe r eligible based on patient's age to complete this topic Insurance Medicare [facility] Care Teams Erco Machine Operator Relationship Specialty Start Date End Date Nam Gordon PA-C [address] [place] [address] PCP - General 03/26/19
== END 2024-09-12 11:53 | disposition home or self-care (01) ==
LOC: HO.PMC 11:23
PROVIDERS: PCP Nurse Practitioner Adult Health; Visit Provider Anesthesiology
DX: T85.192A Other mechanical complication of implanted electronic neurostimulator of spinal cord electrode (lead), initial encounter (principal); Z96.89 Presence of other specified functional implants
CPT/HCPCS: 99024

== ENCOUNTER → 2024-09-12 11:22 | Outpatient (BNVA) | payer MEDICARE, SELFPAY | PROVIDERS: PCP Nurse Practitioner Adult Health; Visit Provider Anesthesiology | DX: T85.192A Other mechanical complication of implanted electronic neurostimulator of spinal cord electrode (lead), initial encounter (principal); Z96.89 Presence of other specified functional implants | CPT/HCPCS: 99212 ==

== ENCOUNTER 2024-09-19 11:13 | Outpatient (AMB) | payer MEDICARE, SELFPAY ==
--- NOTE | 2024-09-19 11:40 | A.OFFVIS_ITS ---
Vital Signs 09/19/24 11:41 Height 4 ft 11 in Weight 205 lb BMI 41.4 Intake Visit Reasons: S/p Blas SCS Removal and Replacement 09/06/24 Principal Architect Required: No Accompanied by: Family/Other Allergies adhesive tape Allergy (Unknown, Verified 09/19/24 11:41) Unknown levofloxacin [Levaquin] Allergy (Unknown, Verified 09/19/24 11:41) unknown nortriptyline Allergy (Unknown, Verified 09/19/24 11:41) unknown vancomycin Allergy (Unknown, Verified 09/19/24 11:41) unknown HPI Comments Details: Grace is back in my office to discuss the results of the x-rays. She has had surgically implanted [employer] spinal cord stimulator which is not working at this time. She came to me with request to remove and replace spinal cord stimulator [employer] battery. The dressing was removed today. The site was washed with ChloraPrep. There is no redness, no local temperature increase, no swelling, no pathological discharge, no tenderness on palpation. The luci were removed today. Sterile dressing was applied. [employer] enrollment representative was here today with the patient adjusting the stimulation. Prior: c/o losing stimulation of spinal cord stimulator. It is [employer] spinal cord stimulator. New battery was inserted on 09/06/2024. She is also receiving for her chronic pain intrathecal pain pump treatment with hydromorphone delivered to the CSF. In 2019 she came to this office with a request to continue prescribing her intrathecal pain medications. I took over her prescription, she continued to receive pump refills with [facility] local nurse. [facility] Medical History (Updated 09/04/24 @ 11:04 by Yeni Negron RN) Urge incontinence Osteoporosis Chronic renal insufficiency GERD (gastroesophageal reflux disease) HTN (hypertension) Depression Rheumatoid arthritis Osteoarthritis (arthritis due to wear and tear of joints) Other cervical disc degeneration, unspecified cervical region Other intervertebral disc degeneration, lumbar region Idiopathic gout, unspecified site Chronic pain syndrome Surgical History (Updated 09/04/24 @ 11:04 by Yeni Negron RN) History of bunionectomy H/O colonoscopy Hx of appendectomy History of amputation History of surgery History of surgery Social History Comment: counts correct Patient Tobacco Use Status: Former Tobacco user Second Hand Smoke Exposure: No Review of Systems Const All systems reviewed & are unremarkable except as noted in HPI and below Physical Exam Vital Signs: BMI result Body Mass Index 41.4 No acute distress comfortable in the stretcher vital signs stable afebrile normotensive Const General: cooperative Nutritional Appearance: obese Neck Neck: Yes normal visual inspection Resp Effort & Inspection: normal respiratory effort Cardio Jugular venous distension: no JVD GI Inspection: Yes normal to inspection Back/Spine/Pelvis Cervical Spine: normal cervical lordosis Assessment & Plan Assessment & Plan (1) Spinal cord stimulator dysfunction: Code(s): T85.192A - Other mechanical complication of implanted electronic neurostimulator of spinal cord electrode (lead), initial encounter Category: Medical (2) S/P insertion of sacral nerve stimulator: Code(s): Z96.89 - Presence of other specified functional implants Category: Surgical Plan The procedure of removal and replacement of the [employer] battery was performed on 09/06/2024. I decided not to remove the stimulator remnants of the sacral stimulation because patient reported that it was removed because of the infection. I did not want to compromise current battery implantation with potential indolent infection from the remnants of the sacral stimulator device. If patient would like to in the future I can remove those 2 remnant leads. Unfortunately this will not help the patient to go for the MRI because according to the patient in the past she had some fracture treated with hardware and since then she can not go to MRI because of that. Counseling was done on hygiene limitations, mobility and activities limitations, abdominal binder. [employer] enrollment representative was picking today with the patient and adjusting the stimulation for the patient. New appointment as needed. Coding Level of Care Code Est Pt Level 3 (57917) Diagnoses Spinal cord stimulator dysfunction T85.192A S/P insertion of sacral nerve stimulator Z96.89
[2024-09-19 11:41] VITALS: BMI 41.4
== END 2024-09-19 11:54 | disposition home or self-care (01) ==
LOC: HO.PMC 11:13
PROVIDERS: PCP Nurse Practitioner Adult Health; Visit Provider Anesthesiology
DX: T85.192A Other mechanical complication of implanted electronic neurostimulator of spinal cord electrode (lead), initial encounter (principal); Z96.89 Presence of other specified functional implants
CPT/HCPCS: 99213

== ENCOUNTER → 2024-09-19 11:13 | Outpatient (BNVA) | payer MEDICARE, SELFPAY | PROVIDERS: PCP Nurse Practitioner Adult Health; Visit Provider Anesthesiology | DX: T85.192D Other mechanical complication of implanted electronic neurostimulator of spinal cord electrode (lead), subsequent encounter (principal); Z96.89 Presence of other specified functional implants | CPT/HCPCS: 99212 ==